=== PATIENT | male | born 1935 | race Caucasian/White ===

== ENCOUNTER 2016-08-20 12:37 | Outpatient (CLI) | payer MEDICARE | END 2016-08-20 12:38 | disposition home or self-care (01) | DX: I48.91 Unspecified atrial fibrillation (principal) ==

== ENCOUNTER 2016-10-21 13:20 | Outpatient (CLI) | payer MEDICARE | END 2016-10-21 13:21 | DX: I48.91 Unspecified atrial fibrillation (principal) ==

== ENCOUNTER 2016-10-28 16:11 | Outpatient (CLI) | payer MEDICARE | END 2016-10-28 16:12 | disposition home or self-care (01) | DX: I48.91 Unspecified atrial fibrillation (principal) ==

== ENCOUNTER 2016-11-05 14:44 | Outpatient (CLI) | payer MEDICARE | END 2016-11-05 14:45 | disposition home or self-care (01) | DX: I48.91 Unspecified atrial fibrillation (principal) ==

== ENCOUNTER 2016-11-19 15:56 | Outpatient (CLI) | payer MEDICARE | END 2016-11-19 23:59 | DX: I48.91 Unspecified atrial fibrillation (principal) ==

== ENCOUNTER 2016-11-26 14:43 | Outpatient (CLI) | payer MEDICARE | END 2016-11-26 14:44 | disposition home or self-care (01) | DX: I48.91 Unspecified atrial fibrillation (principal) ==

== ENCOUNTER 2016-12-01 13:00 | Outpatient (CLI) | payer MEDICARE | END 2016-12-01 13:01 | disposition home or self-care (01) | DX: I48.91 Unspecified atrial fibrillation (principal) ==

== ENCOUNTER 2016-12-15 10:41 | Outpatient (CLI) | payer MEDICARE | END 2016-12-15 10:42 | disposition home or self-care (01) | LOC: LAB.F 10:41 | PROVIDERS: ATTEND Emergency Medicine | DX: I48.91 Unspecified atrial fibrillation (principal) | CPT/HCPCS: 85610 ==

== ENCOUNTER 2016-12-31 08:00 | Outpatient (CLI) | payer MEDICARE | END 2016-12-31 08:01 | disposition home or self-care (01) | LOC: LAB.F 08:00 | PROVIDERS: ATTEND Emergency Medicine | DX: I48.91 Unspecified atrial fibrillation (principal) | CPT/HCPCS: 85610 ==

== ENCOUNTER 2016-12-31 15:28 | Outpatient (CLI) | payer MEDICARE | END 2016-12-31 15:29 | disposition home or self-care (01) | LOC: LAB.F 15:28 | PROVIDERS: ATTEND Emergency Medicine | DX: I48.91 Unspecified atrial fibrillation (principal) ==

== ENCOUNTER 2017-01-27 13:20 | Outpatient (CLI) | payer MEDICARE | END 2017-01-27 13:21 | disposition home or self-care (01) | LOC: LAB.F 13:20 | PROVIDERS: ATTEND Emergency Medicine | DX: I48.91 Unspecified atrial fibrillation (principal) | CPT/HCPCS: 85610 ==

== ENCOUNTER 2017-02-10 08:00 | Outpatient (CLI) | payer MEDICARE | END 2017-02-10 08:01 | disposition home or self-care (01) | LOC: LAB.F 08:00 | PROVIDERS: ATTEND Emergency Medicine | DX: I48.91 Unspecified atrial fibrillation (principal) | CPT/HCPCS: 85610 ==

== ENCOUNTER 2017-03-10 13:47 | Outpatient (CLI) | payer MEDICARE | END 2017-03-10 13:48 | disposition home or self-care (01) | LOC: LAB.F 13:47 | PROVIDERS: ATTEND Emergency Medicine | DX: I48.91 Unspecified atrial fibrillation (principal) | CPT/HCPCS: 85610 ==

== ENCOUNTER 2017-03-24 11:23 | Outpatient (CLI) | payer MEDICARE | END 2017-03-24 11:24 | disposition home or self-care (01) | LOC: LAB.F 11:23 | PROVIDERS: ATTEND Emergency Medicine | DX: I48.91 Unspecified atrial fibrillation (principal) | CPT/HCPCS: 85610 ==

== ENCOUNTER 2017-04-07 09:30 | Outpatient (CLI) | payer MEDICARE | END 2017-04-07 09:31 | disposition home or self-care (01) | LOC: LAB.F 09:30 | PROVIDERS: ATTEND Emergency Medicine | DX: I48.91 Unspecified atrial fibrillation (principal) | CPT/HCPCS: 85610 ==

== ENCOUNTER 2017-05-07 13:39 | Outpatient (CLI) | payer MEDICARE | END 2017-05-07 13:40 | disposition home or self-care (01) | LOC: LAB.F 13:39 | PROVIDERS: ATTEND Emergency Medicine | DX: I48.91 Unspecified atrial fibrillation (principal) | CPT/HCPCS: 85610 ==

== ENCOUNTER 2017-06-04 11:25 | Outpatient (CLI) | payer MEDICARE | END 2017-06-04 11:26 | disposition home or self-care (01) | LOC: LAB.F 11:25 | PROVIDERS: ATTEND Internal Medicine | DX: I48.91 Unspecified atrial fibrillation (principal) | CPT/HCPCS: 85610 ==

== ENCOUNTER 2017-06-15 10:53 | Outpatient (CLI) | payer MEDICARE | END 2017-06-15 10:54 | disposition home or self-care (01) | LOC: LAB.F 10:53 | PROVIDERS: ATTEND Emergency Medicine | DX: I48.91 Unspecified atrial fibrillation (principal) | CPT/HCPCS: 85610 ==

== ENCOUNTER 2017-06-22 10:31 | Outpatient (CLI) | payer MEDICARE | END 2017-06-22 10:32 | disposition home or self-care (01) | LOC: LAB.F 10:31 | PROVIDERS: ATTEND Emergency Medicine | DX: I48.91 Unspecified atrial fibrillation (principal) | CPT/HCPCS: 85610 ==

== ENCOUNTER 2017-08-16 08:00 | Outpatient (CLI) | payer MEDICARE | END 2017-08-16 08:01 | disposition home or self-care (01) | LOC: LAB.F 08:00 | PROVIDERS: ATTEND Emergency Medicine | DX: I48.91 Unspecified atrial fibrillation (principal) | CPT/HCPCS: 85610 ==

== ENCOUNTER 2017-08-30 12:38 | Outpatient (CLI) | payer MEDICARE | END 2017-08-30 12:39 | disposition home or self-care (01) | LOC: LAB.F 12:38 | PROVIDERS: ATTEND Emergency Medicine | DX: I48.91 Unspecified atrial fibrillation (principal) | CPT/HCPCS: 85610 ==

== ENCOUNTER 2017-09-08 23:14 | Emergency (ER) | payer MEDICARE ==
[2017-09-08 23:47] LABS: BILIRUBIN,URINE NEGATIVE (NEGATIVE); GLUCOSE, URINE (UA) 250 mg/dL (NEGATIVE); KETONES,URINE (UA) TRACE mg/dL (NEGATIVE); LEUKOCYTE ESTERASE, URINE NEGATIVE (NEGATIVE); NITRITE,URINE POSITIVE (NEGATIVE); OCCULT BLOOD,URINE LARGE (NEGATIVE); PH,URINE 5.5 PH (5.0-7.5); PROTEIN,URINE 100 mg/dL (NEGATIVE); UROBILINOGEN,URINE 2 E.U./dL (NORMAL)
[2017-09-08 23:48] LABS: CLARITY,URINE HAZY (CLEAR)
[2017-09-08 23:54] LABS: BACTERIA,URINE Few /HPF (None Seen); RBC,URINE TNTC /HPF (0-5); SQUAMOUS EPITHELIAL CELL,UR RARE Squamous (<= Few)
--- NOTE | 2017-09-09 00:04 | ED Physician Documentation ---
PD HPI ABD PAIN - Stated complaint Stated Complaint: MALE /ABD PX - Chief complaint Chief Complaint: Abd Pain - History obtained from History obtained from: Patient, Family - History of Present Illness Timing - onset: Enter time (1899), Today Timing - duration: Hours Timing - details: Gradual onset, Still present Quality: Sharp, Pain Location: Suprapubic Improved by: Laying still Worsened by: Moving, Position, Palpation Associated symptoms: Nausea, Dysuria, Hematuria Similar symptoms before: Has not had sx before Recently seen: Clinic - Additional information Additional information: 81-year-old male with a prior history of CABG has developed urinary frequency and urgency last night and he went into see his primary care doctor at [facility] in [place] today and was diagnosed with a urinary tract infection and he was put onto some amoxicillin. This afternoon his urine output was only a small amount of time and then only a dribble he began to have some suprapubic pain and is come in now with uncomfortable cramping pain. A catheter is been placed and he is much improved.He has had a low-grade fever he has not vomited. He does feel somewhat lightheaded. Review of Systems Constitutional: reports: Fever Eyes: denies: Decreased vision Ears: denies: Ear pain Nose: denies: Congestion Throat: denies: Sore throat Cardiac: denies: Chest pain / pressure, Palpitations Respiratory: denies: Dyspnea, Cough GI: reports: Abdominal Pain, Nausea. denies: Vomiting, Constipation, Diarrhea : reports: Dysuria, Frequency, Unable to Void Skin: denies: Rash Musculoskeletal: denies: Neck pain, Back pain, Extremity pain PD PAST MEDICAL HISTORY - Past Medical History Past Medical History: Yes Cardiovascular: Hypertension, Atrial flutter Endocrine/Autoimmune: Type 2 diabetes - Past Surgical History Past Surgical History: Yes Cardiovascular: Pacemaker, Other - Present Medications Home Medications: Ambulatory Orders Medication Instructions Recorded Confirmed Fluticasone [Flonase] 50 mcg INH DAILY 11/18/14 09/09/17 Hydrochlorothiazide 25 mg PO DAILY 11/18/14 09/09/17 Lisinopril 20 mg PO DAILY 11/18/14 09/09/17 Warfarin [Coumadin] 10 mg PO DAILY 11/18/14 09/09/17 Aspirin 81 mg PO DAILY 02/03/15 09/09/17 Atorvastatin [Lipitor] 20 mg PO DAILY 02/03/15 09/09/17 Metoprolol Tartrate 37.5 mg PO BID 02/03/15 09/09/17 metFORMIN [Glucophage] tab PO BID 09/09/17 - Allergies Allergies/Adverse Reactions: Allergies Allergy/AdvReac Type Severity Reaction Status Date / Time No Known Drug Allergies Allergy Verified 09/09/17 00:14 - Social History Does the pt smoke?: No Smoking Status: Never smoker Does the pt drink ETOH?: Yes Does the pt have substance abuse?: Yes Substance Use and Type: Marijuana - Immunizations Immunizations are current?: Yes PD ED PE NORMAL - Vitals Vital signs reviewed: Yes (Tachycardic and hypertensive) - General General: Alert and oriented X 3, No acute distress, Well developed/nourished - HEENT HEENT: Atraumatic, PERRL - Neck Neck: Supple, no meningeal sign - Cardiac Cardiac: RRR, No murmur - Respiratory Respiratory: No respiratory distress, Clear bilaterally - Abdomen Abdomen: Soft, Non tender - Back Back: No CVA TTP, No spinal TTP - Derm Derm: Normal color, Warm and dry, No rash - Extremities Extremities: No deformity, No edema - Neuro Neuro: No motor deficit, No sensory deficit Eye Opening: Spontaneous Motor: Obeys Commands Verbal: Oriented GCS Score: 15 - Psych Psych: Normal mood, Normal affect Results - Vitals Vitals: Vital Signs - 24 hr 09/08/17 09/09/17 23:15 01:17 Temperature 37.1 C Heart Rate 105 H 68 Respiratory 24 16 Rate Blood Pressure 172/78 H 128/83 H O2 Saturation 100 95 Oxygen O2 Source Room air - Labs Labs: Laboratory Tests 09/08/17 09/09/17 09/09/17 23:35 00:05 00:05 WBC 16.1 H RBC 4.41 L Hgb 13.3 L Hct 38.6 L MCV 87.4 MCH 30.2 MCHC 34.6 RDW 13.9 Plt Count 156 MPV 7.5 Neut # 13.6 H Lymph # 1.0 L [place] # 1.4 H Eos # 0.1 Baso # 0.1 Absolute Nucleated RBC 0.00 Nucleated RBC % 0.0 PT INR Sodium 133 L Potassium 3.2 L Chloride 94 L Carbon Dioxide 26 Anion Gap 13.0 BUN 23 H Creatinine 0.8 Estimated GFR (MDRD) 93 Glucose 194 H Calcium 9.4 Total Bilirubin 1.1 H AST 19 ALT 16 Alkaline Phosphatase 54 Total Protein 7.0 Albumin 4.0 Globulin 3.0 Albumin/Globulin Ratio 1.3 Lipase 17 L Urine Color YELLOW Urine Clarity HAZY Urine pH 5.5 Ur Specific [place] 1.020 Urine Protein 100 H Urine Glucose (UA) 250 H Urine Ketones TRACE Urine Occult Blood LARGE H Urine Nitrite POSITIVE H Urine Bilirubin NEGATIVE Urine Urobilinogen 2 H Ur Leukocyte Esterase NEGATIVE Urine RBC TNTC H Urine WBC 0-3 Ur Squamous Epith Cells RARE Squamous Urine Bacteria Few Ur Microscopic Review INDICATED Urine Culture Comments INDICATED 09/09/17 00:05 WBC RBC Hgb Hct MCV MCH MCHC RDW Plt Count MPV Neut # Lymph # [place] # Eos # Baso # Absolute Nucleated RBC Nucleated RBC % PT 28.1 H INR 2.6 H Sodium Potassium Chloride Carbon Dioxide Anion Gap BUN Creatinine Estimated GFR (MDRD) Glucose Calcium Total Bilirubin AST ALT Alkaline Phosphatase Total Protein Albumin Globulin Albumin/Globulin Ratio Lipase Urine Color Urine Clarity Urine pH Ur Specific [place] Urine Protein Urine Glucose (UA) Urine Ketones Urine Occult Blood Urine Nitrite Urine Bilirubin Urine Urobilinogen Ur Leukocyte Esterase Urine RBC Urine WBC Ur Squamous Epith Cells Urine Bacteria Ur Microscopic Review Urine Culture Comments PD MEDICAL DECISION MAKING - ED course Complexity details: reviewed old records, reviewed results, re-evaluated patient , considered differential, d/w patient, d/w family ED course: 81-year-old male with a history of A. fib and status post CABG has developed a urinary tract infection and tonight has developed urinary retention.He was seen earlier today and placed on amoxicillin his urinalysis does appear to have less white blood cells in it this evening and is positive for nitrites. He is administered intravenous saline and Zosyn. His urinary retention is treated with a Gurrola catheter which is left in place approximately 400 mL's of blood- tinged urine was drained with relief of the patient's pain. We will leave the Gurrola catheter in place and the patient will continue on his amoxicillin. Culture will be pending from today from both here and his primary care. Departure - Departure Disposition: 01 Home, Self Care Clinical Impression: Urinary retention Urinary tract infection Qualifiers: Urinary tract infection type: acute cystitis Hematuria presence: with hematuria Qualified Code(s): N30.01 - Acute cystitis with hematuria Condition: Stable Instructions: ED UTI Cystitis Male, ED Catheter Care Gurrola, ED Retention Urinary Male Follow-Up: Your, doctor [Other] Comments: Today it appears you have a urinary tract infection that has caused some fever as well as urinary retention. He will need to have a Gurrola catheter in place for up to a week and you should follow-up with her primary care doctor for removal of this we did give you a single dose of intravenous antibiotic here and we are expecting some improvement in the fever. If you continue to feel ill or feel worse return to the emergency department for further treatment.
[2017-09-09] MEDS ORDERED: SODIUM CHLORIDE 0.9% 1,000 ML IV ONE (00:05)
[2017-09-09] MEDS ORDERED: PIPERACILLIN/TAZOBACTAM 3.375 GM in SODIUM CHLORIDE 0.9% MINIBAG 100 ML IV STA (00:06)
[2017-09-09 00:15] LABS: BASOPHILS # (AUTO) 0.1 10^3/uL (0.0-0.1); BASOPHILS % (AUTO) 0.4 %; EOSINOPHILS # (AUTO) 0.1 10^3/uL (0.0-0.7); EOSINOPHILS % (AUTO) 0.4 %; HGB - HEMOGLOBIN 13.3 g/dL (14.0-18.0); LYMPHOCYTES % (AUTO) 6.4 %; MEAN CORPUSCULAR HEMOGLOBIN 30.2 pg (27.0-31.0); MEAN CORPUSCULAR HGB CONC 34.6 g/dL (32.0-36.0); MEAN CORPUSCULAR VOLUME 87.4 fL (80.0-94.0); MEAN PLATELET VOLUME 7.5 fL (7.4-11.4); MONOCYTES # (AUTO) 1.4 10^3/uL (0.0-1.0); MONOCYTES % (AUTO) 8.6 %; NEUTROPHILS # (AUTO) 13.6 10^3/uL (1.5-6.6); NEUTROPHILS % (AUTO) 84.2 %; PLT - PLATELET COUNT 156 10^3/uL (130-450); RED BLOOD COUNT 4.41 10^6/uL (4.70-6.10); RED CELL DISTRIBUTION WIDTH 13.9 % (12.0-15.0); WHITE BLOOD COUNT 16.1 x10^3/uL (4.8-10.8)
[2017-09-09 00:20] LABS: INR 2.6 (0.8-1.2); PT - PROTHROMBIN TIME 28.1 secs (9.9-12.6)
[2017-09-09 00:27] LABS: ALBUMIN/GLOBULIN RATIO 1.3 (1.0-2.2); BILIRUBIN,TOTAL 1.1 mg/dL (0.2-1.0); CALCIUM 9.4 mg/dL (8.5-10.3); CREATININE 0.8 mg/dL (0.6-1.2)
[2017-09-09] MEDS ORDERED: POTASSIUM CHLORIDE 20 MEQ TABLET PO STA (01:02)
[2017-09-09 02:19] VITALS: BP 154/78
== END 2017-09-09 02:18 | disposition home or self-care (01) ==
LOC: ED 23:14
DX: R33.9 Retention of urine, unspecified (principal); N30.01 Acute cystitis with hematuria; E11.9 Type 2 diabetes mellitus without complications; I10 Essential (primary) hypertension; I48.92 Unspecified atrial flutter; Z79.01 Long term (current) use of anticoagulants; Z79.82 Long term (current) use of aspirin; Z95.1 Presence of aortocoronary bypass graft
CPT/HCPCS: 51702; 51798; 80053; 81001; 83690; 85025; 85610; 87086; 96365; 99283; 99284; A9270; 81003

== ENCOUNTER 2017-09-09 22:03 | Emergency (ER) | payer MEDICARE ==
[2017-09-09] MEDS ORDERED: LIDOCAINE 2% URO-JET 5 ML SYRINGE UR STA (22:12)
--- NOTE | 2017-09-09 22:18 | ED Physician Documentation ---
PD HPI MALE - Stated complaint Stated Complaint: MALE - Chief complaint Chief Complaint: Abd Pain - History obtained from History obtained from: Patient - History of Present Illness Timing - details: Abrupt onset, Still present Associated symptoms: Dysuria Recently seen: Emergency Dept (had been seen in office ith Dx of UTI and put on abx, but then with urinary retention. Seen in ED last night and had sandoval placed. Some blood in urine after sandoval. He was draining okay todya until this evening when urine stopped coming out. Here with bladder fullness, pain.) Review of Systems Constitutional: denies: Fever, Chills GI: reports: Abdominal Pain. denies: Vomiting, Diarrhea : reports: Hematuria (since sandoval) PD PAST MEDICAL HISTORY - Past Medical History Cardiovascular: Hypertension, Atrial flutter Endocrine/Autoimmune: Type 2 diabetes - Past Surgical History Past Surgical History: Yes Cardiovascular: Pacemaker, Other - Present Medications Home Medications: Ambulatory Orders Medication Instructions Recorded Confirmed Fluticasone [Flonase] 50 mcg INH DAILY 11/18/14 09/09/17 Hydrochlorothiazide 25 mg PO DAILY 11/18/14 09/09/17 Lisinopril 20 mg PO DAILY 11/18/14 09/09/17 Warfarin [Coumadin] 10 mg PO DAILY 11/18/14 09/09/17 Aspirin 81 mg PO DAILY 02/03/15 09/09/17 Atorvastatin [Lipitor] 20 mg PO DAILY 02/03/15 09/09/17 Metoprolol Tartrate 37.5 mg PO BID 02/03/15 09/09/17 metFORMIN [Glucophage] tab PO BID 09/09/17 - Allergies Allergies/Adverse Reactions: Allergies Allergy/AdvReac Type Severity Reaction Status Date / Time No Known Drug Allergies Allergy Verified 09/09/17 22:10 - Social History Does the pt smoke?: No Smoking Status: Never smoker Does the pt drink ETOH?: Yes Does the pt have substance abuse?: Yes - Immunizations Immunizations are current?: Yes PD ED PE NORMAL - Vitals Vital signs reviewed: Yes - General General: Alert and oriented X 3, Well developed/nourished, Other (appears uncomfortable) - Abdomen Abdomen: Soft, Non tender, Non distended - Male Male : Other (external genitalia normal. Sandoval in place but not draining. ) - Rectal Rectal: Deferred - Back Back: No CVA TTP - Derm Derm: Normal color Results - Vitals Vitals: Vital Signs - 24 hr 09/09/17 22:07 Temperature 36.5 C Heart Rate 111 H Respiratory 22 Rate Blood Pressure 182/114 H O2 Saturation 98 Oxygen O2 Source Room air PD MEDICAL DECISION MAKING - ED course Complexity details: reviewed old records, re-evaluated patient (It will instill but not drain back. Presume some clots at end. Can have nurse irrigate again and might need to replace it again with three way to promote irrigation. Once flowing more consistent, will discharge with sandoval instructions. ), considered differential (nursing removed prior sandoval and placed larger one. Blood from sandoval and passed clot initially, then 400 ml urine out. It now will flush but not return easily. Will have nursing irrigate it more to get clots out. ), d/w patient Departure - Departure Disposition: 01 Home, Self Care Clinical Impression: Anticoagulant long-term use Complication, blocked Sandoval catheter Qualifiers: Encounter type: subsequent encounter Qualified Code(s): T83.091D - Other mechanical complication of indwelling urethral catheter, subsequent encounter Hematuria Qualifiers: Hematuria type: gross Qualified Code(s): R31.0 - Gross hematuria Condition: Stable Record reviewed to determine appropriate education?: Yes Instructions: ED Catheter Care Sandoval Follow-Up: JULIETTE ONEAL MD [Primary Care Provider] - Comments: Continue current medications. You can try irrigating the Sandoval if it does not seem to be draining well. Return if needed. Follow-up with your primary care in 3-5 days.
[2017-09-09] MEDS ORDERED: HYDROmorphone 1 MG/ML SYRINGE IM STA ×2 (22:31→23:41)
[2017-09-09] MEDS ORDERED: OXYBUTYNIN 5MG TABLET PO STA (22:32)
[2017-09-09] MEDS ORDERED: KETOROLAC 60 MG/2 ML VIAL IM STA (23:41)
--- NOTE | 2017-09-10 02:08 | MISCELLANEOUS PROVIDER NOTE ---
Miscellaneous Provider Note - - Note: Received sign-out from Dr. Priest. Patient was already flagged for discharge, but patient and spouse requested to stay a little longer, as they were anxious that the catheter might clot off again. They proposed waiting in the waiting room, at which point I suggested that if they were going to do so, it would make more sense to hold him in the ED so that he wouldn't have to reregister should the catheter clot off. I recommended he increase PO fluids, and he was given plenty of water to drink. The urine continued to flow well into the catheter, remained bloody but not opaque. By 2 AM, patient was requesting discharge, feels comfortable going home and has urology follow-up already arranged for later today.
[2017-09-10 02:45] VITALS: BP 148/88
== END 2017-09-10 02:30 | disposition home or self-care (01) ==
LOC: ED 22:03
DX: T83.098A Other mechanical complication of other urinary catheter, initial encounter (principal); R31.0 Gross hematuria; I48.92 Unspecified atrial flutter; Z79.01 Long term (current) use of anticoagulants; I10 Essential (primary) hypertension; E11.9 Type 2 diabetes mellitus without complications; Z79.84 Long term (current) use of oral hypoglycemic drugs; Z95.0 Presence of cardiac pacemaker; Z79.82 Long term (current) use of aspirin; R33.9 Retention of urine, unspecified; N30.01 Acute cystitis with hematuria; Z95.1 Presence of aortocoronary bypass graft; R11.0 Nausea
CPT/HCPCS: 51702; 51703; 51798; 80053; 81001; 83690; 85025; 85610; 87086; 96365; 96372; 99283; 99284; A9270; J1170; 81003

== ENCOUNTER 2017-09-12 17:00 | Emergency (ER) | payer MEDICARE ==
[2017-09-12 17:20] VITALS: BP 160/104
[2017-09-12] MEDS ORDERED: OPIUM/BELLADONNA 60/16.2MG SUPPOSITORY PR STA (17:24)
--- NOTE | 2017-09-12 17:28 | ED Physician Documentation ---
History of Present Illness - Stated complaint Stated Complaint: MALE - Chief complaint Chief Complaint: Abd Pain - History obtained from History obtained from: Patient, Family - History of Present Illness Pain level max: 8 Pain level now: 3 Improved by: nothing Worsened by: nothing - Additonal information Additional information: Patient is a 81-year-old male who presents to the emergency department with bladder spasms after having a Sandoval catheter inserted. His Sandoval catheter has been in place for a UTI with continued bleeding. He is on warfarin as well. Saw the urologist on Wednesday, the catheter was upsized and he was placed on oxybutynin. Continued to have spasms. Because of the continued spasm and and lack of relief with oxybutynin, came to the emergency department for evaluation. The catheter is still draining freely, light pink in color Review of Systems Constitutional: denies: Fever, Chills Respiratory: denies: Cough GI: reports: Constipation (intermittent). denies: Vomiting Skin: denies: Rash Musculoskeletal: denies: Neck pain, Back pain Neurologic: denies: Headache PD PAST MEDICAL HISTORY - Past Medical History Past Medical History: Yes Cardiovascular: Hypertension, Atrial flutter Endocrine/Autoimmune: Type 2 diabetes : Indwelling catheter Other Past Medical History: urinary blockage - Past Surgical History Past Surgical History: Yes Cardiovascular: Pacemaker, Other - Present Medications Home Medications: Ambulatory Orders Medication Instructions Recorded Confirmed Fluticasone [Flonase] 50 mcg INH DAILY 11/18/14 09/09/17 Hydrochlorothiazide 25 mg PO DAILY 11/18/14 09/09/17 Lisinopril 20 mg PO DAILY 11/18/14 09/09/17 Warfarin [Coumadin] 10 mg PO DAILY 11/18/14 09/09/17 Aspirin 81 mg PO DAILY 02/03/15 09/09/17 Atorvastatin [Lipitor] 20 mg PO DAILY 02/03/15 09/09/17 Metoprolol Tartrate 37.5 mg PO BID 02/03/15 09/09/17 metFORMIN [Glucophage] tab PO BID 09/09/17 Amoxicillin 500 mg PO 09/12/17 09/12/17 Docusate Sodium 250Mg Capsule 250 mg PO DAILY PRN #20 capsule 09/12/17 [Colace 250Mg Capsule] Hydrocodone/Acetaminophen 1 - 2 each PO Q6H PRN #14 tablet 09/12/17 [Hydrocodon-Acetaminophen 5-325] Opium/Belladonn 60/16.2MG Supp [B 1 each AL Q6H PRN #14 supp 09/12/17 & O Supp] Oxybutynin Chloride [Ditropan Xl] 10 mg PO 09/12/17 Polyethylene Glycol 3350 [Miralax] 17 gm PO DAILY PRN #1 bottle 09/12/17 - Allergies Allergies/Adverse Reactions: Allergies Allergy/AdvReac Type Severity Reaction Status Date / Time No Known Drug Allergies Allergy Verified 09/12/17 17:11 - Social History Does the pt smoke?: No Smoking Status: Never smoker Does the pt drink ETOH?: Yes Does the pt have substance abuse?: Yes - Immunizations Immunizations are current?: Yes PD ED PE NORMAL - Vitals Vital signs reviewed: Yes - General General: Alert and oriented X 3, No acute distress - HEENT HEENT: Moist mucous membranes - Cardiac Cardiac: RRR - Respiratory Respiratory: No respiratory distress, Clear bilaterally - Abdomen Abdomen: Soft, Non tender, Non distended - Male Male : Other (sandoval in place, draining light pink urine) - Derm Derm: Warm and dry - Neuro Neuro: Alert and oriented X 3 - Psych Psych: Normal mood, Normal affect Results - Vitals Vitals: Vital Signs - 24 hr 09/12/17 17:07 Temperature 36.7 C Heart Rate 82 Respiratory 18 Rate Blood Pressure 160/104 H O2 Saturation 96 Oxygen O2 Source Room air PD MEDICAL DECISION MAKING - ED course Complexity details: reviewed old records, re-evaluated patient, considered differential, d/w patient, d/w family, d/w account consultant (Dr. Lazar (urology oncology patient navigator for Dr. Geiger)) ED course: Patient sees Dr. Geiger for urology at [facility]. On-call physician was contacted. Discussed case with Dr. Lazar, he recommends that the patient can increase the oxybutynin, 2 pills twice a day or we can trial the patient on B and O suppositories along with some pain medication and stool softeners. Discussed the option with the patient and his , they will trial a B and O suppositories, but I will also prescribe some pain medication and stool softeners for them. We will have him follow-up with urology on Wednesday as scheduled. Patient and family counseled regarding signs and symptoms for which I believe and urgent re-evaluation would be necessary. Patient with good understanding of and agreement to plan and is comfortable going home at this time This document was made in part using voice recognition software. While efforts are made to proofread this document, sound alike and grammatical errors may occur. Departure - Departure Disposition: Home, Self Care Clinical Impression: Bladder spasm Condition: Good Instructions: ED Catheter Care Sandoval Follow-Up: Provider,Other [Primary Care Provider] - Within 1 week Prescriptions: Docusate Sodium 250Mg Capsule [Colace 250Mg Capsule] 250 mg PO DAILY PRN #20 capsule PRN Reason: Constipation Hydrocodone/Acetaminophen [Hydrocodon-Acetaminophen 5-325] 1 - 2 each PO Q6H PRN #14 tablet PRN Reason: pain Opium/Belladonn 60/16.2MG Supp [B & O Supp] 1 each AL Q6H PRN #14 supp PRN Reason: Bladder Spasms Polyethylene Glycol 3350 [Miralax] 17 gm PO DAILY PRN #1 bottle PRN Reason: Constipation Comments: Return if you worsen. Follow-up with urology for further care. You can also double to oxybutynin dose. I spoke with Dr. Nagi bradford. Discharge Date/Time: 09/12/17 18:05
== END 2017-09-12 18:05 | disposition home or self-care (01) ==
LOC: ED 17:00
DX: N32.89 Other specified disorders of bladder (principal); E11.9 Type 2 diabetes mellitus without complications; I10 Essential (primary) hypertension; Z95.0 Presence of cardiac pacemaker; Z79.01 Long term (current) use of anticoagulants; Z79.82 Long term (current) use of aspirin; Z96.0 Presence of urogenital implants
CPT/HCPCS: 99283; A9270

== ENCOUNTER 2017-09-13 21:33 | Emergency (ER) | payer MEDICARE ==
[2017-09-13] MEDS ORDERED: HYDROmorphone 1 MG/ML SYRINGE IVP STA ×2 (21:56→22:22)
--- NOTE | 2017-09-13 22:02 | ED Physician Documentation ---
PD HPI MALE - Stated complaint Stated Complaint: MALE - Chief complaint Chief Complaint: Abd Pain - History obtained from History obtained from: Patient, Family - History of Present Illness Timing - onset: Other (see below) - Additional information Additional information: patient was evaluated at an urgent care center 09/08 and diagnosed with UTI, prescribed an antibiotic. He presented to [facility] ED that same day due to urinary retention and had resolution of symptoms with placement of sandoval catheter. He returned the following day due to urinary retention (secondary to blood clots in urine), with resolution of symptoms (severe suprapubic discomfort) with removal and replacement of the sandoval catheter. The following day (09/10), he was seen by urology in outpatient setting and the catheter was irrigated of clots. He returned to [facility] ED yesterday 09/12 for suprapubic pain and pain at head of penis; urinary retention was not suspected at that time, given B+O suppository and rx for hydrocodone for suspected bladder spasm. He returned to the outpatient clinic earlier today (in [place]) for same symptoms, sandoval irrigated and sent home but pain started again before he got home. gave 2 vicodin to patient which has provided no relief. Presents c/o pain at head of penis radiating to base of bladder. Review of Systems Constitutional: denies: Fever, Chills, Sweats Cardiac: reports: Reviewed and negative Respiratory: reports: Reviewed and negative GI: reports: Reviewed and negative : reports: Hematuria Musculoskeletal: denies: Back pain PD PAST MEDICAL HISTORY - Past Medical History Cardiovascular: Hypertension, Atrial flutter Endocrine/Autoimmune: Type 2 diabetes : Indwelling catheter - Past Surgical History Past Surgical History: Yes Cardiovascular: Pacemaker, Other - Present Medications Home Medications: Ambulatory Orders Medication Instructions Recorded Confirmed Fluticasone [Flonase] 50 mcg INH DAILY 11/18/14 09/09/17 Hydrochlorothiazide 25 mg PO DAILY 11/18/14 09/09/17 Lisinopril 20 mg PO DAILY 11/18/14 09/09/17 Warfarin [Coumadin] 10 mg PO DAILY 11/18/14 09/09/17 Aspirin 81 mg PO DAILY 02/03/15 09/09/17 Atorvastatin [Lipitor] 20 mg PO DAILY 02/03/15 09/09/17 Metoprolol Tartrate 37.5 mg PO BID 02/03/15 09/09/17 metFORMIN [Glucophage] tab PO BID 09/09/17 Amoxicillin 500 mg PO 09/12/17 09/12/17 Docusate Sodium 250Mg Capsule 250 mg PO DAILY PRN #20 capsule 09/12/17 [Colace 250Mg Capsule] Hydrocodone/Acetaminophen 1 - 2 each PO Q6H PRN #14 tablet 09/12/17 [Hydrocodon-Acetaminophen 5-325] Opium/Belladonn 60/16.2MG Supp [B 1 each [place] Q6H PRN #14 supp 09/12/17 & O Supp] Oxybutynin Chloride [Ditropan Xl] 10 mg PO 09/12/17 Polyethylene Glycol 3350 [Miralax] 17 gm PO DAILY PRN #1 bottle 09/12/17 - Allergies Allergies/Adverse Reactions: Allergies Allergy/AdvReac Type Severity Reaction Status Date / Time No Known Drug Allergies Allergy Verified 09/12/17 17:11 - Social History Does the pt smoke?: No Smoking Status: Never smoker Does the pt drink ETOH?: Yes Does the pt have substance abuse?: Yes - Immunizations Immunizations are current?: Yes PD ED PE NORMAL - Vitals Vital signs reviewed: Yes - General General: Alert and oriented X 3, Well developed/nourished, Other (obvious painful distress, grimacing and mildly diaphoretic) - HEENT HEENT: Moist mucous membranes - Cardiac Cardiac: RRR, No murmur - Respiratory Respiratory: No respiratory distress, Clear bilaterally - Abdomen Abdomen: Soft, Non distended, Other (TTP suprapubic ) - Back Back: No CVA TTP - Derm Derm: Normal color - Neuro Neuro: Alert and oriented X 3 Results - Vitals Vitals: Vital Signs - 24 hr 09/13/17 09/14/17 09/14/17 21:44 00:22 01:14 Temperature 36.4 C L Heart Rate 121 H 117 H 114 H Respiratory 26 H 22 18 Rate Blood Pressure 222/154 H 150/118 H 184/107 H O2 Saturation 98 95 94 Oxygen O2 Source Room air PD MEDICAL DECISION MAKING - ED course Complexity details: reviewed old records, reviewed results (patient had blood tests performed earlier today at the clinic at [place], and has those results with her; I reviewed these and CBC is unermarkable, INR 2.6), re- evaluated patient, considered differential, d/w patient, d/w family ED course: Given 1mg dilaudid and repeat dose with minimal relief. Bladder scan read zero on first read, 30cc on repeat. Thick blood noted in sandoval tubing. The catheter was irrigated and there was large UO (several hundred cc) associated with rapid relief of his pain. Unfortunately, he repeatedly went back into retention and thus catheter was changed to a 3-way catheter and CBI started. Case d/w Dr. Lazar (urology on-call for patient's urologist, Dr. Geiger), would consider transfer to the urgent care center at [place], as they have observation beds at that facility. I contacted the [facility] [place] and they arranged for this transfer. I received a call from [facility] medic on board with patient in ambulance; he called to report that patient was again in severe pain and no UO. He had immediately clamped off the CBI as soon as patient had no UO and the discomfort , and Black then tried to irrigate the catheter without success (able to instill fluid but not withdraw it). The plan we discussed at this point was to go to [facility] ED (nearest ED at the time of our discussion). I then contacted Dr. Sahni (ED physician at [facility]) to discuss the case with him. Departure - Departure Disposition: 02 Transfer Acute Care Hosp Clinical Impression: Urinary retention Hematuria Qualifiers: Hematuria type: gross Qualified Code(s): R31.0 - Gross hematuria Condition: Stable Discharge Date/Time: 09/14/17 01:35
[2017-09-13] MEDS ORDERED: HYDROmorphone 1 MG/ML SYRINGE ONE (22:04)
[2017-09-13] MEDS ORDERED: OPIUM/BELLADONNA 60/16.2MG SUPPOSITORY PR STA (22:23)
[2017-09-14] MEDS ORDERED: HYDROmorphone 1 MG/ML SYRINGE IVP STA ×2 (00:01→01:27)
[2017-09-14 01:16] VITALS: BP 184/107
== END 2017-09-14 01:35 | disposition short-term general hospital (02) ==
LOC: ED 21:33
DX: R33.9 Retention of urine, unspecified (principal); R31.0 Gross hematuria; I10 Essential (primary) hypertension; E11.9 Type 2 diabetes mellitus without complications; Z79.84 Long term (current) use of oral hypoglycemic drugs; Z79.01 Long term (current) use of anticoagulants; Z79.82 Long term (current) use of aspirin; Z95.0 Presence of cardiac pacemaker; Z96.0 Presence of urogenital implants
CPT/HCPCS: 51700; 96374; 96376; 99284; A9270; J1170

== ENCOUNTER 2017-09-14 01:38 | Outpatient (CLI) | payer MEDICARE | END 2017-09-14 01:39 | disposition other institution (70) | LOC: EMS 01:38 | PROVIDERS: ATTEND Surgery | DX: R33.9 Retention of urine, unspecified (principal); R10.30 Lower abdominal pain, unspecified; R11.10 Vomiting, unspecified; Z79.01 Long term (current) use of anticoagulants | CPT/HCPCS: A0425; A0426 ==

== ENCOUNTER 2017-10-28 10:30 | Outpatient (CLI) | payer MEDICARE ==
[2017-10-28 18:24] LABS: BASOPHILS # (AUTO) 0.1 10^3/uL (0.0-0.1); BASOPHILS % (AUTO) 0.9 %; EOSINOPHILS # (AUTO) 0.3 10^3/uL (0.0-0.7); EOSINOPHILS % (AUTO) 5.4 %; LYMPHOCYTES # (AUTO) 1.1 10^3/uL (1.5-3.5); LYMPHOCYTES % (AUTO) 19.3 %; MEAN CORPUSCULAR HEMOGLOBIN 24.3 pg (27.0-31.0); MEAN CORPUSCULAR HGB CONC 30.8 g/dL (32.0-36.0); MEAN CORPUSCULAR VOLUME 78.8 fL (80.0-94.0); MEAN PLATELET VOLUME 7.2 fL (7.4-11.4); MONOCYTES # (AUTO) 0.4 10^3/uL (0.0-1.0); MONOCYTES % (AUTO) 6.4 %; PLT - PLATELET COUNT 303 10^3/uL (130-450); RED BLOOD COUNT 4.11 10^6/uL (4.70-6.10); RED CELL DISTRIBUTION WIDTH 16.5 % (12.0-15.0); WHITE BLOOD COUNT 5.9 x10^3/uL (4.8-10.8)
[2017-10-28 18:34] LABS: PT - PROTHROMBIN TIME 22.1 secs (9.9-12.6)
== END 2017-10-28 10:31 | disposition home or self-care (01) ==
LOC: LAB.F 10:30
PROVIDERS: ATTEND Emergency Medicine
DX: I48.91 Unspecified atrial fibrillation (principal)
CPT/HCPCS: 36415; 85025; 85610

== ENCOUNTER 2017-12-02 13:51 | Outpatient (CLI) | payer MEDICARE | END 2017-12-02 13:52 | disposition home or self-care (01) | LOC: LAB.F 13:51 | PROVIDERS: ATTEND Emergency Medicine | DX: I48.91 Unspecified atrial fibrillation (principal) | CPT/HCPCS: 85610 ==

== ENCOUNTER 2018-02-24 11:22 | Outpatient (CLI) | payer MEDICARE | END 2018-02-24 11:23 | disposition home or self-care (01) | LOC: LAB.F 11:22 | PROVIDERS: ATTEND Emergency Medicine | DX: I48.91 Unspecified atrial fibrillation (principal) | CPT/HCPCS: 85610 ==

== ENCOUNTER 2018-03-10 11:48 | Outpatient (CLI) | payer MEDICARE | END 2018-03-10 11:49 | disposition home or self-care (01) | LOC: LAB.F 11:48 | PROVIDERS: ATTEND Emergency Medicine | DX: I48.91 Unspecified atrial fibrillation (principal) | CPT/HCPCS: 85610 ==

== ENCOUNTER 2018-03-17 14:14 | Outpatient (CLI) | payer MEDICARE | END 2018-03-17 14:15 | disposition home or self-care (01) | LOC: LAB.F 14:14 | PROVIDERS: ATTEND Emergency Medicine | DX: I48.91 Unspecified atrial fibrillation (principal) | CPT/HCPCS: 85610 ==

== ENCOUNTER 2018-04-12 11:12 | Outpatient (CLI) | payer MEDICARE | END 2018-04-12 11:13 | disposition home or self-care (01) | LOC: LAB.F 11:12 | PROVIDERS: ATTEND Emergency Medicine | DX: I48.91 Unspecified atrial fibrillation (principal) | CPT/HCPCS: 85610 ==

== ENCOUNTER 2018-04-19 11:54 | Outpatient (CLI) | payer MEDICARE | END 2018-04-19 11:55 | disposition home or self-care (01) | LOC: LAB.F 11:54 | PROVIDERS: ATTEND Emergency Medicine | DX: I48.91 Unspecified atrial fibrillation (principal) | CPT/HCPCS: 85610 ==

== ENCOUNTER 2018-05-30 13:52 | Outpatient (CLI) | payer MEDICARE | END 2018-05-30 13:53 | disposition home or self-care (01) | LOC: LAB.F 13:52 | PROVIDERS: ATTEND Emergency Medicine | DX: I48.91 Unspecified atrial fibrillation (principal) | CPT/HCPCS: 85610 ==

== ENCOUNTER 2018-06-14 08:24 | Outpatient (CLI) | payer MEDICARE | END 2018-06-14 08:25 | disposition home or self-care (01) | LOC: LAB.F 08:24 | PROVIDERS: ATTEND Emergency Medicine | DX: I48.91 Unspecified atrial fibrillation (principal) | CPT/HCPCS: 85610 ==

== ENCOUNTER 2018-07-11 13:08 | Outpatient (CLI) | payer MEDICARE | END 2018-07-11 13:09 | disposition home or self-care (01) | LOC: LAB.F 13:08 | PROVIDERS: ATTEND Emergency Medicine | DX: I48.91 Unspecified atrial fibrillation (principal) | CPT/HCPCS: 85610 ==

== ENCOUNTER 2018-08-01 12:39 | Outpatient (CLI) | payer MEDICARE | END 2018-08-01 12:40 | disposition home or self-care (01) | LOC: LAB.F 12:39 | PROVIDERS: ATTEND Emergency Medicine | DX: I48.91 Unspecified atrial fibrillation (principal) | CPT/HCPCS: 85610 ==

== ENCOUNTER 2018-09-06 11:27 | Outpatient (CLI) | payer MEDICARE | END 2018-09-06 11:28 | disposition home or self-care (01) | LOC: LAB.F 11:27 | PROVIDERS: ATTEND Emergency Medicine | DX: I48.91 Unspecified atrial fibrillation (principal) | CPT/HCPCS: 85610 ==

== ENCOUNTER 2018-10-18 13:55 | Outpatient (CLI) | payer MEDICARE | END 2018-10-18 13:56 | disposition home or self-care (01) | LOC: LAB.F 13:55 | PROVIDERS: ATTEND Emergency Medicine | DX: I48.91 Unspecified atrial fibrillation (principal) | CPT/HCPCS: 85610 ==

== ENCOUNTER 2018-11-08 12:43 | Outpatient (CLI) | payer MEDICARE | END 2018-11-08 12:44 | disposition home or self-care (01) | LOC: LAB.F 12:43 | PROVIDERS: ATTEND Emergency Medicine | DX: I48.91 Unspecified atrial fibrillation (principal) | CPT/HCPCS: 85610 ==

== ENCOUNTER 2018-11-18 09:37 | Outpatient (CLI) | payer MEDICARE | END 2018-11-18 09:38 | disposition home or self-care (01) | LOC: LAB.F 09:37 | PROVIDERS: ATTEND Emergency Medicine | DX: I48.91 Unspecified atrial fibrillation (principal) | CPT/HCPCS: 85610 ==

== ENCOUNTER 2019-05-18 10:08 | Outpatient (CLI) | payer MEDICARE | END 2019-05-18 10:09 | disposition home or self-care (01) | LOC: LAB.S 10:08 | PROVIDERS: ATTEND Emergency Medicine | DX: I48.91 Unspecified atrial fibrillation (principal) | CPT/HCPCS: 85610 ==

== ENCOUNTER 2021-03-03 12:45 | Emergency (ER) | payer MEDICARE ==
[2021-03-03 13:29] LABS: BASOPHILS # (AUTO) 0.1 10^3/uL (0.0-0.1); BASOPHILS % (AUTO) 0.5 %; EOSINOPHILS # (AUTO) 0.3 10^3/uL (0.0-0.7); EOSINOPHILS % (AUTO) 1.6 %; HGB - HEMOGLOBIN 14.4 g/dL (14.0-18.0); LYMPHOCYTES # (AUTO) 0.8 10^3/uL (1.5-3.5); MEAN CORPUSCULAR HGB CONC 32.7 g/dL (32.0-36.0); MEAN CORPUSCULAR VOLUME 88.7 fL (80.0-94.0); MEAN PLATELET VOLUME 8.9 fL (7.4-11.4); MONOCYTES # (AUTO) 1.1 10^3/uL (0.0-1.0); MONOCYTES % (AUTO) 6.8 %; NEUTROPHILS # (AUTO) 13.5 10^3/uL (1.5-6.6); NEUTROPHILS % (AUTO) 85.9 %; PLT - PLATELET COUNT 231 10^3/uL (130-450); RED BLOOD COUNT 4.96 10^6/uL (4.70-6.10); RED CELL DISTRIBUTION WIDTH 14.2 % (12.0-15.0); WHITE BLOOD COUNT 15.7 x10^3/uL (4.8-10.8)
[2021-03-03 13:31] LABS: BILIRUBIN,URINE NEGATIVE (NEGATIVE); GLUCOSE, URINE (UA) NEGATIVE (NEGATIVE); KETONES,URINE (UA) TRACE mg/dL (NEGATIVE); LEUKOCYTE ESTERASE, URINE NEGATIVE (NEGATIVE); NITRITE,URINE NEGATIVE (NEGATIVE); OCCULT BLOOD,URINE NEGATIVE (NEGATIVE); PH,URINE 6.5 PH (5.0-7.5); PROTEIN,URINE TRACE mg/dL (NEGATIVE); UROBILINOGEN,URINE 1 (NORMAL) E.U./dL (NORMAL)
[2021-03-03 13:33] LABS: CLARITY,URINE CLEAR (CLEAR)
[2021-03-03 13:43] LABS: ALBUMIN 4.7 g/dL (3.2-5.5); ALBUMIN/GLOBULIN RATIO 1.4 (1.0-2.2); CALCIUM 9.7 mg/dL (8.5-10.3); POTASSIUM 3.6 mmol/L (3.5-5.0)
[2021-03-03] MEDS: ONDANSETRON 4 MG/2 ML VIAL IVP STA (14:40)
[2021-03-03] MEDS: SODIUM CHLORIDE 0.9% 1,000 ML IV STA (14:40)
--- NOTE | 2021-03-03 15:24 | ED Physician Documentation ---
History of Present Illness - Stated complaint Stated Complaint: VOMITING/DIARRHEA - Chief complaint Chief Complaint: Abd Pain - History obtained from History obtained from: Patient - Additonal information Additional information: Patient comes emergency department chief complaint of 4 episodes of vomiting over the last 4 months with most recent episode this morning. Patient and state that the first episode 4 months ago occurred after the patient had been on Keflex, and thought it was just a reaction to the Keflex. The next episode 1 month later occurred after eating some food and they thought it was a reaction to the food. Patient had another episode tonight of weeks ago with unclear trigger. His last episode was this morning. They feel that a pattern has been established because every time the patient gets sick, his symptoms last only for 2 or 3 hours and then he feels completely better. Usually, he is ready to eat and drink again and can hold food down with no problem. There is no nausea or pain in between episodes over weeks of time. Patient denies a feeling of fullness. He has not been exercising and eating as much as usual for the last year and has lost about 20 pounds. There is no blood in his vomit. No bowel changes. He denies any pain in his abdomen. No history of ulcers. Prior to 4 months ago, patient and think his last episode of this kind of symptom was about 3 years ago while they were traveling in [facility]. Patient denies any consistent triggers that are the same from episode to episode. No history of abdominal pathology. No other complaints at this time. Review of Systems Ten Systems: 10 systems reviewed and negative Constitutional: reports: Reviewed and negative Eyes: reports: Reviewed and negative Ears: reports: Reviewed and negative Nose: reports: Reviewed and negative Throat: reports: Reviewed and negative Cardiac: reports: Reviewed and negative Respiratory: reports: Reviewed and negative GI: reports: Nausea, Vomiting : reports: Reviewed and negative Skin: reports: Reviewed and negative Musculoskeletal: reports: Reviewed and negative Neurologic: reports: Reviewed and negative Psychiatric: reports: Reviewed and negative Endocrine: reports: Reviewed and negative Immunocompromised: reports: Reviewed and negative PD PAST MEDICAL HISTORY - Past Medical History Past Medical History: Yes Cardiovascular: Hypertension, Atrial flutter Endocrine/Autoimmune: Type 2 diabetes : Indwelling catheter - Past Surgical History Past Surgical History: Yes Cardiovascular: Pacemaker, Other - Present Medications Home Medications: Ambulatory Orders Medication Instructions Recorded Confirmed Fluticasone [Flonase] 50 mcg INH DAILY 11/18/14 09/09/17 Warfarin [Coumadin] 10 mg PO DAILY 11/18/14 09/09/17 hydroCHLOROthiazide 25 mg PO DAILY 11/18/14 09/09/17 [Hydrochlorothiazide] lisinopriL [Lisinopril] 20 mg PO DAILY 11/18/14 09/09/17 Aspirin 81 mg PO DAILY 02/03/15 09/09/17 Atorvastatin [Lipitor] 20 mg PO DAILY 02/03/15 09/09/17 Metoprolol Tartrate 37.5 mg PO BID 02/03/15 09/09/17 metFORMIN [Glucophage] tab PO BID 09/09/17 Amoxicillin 500 mg PO 09/12/17 09/12/17 Docusate Sodium 250Mg Capsule 250 mg PO DAILY PRN #20 capsule 09/12/17 [Colace 250Mg Capsule] Hydrocodone/Acetaminophen 1 - 2 each PO Q6H PRN #14 tablet 09/12/17 [Hydrocodon-Acetaminophen 5-325] Opium/Belladonn 60/16.2MG Supp [B 1 each [place] Q6H PRN #14 supp 09/12/17 & O Supp] Oxybutynin Chloride [Ditropan Xl] 10 mg PO 09/12/17 polyethylene glycoL 3350 [Miralax] 17 gm PO DAILY PRN #1 bottle 09/12/17 Ondansetron Odt [Zofran] 4 mg TL Q6H PRN #10 tablet 03/03/21 - Allergies Allergies/Adverse Reactions: Allergies Allergy/AdvReac Type Severity Reaction Status Date / Time No Known Drug Allergies Allergy Verified 03/03/21 13:00 - Social History Does the pt smoke?: No Smoking Status: Never smoker Does the pt drink ETOH?: Yes Does the pt have substance abuse?: Yes - Immunizations Immunizations are current?: Yes PD ED PE NORMAL - Vitals Vital signs reviewed: Yes - General General: Alert and oriented X 3, No acute distress, Well developed/nourished - HEENT HEENT: Atraumatic, PERRL, EOMI, Moist mucous membranes - Neck Neck: Supple, no meningeal sign - Cardiac Cardiac: RRR, No murmur, Strong equal pulses - Respiratory Respiratory: No respiratory distress, Clear bilaterally - Abdomen Abdomen: Soft, Non tender, Non distended - Derm Derm: Normal color, Warm and dry, No rash - Extremities Extremities: No deformity, No edema - Neuro Neuro: Alert and oriented X 3, 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, Normal speech - Psych Psych: Normal mood, Normal affect Results - Vitals Vitals: Vital Signs - 24 hr 03/03/21 03/03/21 03/03/21 12:52 14:59 16:00 Temperature 36.2 C L 36.5 C 36.5 C Heart Rate 76 74 76 Respiratory 16 16 16 Rate Blood Pressure 106/60 110/60 124/77 O2 Saturation 98 98 96 Oxygen O2 Source Room air - Labs Labs: Laboratory Tests 03/03/21 03/03/21 03/03/21 13:20 13:24 13:24 WBC 15.7 H RBC 4.96 Hgb 14.4 Hct 44.0 MCV 88.7 MCH 29.0 MCHC 32.7 RDW 14.2 Plt Count 231 MPV 8.9 Neut # (Auto) 13.5 H Lymph # (Auto) 0.8 L Graves # (Auto) 1.1 H Eos # (Auto) 0.3 Baso # (Auto) 0.1 Absolute Nucleated RBC 0.00 Nucleated RBC % 0.0 Sodium 138 Potassium 3.6 Chloride 99 L Carbon Dioxide 28 Anion Gap 11.0 BUN 29 H Creatinine 1.0 Estimated GFR (MDRD) 71 L Glucose 124 H Calcium 9.7 Total Bilirubin 1.0 AST 21 ALT 18 Alkaline Phosphatase 90 Total Protein 8.0 Albumin 4.7 Globulin 3.3 Albumin/Globulin Ratio 1.4 Lipase 182 H Urine Color YELLOW Urine Clarity CLEAR Urine pH 6.5 Ur Specific [place] 1.025 Urine Protein TRACE Urine Glucose (UA) NEGATIVE Urine Ketones TRACE Urine Occult Blood NEGATIVE Urine Nitrite NEGATIVE Urine Bilirubin NEGATIVE Urine Urobilinogen 1 (NORMAL) Ur Leukocyte Esterase NEGATIVE Ur Microscopic Review NOT INDICATED Urine Culture Comments NOT INDICATED PD MEDICAL DECISION MAKING - ED course Complexity details: reviewed results, re-evaluated patient, considered differential, d/w patient ED course: Patient was treated with IV fluids and Zofran, and worked up with labs, which were unremarkable. The patient is already starting to feel better at the time of my evaluation. We discussed that he should follow-up with his primary care physician to discuss getting set up for scope. In the meantime, he may keep Zofran on hand in case the symptoms recur at some point. At this point in time, the patient has had unusually frequent episodes of vomiting, and yet far enough apart that makes the likelihood of relation to gastritis/ulcer, or malignancy much less likely. As such, and additionally, in consideration of the patient's benign abdominal exam, I do not feel that imaging is emergently indicated in the emergency department. Additionally, it is unlikely to yield any further helpful information, and scope would most likely be more helpful. We have discussed home management of symptoms, as well as the usual indications for return. Departure - Departure Disposition: 01 Home, Self Care Clinical Impression: Vomiting Qualifiers: Vomiting type: bilious vomiting Nausea presence: with nausea Qualified Code(s): R11.14 - Bilious vomiting Condition: Stable Instructions: ED Nausea Vomiting Prescriptions: Ondansetron Odt [Zofran] 4 mg TL Q6H PRN #10 tablet PRN Reason: Nausea / Vomiting Comments: Your labs look great. Is not clear why you have been having the episodes of short-lived nausea and vomiting, but This would most likely be best sorted out by endoscopy initially. Please follow-up with your primary care physician soon as possible to get set up this. You may take the oral dissolving Zofran as needed for further episodes of nausea.
[2021-03-03 16:05] VITALS: BP 124/77
== END 2021-03-03 16:37 | disposition home or self-care (01) ==
LOC: ED 12:45
DX: R11.14 Bilious vomiting (principal); I10 Essential (primary) hypertension; I48.91 Unspecified atrial fibrillation; Z79.01 Long term (current) use of anticoagulants; E11.9 Type 2 diabetes mellitus without complications; Z79.84 Long term (current) use of oral hypoglycemic drugs
CPT/HCPCS: 36415; 80053; 81001; 81003; 83690; 85025; 87086; 96374; 99284

== ENCOUNTER 2021-11-04 08:00 | Outpatient (CLI) | payer MEDICARE ==
[2021-11-04 17:07] LABS: BASOPHILS # (AUTO) 0.1 10^3/uL (0.0-0.1); BASOPHILS % (AUTO) 0.8 %; EOSINOPHILS # (AUTO) 0.6 10^3/uL (0.0-0.7); EOSINOPHILS % (AUTO) 7.9 %; HCT - HEMATOCRIT 32.9 % (42.0-52.0); HGB - HEMOGLOBIN 10.1 g/dL (14.0-18.0); LYMPHOCYTES # (AUTO) 0.9 10^3/uL (1.5-3.5); LYMPHOCYTES % (AUTO) 11.5 %; MEAN CORPUSCULAR HEMOGLOBIN 27.8 pg (27.0-31.0); MEAN CORPUSCULAR HGB CONC 30.7 g/dL (32.0-36.0); MEAN CORPUSCULAR VOLUME 90.6 fL (80.0-94.0); MEAN PLATELET VOLUME 9.3 fL (7.4-11.4); MONOCYTES # (AUTO) 0.4 10^3/uL (0.0-1.0); MONOCYTES % (AUTO) 5.6 %; NEUTROPHILS # (AUTO) 5.5 10^3/uL (1.5-6.6); NEUTROPHILS % (AUTO) 73.8 %; PLT - PLATELET COUNT 270 10^3/uL (130-450); RED BLOOD COUNT 3.63 10^6/uL (4.70-6.10); RED CELL DISTRIBUTION WIDTH 15.3 % (12.0-15.0); WHITE BLOOD COUNT 7.5 x10^3/uL (4.8-10.8)
[2021-11-04 17:22] LABS: ALBUMIN 3.2 g/dL (3.2-5.5); BILIRUBIN,TOTAL 0.7 mg/dL (0.2-1.0); CALCIUM 9.1 mg/dL (8.5-10.3); CREATININE 0.7 mg/dL (0.6-1.2); CRP - C-REACTIVE PROTEIN 1.7 mg/dL (0-1.0); POTASSIUM 3.8 mmol/L (3.5-5.0); TOTAL PROTEIN 6.3 g/dL (6.7-8.2)
== END 2021-11-04 23:59 | disposition home or self-care (01) ==
LOC: LAB.R 08:00
PROVIDERS: ATTEND Internal Medicine Infectious Disease
DX: T84.51XA Infection and inflammatory reaction due to internal right hip prosthesis, initial encounter (principal); B96.5 Pseudomonas (aeruginosa) (mallei) (pseudomallei) as the cause of diseases classified elsewhere
CPT/HCPCS: 80053; 85025; 86140

== ENCOUNTER 2021-11-11 08:00 | Outpatient (CLI) | payer MEDICARE ==
[2021-11-11 17:15] LABS: BASOPHILS % (AUTO) 0.7 %; EOSINOPHILS # (AUTO) 0.4 10^3/uL (0.0-0.7); EOSINOPHILS % (AUTO) 6.9 %; HCT - HEMATOCRIT 31.9 % (42.0-52.0); HGB - HEMOGLOBIN 9.9 g/dL (14.0-18.0); LYMPHOCYTES # (AUTO) 1.3 10^3/uL (1.5-3.5); LYMPHOCYTES % (AUTO) 21.1 %; MEAN CORPUSCULAR HEMOGLOBIN 27.8 pg (27.0-31.0); MEAN CORPUSCULAR VOLUME 89.6 fL (80.0-94.0); MONOCYTES # (AUTO) 0.3 10^3/uL (0.0-1.0); MONOCYTES % (AUTO) 4.9 %; NEUTROPHILS # (AUTO) 3.9 10^3/uL (1.5-6.6); NEUTROPHILS % (AUTO) 66.1 %; RED BLOOD COUNT 3.56 10^6/uL (4.70-6.10); RED CELL DISTRIBUTION WIDTH 14.5 % (12.0-15.0); WHITE BLOOD COUNT 5.9 x10^3/uL (4.8-10.8)
[2021-11-11 17:17] LABS: SLIDE REVIEW? Indicated
[2021-11-11 18:01] LABS: PLATELET ESTIMATE, MANUAL NORMAL (130-450,000) (NORMAL); PLATELET MORPHOLOGY PLATELET CLUMPING (NORMAL)
[2021-11-11 18:02] LABS: RBC MORPHOLOGY (MULTIPLE) NORMAL APPEARANCE (NORMAL); WBC MORPHOLOGY (MULTIPLE) NORMAL APPEARANCE (NORMAL)
[2021-11-11 18:56] LABS: ALBUMIN 3.1 g/dL (3.2-5.5); ALBUMIN/GLOBULIN RATIO 0.9 (1.0-2.2); BILIRUBIN,TOTAL 0.4 mg/dL (0.2-1.0); CALCIUM 9.1 mg/dL (8.5-10.3); CREATININE 0.7 mg/dL (0.6-1.2); POTASSIUM 3.5 mmol/L (3.5-5.0); TOTAL PROTEIN 6.5 g/dL (6.7-8.2)
== END 2021-11-11 08:01 | disposition home or self-care (01) ==
LOC: LAB.R 08:00
PROVIDERS: ATTEND Internal Medicine Infectious Disease
DX: T84.51XA Infection and inflammatory reaction due to internal right hip prosthesis, initial encounter (principal); B96.5 Pseudomonas (aeruginosa) (mallei) (pseudomallei) as the cause of diseases classified elsewhere
CPT/HCPCS: 80053; 85025; 86140

== ENCOUNTER 2021-11-16 14:52 | Emergency (ER) | payer MEDICARE ==
--- NOTE | 2021-11-16 15:45 | ED Physician Documentation ---
History of Present Illness - Stated complaint Stated Complaint: PICC LINE LEAK - Chief complaint Chief Complaint: General - History obtained from History obtained from: Patient, Family - History of Present Illness Timing: Today - Additonal information Additional information: 85-year-old male with a history of atrial fibrillation hypertension congestive heart failure s/p CABG and pacer is on Xarelto for atrial fibrillation and he has a porcine valve in place. He has had a recent surgery to his right hip and there was some infection in the skin portion a second operation was done to examine and clean the area out and the patient is on 6 weeks of IV antibiotics through a PICC line. He had his procedure done about 2 weeks ago and he has graduated from a walker to a cane and he went to his SNAPCARD service yesterday in [place] and came back from [place] today using his cane and he is developed some bleeding from the PICC line site. He is worried that he will not be able to use his PICC line today. Review of Systems Constitutional: denies: Fever, Myalgias Nose: denies: Congestion Throat: denies: Sore throat Cardiac: denies: Chest pain / pressure Respiratory: denies: Dyspnea, Cough GI: denies: Vomiting, Diarrhea Skin: denies: Rash Musculoskeletal: denies: Neck pain, Back pain, Extremity pain PD PAST MEDICAL HISTORY - Past Medical History Cardiovascular: Hypertension, Atrial flutter Endocrine/Autoimmune: Type 2 diabetes : Indwelling catheter - Past Surgical History Past Surgical History: Yes Cardiovascular: Pacemaker, Other - Present Medications Home Medications: Ambulatory Orders Medication Instructions Recorded Confirmed Fluticasone [Flonase] 50 mcg INH DAILY 11/18/14 09/09/17 Warfarin [Coumadin] 10 mg PO DAILY 11/18/14 09/09/17 hydroCHLOROthiazide 25 mg PO DAILY 11/18/14 09/09/17 [Hydrochlorothiazide] lisinopriL [Lisinopril] 20 mg PO DAILY 11/18/14 09/09/17 Aspirin 81 mg PO DAILY 02/03/15 09/09/17 Atorvastatin [Lipitor] 20 mg PO DAILY 02/03/15 09/09/17 Metoprolol Tartrate 37.5 mg PO BID 02/03/15 09/09/17 metFORMIN [Glucophage] tab PO BID 09/09/17 Amoxicillin 500 mg PO 09/12/17 09/12/17 Docusate Sodium 250Mg Capsule 250 mg PO DAILY PRN #20 capsule 09/12/17 [Colace 250Mg Capsule] Hydrocodone/Acetaminophen 1 - 2 each PO Q6H PRN #14 tablet 09/12/17 [Hydrocodon-Acetaminophen 5-325] Opium/Belladonn 60/16.2MG Supp [B 1 each [place] Q6H PRN #14 supp 09/12/17 & O Supp] Oxybutynin Chloride [Ditropan Xl] 10 mg PO 09/12/17 polyethylene glycoL 3350 [Miralax] 17 gm PO DAILY PRN #1 bottle 09/12/17 Ondansetron Odt [Zofran] 4 mg TL Q6H PRN #10 tablet 03/03/21 - Allergies Allergies/Adverse Reactions: Allergies Allergy/AdvReac Type Severity Reaction Status Date / Time No Known Drug Allergies Allergy Verified 11/16/21 15:03 - Social History Does the pt smoke?: No Smoking Status: Never smoker Does the pt drink ETOH?: Yes Does the pt have substance abuse?: Yes - Immunizations Immunizations are current?: Yes PD ED PE NORMAL - Vitals Vital signs reviewed: Yes (hypertensive ) - General General: Alert and oriented X 3, No acute distress, Well developed/nourished - HEENT HEENT: Atraumatic, PERRL, EOMI - Respiratory Respiratory: No respiratory distress - Derm Derm: Normal color, Warm and dry, No rash - Extremities Extremities: No deformity, No edema, Other (There is some saturation of the antibiotic disc around the insertion of the PICC line site over the left arm and this is still contained under the OpSite. 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 Bleeding at the insertion site of the PICC line is now controlled and the RN has replaced the dressing and ensured patency. The patient is given the go ahead for use of he PICC line. Departure - Departure Disposition: 01 Home, Self Care Clinical Impression: Bleeding from PICC line Qualifiers: Encounter type: initial encounter Qualified Code(s): T82.838A - Hemorrhage due to vascular prosthetic devices, implants and grafts, initial encounter Condition: Stable Instructions: ED PICC Line Care Follow-Up: DONNA CABALLERO MD [Primary Care Provider] - Comments: Earle, today it looks like the bleeding around your PICC line insertion is due to your being on Xarelto. It is likely you had some minor trauma to the area. This now appears to be working normally and it is okay to begin using it.
[2021-11-16 15:57] VITALS: BP 140/76
== END 2021-11-16 15:57 | disposition home or self-care (01) ==
LOC: ED 14:52
DX: T82.838A Hemorrhage due to vascular prosthetic devices, implants and grafts, initial encounter (principal)
CPT/HCPCS: 99282

== ENCOUNTER 2021-11-18 13:41 | Outpatient (CLI) | payer MEDICARE ==
[2021-11-18 13:52] LABS: BASOPHILS # (AUTO) 0.1 10^3/uL (0.0-0.1); BASOPHILS % (AUTO) 0.7 %; EOSINOPHILS # (AUTO) 0.3 10^3/uL (0.0-0.7); EOSINOPHILS % (AUTO) 4.2 %; HCT - HEMATOCRIT 32.7 % (42.0-52.0); HGB - HEMOGLOBIN 10.1 g/dL (14.0-18.0); LYMPHOCYTES # (AUTO) 1.2 10^3/uL (1.5-3.5); LYMPHOCYTES % (AUTO) 17.8 %; MEAN CORPUSCULAR HGB CONC 30.9 g/dL (32.0-36.0); MEAN CORPUSCULAR VOLUME 87.4 fL (80.0-94.0); MEAN PLATELET VOLUME 9.5 fL (7.4-11.4); MONOCYTES # (AUTO) 0.5 10^3/uL (0.0-1.0); MONOCYTES % (AUTO) 7.2 %; NEUTROPHILS # (AUTO) 4.9 10^3/uL (1.5-6.6); NEUTROPHILS % (AUTO) 69.8 %; PLT - PLATELET COUNT 267 10^3/uL (130-450); RED BLOOD COUNT 3.74 10^6/uL (4.70-6.10); RED CELL DISTRIBUTION WIDTH 14.4 % (12.0-15.0)
[2021-11-18 15:25] LABS: ALBUMIN 3.3 g/dL (3.2-5.5); ALBUMIN/GLOBULIN RATIO 1.1 (1.0-2.2); ALKALINE PHOSPHATASE 123 IU/L (42-121); ALT ALANINE AMINOTRANSFERASE 27 IU/L (10-60); AST ASPARTATE AMINOTRANSFERASE 23 IU/L (10-42); BILIRUBIN,TOTAL 0.7 mg/dL (0.2-1.0); BUN - BLOOD UREA NITROGEN 18 mg/dL (6-20); CREATININE 0.6 mg/dL (0.6-1.2); GFR - MDRD 129 (>89); TOTAL PROTEIN 6.2 g/dL (6.7-8.2)
[2021-11-18 15:27] LABS: CALCIUM 9.5 mg/dL (8.5-10.3); CARBON DIOXIDE - CO2 28 mmol/L (21-32); CHLORIDE 100 mmol/L (101-111); GLUCOSE 128 mg/dL (70-100); POTASSIUM 3.9 mmol/L (3.5-5.0); SODIUM 138 mmol/L (135-145)
[2021-11-18 16:31] LABS: CRP - C-REACTIVE PROTEIN < 1.0 mg/dL (0-1.0)
== END 2021-11-18 13:42 | disposition home or self-care (01) ==
LOC: LAB.R 13:41
PROVIDERS: ATTEND Internal Medicine Infectious Disease
DX: B96.5 Pseudomonas (aeruginosa) (mallei) (pseudomallei) as the cause of diseases classified elsewhere (principal)
CPT/HCPCS: 80053; 85025; 86140

== ENCOUNTER 2021-11-25 11:15 | Outpatient (CLI) | payer MEDICARE ==
[2021-11-25 17:16] LABS: BASOPHILS # (AUTO) 0.1 10^3/uL (0.0-0.1); BASOPHILS % (AUTO) 1.1 %; EOSINOPHILS # (AUTO) 0.3 10^3/uL (0.0-0.7); EOSINOPHILS % (AUTO) 4.2 %; HGB - HEMOGLOBIN 10.3 g/dL (14.0-18.0); LYMPHOCYTES # (AUTO) 1.3 10^3/uL (1.5-3.5); LYMPHOCYTES % (AUTO) 17.4 %; MEAN CORPUSCULAR HEMOGLOBIN 26.8 pg (27.0-31.0); MEAN CORPUSCULAR HGB CONC 30.3 g/dL (32.0-36.0); MEAN CORPUSCULAR VOLUME 88.3 fL (80.0-94.0); MEAN PLATELET VOLUME 10.1 fL (7.4-11.4); MONOCYTES # (AUTO) 0.6 10^3/uL (0.0-1.0); MONOCYTES % (AUTO) 7.9 %; NEUTROPHILS % (AUTO) 69.1 %; PLT - PLATELET COUNT 212 10^3/uL (130-450); RED BLOOD COUNT 3.85 10^6/uL (4.70-6.10); RED CELL DISTRIBUTION WIDTH 14.6 % (12.0-15.0); WHITE BLOOD COUNT 7.2 x10^3/uL (4.8-10.8)
[2021-11-25 17:30] LABS: ALBUMIN 3.5 g/dL (3.2-5.5); ALBUMIN/GLOBULIN RATIO 1.1 (1.0-2.2); ALKALINE PHOSPHATASE 112 IU/L (42-121); ALT ALANINE AMINOTRANSFERASE 25 IU/L (10-60); AST ASPARTATE AMINOTRANSFERASE 28 IU/L (10-42); BILIRUBIN,TOTAL 0.5 mg/dL (0.2-1.0); BUN - BLOOD UREA NITROGEN 19 mg/dL (6-20); CALCIUM 9.6 mg/dL (8.5-10.3); CARBON DIOXIDE - CO2 26 mmol/L (21-32); CHLORIDE 99 mmol/L (101-111); CREATININE 0.8 mg/dL (0.6-1.2); GFR - MDRD 92 (>89); GLUCOSE 126 mg/dL (70-100); SODIUM 134 mmol/L (135-145); TOTAL PROTEIN 6.6 g/dL (6.7-8.2)
[2021-11-25 17:34] LABS: CRP - C-REACTIVE PROTEIN < 1.0 mg/dL (0-1.0)
== END 2021-11-25 23:59 | disposition home or self-care (01) ==
LOC: LAB.R 11:15
PROVIDERS: ATTEND Internal Medicine Infectious Disease
DX: B96.5 Pseudomonas (aeruginosa) (mallei) (pseudomallei) as the cause of diseases classified elsewhere (principal)
CPT/HCPCS: 80053; 85025; 86140

== ENCOUNTER 2021-12-02 12:20 | Outpatient (CLI) | payer MEDICARE ==
[2021-12-02 12:27] LABS: BASOPHILS # (AUTO) 0.1 10^3/uL (0.0-0.1); EOSINOPHILS # (AUTO) 0.4 10^3/uL (0.0-0.7); EOSINOPHILS % (AUTO) 5.7 %; HGB - HEMOGLOBIN 10.6 g/dL (14.0-18.0); LYMPHOCYTES # (AUTO) 1.2 10^3/uL (1.5-3.5); LYMPHOCYTES % (AUTO) 18.5 %; MEAN CORPUSCULAR HEMOGLOBIN 26.7 pg (27.0-31.0); MEAN CORPUSCULAR HGB CONC 31.2 g/dL (32.0-36.0); MEAN CORPUSCULAR VOLUME 85.6 fL (80.0-94.0); MONOCYTES # (AUTO) 0.5 10^3/uL (0.0-1.0); MONOCYTES % (AUTO) 8.5 %; NEUTROPHILS # (AUTO) 4.1 10^3/uL (1.5-6.6); PLT - PLATELET COUNT 188 10^3/uL (130-450); RED BLOOD COUNT 3.97 10^6/uL (4.70-6.10); RED CELL DISTRIBUTION WIDTH 14.4 % (12.0-15.0); WHITE BLOOD COUNT 6.3 x10^3/uL (4.8-10.8)
[2021-12-02 12:50] LABS: ALBUMIN 3.4 g/dL (3.2-5.5); ALKALINE PHOSPHATASE 104 IU/L (42-121); ALT ALANINE AMINOTRANSFERASE 24 IU/L (10-60); AST ASPARTATE AMINOTRANSFERASE 23 IU/L (10-42); BILIRUBIN,TOTAL 0.7 mg/dL (0.2-1.0); BUN - BLOOD UREA NITROGEN 17 mg/dL (6-20); CALCIUM 9.4 mg/dL (8.5-10.3); CARBON DIOXIDE - CO2 27 mmol/L (21-32); CHLORIDE 98 mmol/L (101-111); CREATININE 0.7 mg/dL (0.6-1.2); GFR - MDRD 108 (>89); GLUCOSE 151 mg/dL (70-100); POTASSIUM 3.2 mmol/L (3.5-5.0); SODIUM 134 mmol/L (135-145); TOTAL PROTEIN 6.7 g/dL (6.7-8.2)
[2021-12-02 12:54] LABS: CRP - C-REACTIVE PROTEIN < 1.0 mg/dL (0-1.0)
== END 2021-12-02 12:21 | disposition home or self-care (01) ==
LOC: LAB 12:20
PROVIDERS: ATTEND Internal Medicine Infectious Disease
DX: B96.5 Pseudomonas (aeruginosa) (mallei) (pseudomallei) as the cause of diseases classified elsewhere (principal)
CPT/HCPCS: 36415; 80053; 85025; 86140

== ENCOUNTER 2021-12-09 14:25 | Outpatient (CLI) | payer MEDICARE ==
[2021-12-09 14:35] LABS: BASOPHILS # (AUTO) 0.1 10^3/uL (0.0-0.1); BASOPHILS % (AUTO) 0.8 %; EOSINOPHILS # (AUTO) 0.3 10^3/uL (0.0-0.7); EOSINOPHILS % (AUTO) 4.6 %; HCT - HEMATOCRIT 33.7 % (42.0-52.0); HGB - HEMOGLOBIN 10.2 g/dL (14.0-18.0); LYMPHOCYTES # (AUTO) 1.1 10^3/uL (1.5-3.5); LYMPHOCYTES % (AUTO) 14.7 %; MEAN CORPUSCULAR HEMOGLOBIN 26.2 pg (27.0-31.0); MEAN CORPUSCULAR HGB CONC 30.3 g/dL (32.0-36.0); MEAN CORPUSCULAR VOLUME 86.4 fL (80.0-94.0); MEAN PLATELET VOLUME 9.8 fL (7.4-11.4); MONOCYTES # (AUTO) 0.6 10^3/uL (0.0-1.0); MONOCYTES % (AUTO) 8.1 %; NEUTROPHILS # (AUTO) 5.1 10^3/uL (1.5-6.6); NEUTROPHILS % (AUTO) 71.5 %; PLT - PLATELET COUNT 176 10^3/uL (130-450); RED CELL DISTRIBUTION WIDTH 14.6 % (12.0-15.0); WHITE BLOOD COUNT 7.1 x10^3/uL (4.8-10.8)
[2021-12-09 14:47] LABS: ALBUMIN 3.5 g/dL (3.2-5.5); ALBUMIN/GLOBULIN RATIO 1.1 (1.0-2.2); ALKALINE PHOSPHATASE 91 IU/L (42-121); ALT ALANINE AMINOTRANSFERASE 28 IU/L (10-60); AST ASPARTATE AMINOTRANSFERASE 23 IU/L (10-42); BILIRUBIN,TOTAL 0.5 mg/dL (0.2-1.0); BUN - BLOOD UREA NITROGEN 19 mg/dL (6-20); CALCIUM 9.5 mg/dL (8.5-10.3); CARBON DIOXIDE - CO2 27 mmol/L (21-32); CHLORIDE 100 mmol/L (101-111); CREATININE 0.7 mg/dL (0.6-1.2); GFR - MDRD 108 (>89); GLUCOSE 126 mg/dL (70-100); POTASSIUM 3.9 mmol/L (3.5-5.0); SODIUM 136 mmol/L (135-145); TOTAL PROTEIN 6.6 g/dL (6.7-8.2)
[2021-12-09 15:16] LABS: CRP - C-REACTIVE PROTEIN < 1.0 mg/dL (0-1.0)
== END 2021-12-09 14:26 | disposition home or self-care (01) ==
LOC: LAB.R 14:25
PROVIDERS: ATTEND Internal Medicine Infectious Disease
DX: B96.5 Pseudomonas (aeruginosa) (mallei) (pseudomallei) as the cause of diseases classified elsewhere (principal)
CPT/HCPCS: 80053; 85025; 86140

== ENCOUNTER 2021-12-11 10:04 | Outpatient (CLI) | payer MEDICARE ==
[2021-12-11 10:15] LABS: CALCIUM 9.7 mg/dL (8.5-10.3); CREATININE 0.8 mg/dL (0.6-1.2); POTASSIUM 3.6 mmol/L (3.5-5.0)
== END 2021-12-11 10:05 | disposition home or self-care (01) ==
LOC: LAB.R 10:04
PROVIDERS: ATTEND Internal Medicine Infectious Disease
DX: B96.5 Pseudomonas (aeruginosa) (mallei) (pseudomallei) as the cause of diseases classified elsewhere (principal)
CPT/HCPCS: 80048

== ENCOUNTER 2023-05-16 12:45 | Emergency (ER) | payer MEDICARE ==
[2023-05-16 12:58] VITALS: BP 129/76; O2SAT 97
--- NOTE | 2023-05-16 13:57 | ED Physician Documentation ---
PD HPI HEAD INJURY - Stated complaint Stated Complaint: GLF/HEAD INJ - Chief complaint Chief Complaint: Trauma Hd/Nk - History obtained from History obtained from: Patient, Family - History of Present Illness Mechanism of head injury: Fell Where head injury occurred: Home Quality of pain: No: Pain, Throbbing, Aching, Dull Associated symptoms: No: LOC, AMS, Amnesia, Nausea / vomiting, Neck pain, Paresthesias, Seizures Symptoms worsen with: No: Palpation, Movement, Light, Noise Contributing factors: Anticoagulated - Additional information Additional information: This is a very nice 87-year-old gentleman who is on Xarelto who presents after a ground-level fall. The patient states he has trouble with his legs frequently "giving out" on him and normally uses a walker or cane. He was walking in the kitchen however which is quite small and therefore he typically just holds on to sayings and he states his legs gave out from under him and he fell. He landed onto his left shoulder and then hit either the side or the back of his head on the ground. His states he was in a bit of a corner between a cabinet and wall. He thinks he was dazed for a moment but denies loss of consciousness and was there immediately to help him up. His behavior has been normal since then, he has had no new confusion or alteration in mental status, no vomiting no ataxia. He denies any prodromal symptoms prior to the fall such as dizziness weakness chest pain or difficulty breathing and he denies any focal numbness or weakness at this time. He has a mild headache, no neck pain and denies any injury to the shoulder or hip or other extremities. Review of Systems Constitutional: reports: Reviewed and negative Eyes: reports: Reviewed and negative Ears: reports: Reviewed and negative Nose: reports: Reviewed and negative Cardiac: reports: Reviewed and negative Respiratory: reports: Reviewed and negative GI: reports: Reviewed and negative : reports: Reviewed and negative Skin: reports: Reviewed and negative Musculoskeletal: reports: Extremity swelling (Chronic), Reviewed and negative Neurologic: reports: Headache, Head injury. denies: Generalized weakness, Focal weakness, Numbness, Difficulty speaking, Near syncope, Syncope, Seizure, Confused, Altered mental status, Unresponsive PD PAST MEDICAL HISTORY - Past Medical History Past Medical History: Yes Cardiovascular: Hypertension, Atrial flutter Endocrine/Autoimmune: Type 2 diabetes : Indwelling catheter - Past Surgical History Past Surgical History: Yes Cardiovascular: Pacemaker, Other - Present Medications Home Medications: Ambulatory Orders Medication Instructions Recorded Confirmed Fluticasone [Flonase] 50 mcg INH DAILY 11/18/14 09/09/17 Warfarin [Coumadin] 10 mg PO DAILY 11/18/14 09/09/17 hydroCHLOROthiazide 25 mg PO DAILY 11/18/14 09/09/17 [Hydrochlorothiazide] lisinopriL [Lisinopril] 20 mg PO DAILY 11/18/14 09/09/17 Aspirin 81 mg PO DAILY 02/03/15 09/09/17 Atorvastatin [Lipitor] 20 mg PO DAILY 02/03/15 09/09/17 Metoprolol Tartrate 37.5 mg PO BID 02/03/15 09/09/17 metFORMIN [Glucophage] tab PO BID 09/09/17 Amoxicillin 500 mg PO 09/12/17 09/12/17 Docusate Sodium 250Mg Capsule 250 mg PO DAILY PRN #20 capsule 09/12/17 [Colace 250Mg Capsule] Hydrocodone/Acetaminophen 1 - 2 each PO Q6H PRN #14 tablet 09/12/17 [Hydrocodon-Acetaminophen 5-325] Opium/Belladonn 60/16.2MG Supp [B 1 each [place] Q6H PRN #14 supp 09/12/17 & O Supp] oxyBUTYnin chloride [Ditropan Xl] 10 mg PO 09/12/17 polyethylene glycoL 3350(BULK) 17 gm PO DAILY PRN #1 bottle 09/12/17 [Miralax] Ondansetron Odt [Zofran] 4 mg TL Q6H PRN #10 tablet 03/03/21 - Allergies Allergies/Adverse Reactions: Allergies Allergy/AdvReac Type Severity Reaction Status Date / Time No Known Drug Allergies Allergy Verified 05/16/23 12:47 - Social History Does the pt smoke?: No Smoking Status: Never smoker Does the pt drink ETOH?: Yes Does the pt have substance abuse?: Yes - Immunizations Immunizations are current?: Yes PD ED PE NORMAL - Vitals Vital signs reviewed: Yes - General General: Alert and oriented X 3, No acute distress, Well developed/nourished - HEENT HEENT: Atraumatic (No scalp contusions or hematomas or abrasions.), PERRL, EOMI, Moist mucous membranes - Neck Neck: Supple, no meningeal sign, No bony TTP, C-Spine cleared by NEXUS criteria - Back Back: No CVA TTP, No spinal TTP - Derm Derm: Normal color, Warm and dry, No rash - Extremities Extremities: Other (Chronic lower extremity edema left leg greater than right) - Neuro Neuro: Alert and oriented X 3, No motor deficit, No sensory deficit, Normal speech Eye Opening: Spontaneous Motor: Obeys Commands Verbal: Oriented GCS Score: 15 - Psych Psych: Normal mood, Normal affect Results - Vitals Vitals: Vital Signs - 24 hr 05/16/23 12:47 Temperature 36.5 C Heart Rate 72 Respiratory 18 Rate Blood Pressure 129/76 O2 Saturation 97 Oxygen O2 Source Room air - Rads (name of study) No standard instances Relevant Findings:: Final report received PD Medical Decision Making - ED course Complexity details: reviewed results, re-evaluated patient, considered differential, d/w patient, d/w family ED course: Very nice 89-year-old gentleman who presented after a gram of the flies extremity HPI. He did hit his head in the fall and landed somewhat on the left side but has not no reproducible extremity pain on the left side or elsewhere, no hip pain or pelvis pain, no shoulder or neck or back pain. He had mild head ache but no neurologic changes. We obtained a CT of his head as he is on Eliquis and he fell, and the CT is reassuring as listed above, no signs of acute bleeding. Patient has no change in his mental status and has been awake alert with reassuring neuro exam for the duration of his stay. I discussed the CT findings with patient and his , I strongly urged him to utilize an assistive device at all times when walking due to his history of leg weakness and he will continue follow-up with his PCP for this as well as physical therapy. Return precautions reviewed if any new or worsening symptoms. Departure - Departure Disposition: 01 Home, Self Care Clinical Impression: Closed head injury Qualifiers: Encounter type: initial encounter Qualified Code(s): S09.90XA - Unspecified injury of head, initial encounter Condition: Good Instructions: ED Head Injury Closed Comments: You CT scan does not show any signs of acute bleeding or injury. Please utilize your assistive devices at all times when walking to reduce the chance of falls. Continue working with your primary doctor and physical therapy Forms: PCP List
--- NOTE | 2023-05-16 14:00 | CT Report ---
PROCEDURE: HEAD WO INDICATIONS: fall, on eliquis TECHNIQUE: Noncontrast 4.5 mm thick angled axial sections acquired from the foramen magnum to the vertex. For r adiation dose reduction, the following was used: automated exposure control, adjustment of mA and/or kV according to patient size. COMPARISON: None FINDINGS: Image quality: Excellent. CSF spaces: Basal cisterns are patent. No extra-axial fluid collections. The ventricles are symmet ophelia in size and shape. Brain: No intracranial bleeds or masses. 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 There is cerebral volume loss for age, with resultant ventricular and sulcal prominence. There are periven tricular and deep white matter chronic small vessel ischemic changes. There is intracranial internal carotid artery atherosclerosis. Skull and face: Calvarium and visualized facial bones appear intact, without suspicious lesions. Sinuses: Visualized sinuses and mastoids are clear. IMPRESSION: 1. No CT evidence of acute intracranial abnormalities. 2. 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 Age-related volume loss and moderate white matter solar electric practitioner lopez small vessel ischemic changes. Reviewed by: Donnie Price MD on 05/16/2023 1:59 PM PDT Approved by: Donnie Price MD on 05/16/2023 1:59 PM PDT Station ID: [id number]
== END 2023-05-16 14:24 | disposition home or self-care (01) ==
LOC: ED 12:45
DX: S09.90XA Unspecified injury of head, initial encounter (principal); W18.39XA Other fall on same level, initial encounter; Y93.01 Activity, walking, marching and hiking; Y92.000 Kitchen of unspecified non-institutional (private) residence as the place of occurrence of the external cause; R29.898 Other symptoms and signs involving the musculoskeletal system
CPT/HCPCS: 36415; 99283; 99284

== ENCOUNTER 2023-08-10 07:00 | Outpatient (CLI) | payer MEDICARE ==
--- NOTE | 2023-08-10 14:38 | XRAY Report ---
PROCEDURE: Chest 2V INDICATIONS: CHEST CONGESTION TECHNIQUE: 2 views of the chest were acquired. COMPARISON: 02/03/2015 FINDINGS: Surgical changes and devices: Right-sided pacer. Median sternotomy. Lungs and pleura: No pleural effusions or pneumothorax. Mild patchy right perihilar opacity. Mediastinum: Mediastinal contours appear normal. Heart size is enlarged. Bones and chest wall: No suspicious bony lesions. Overlying soft tissues appear unremarkable. IMPRESSION: Right perihilar pneumonia. Follow-up PA and lateral chest x-rays or chest CT is recommended to ensure resolution, and to exclude underlying neoplasm. Reviewed by: Vernell Olson MD on 08/10/2023 2:37 PM PST Approved by: Vernell Olson MD on 08/10/2023 2:37 PM PST Station ID: [id number]
== END 2023-08-10 23:59 | disposition home or self-care (01) ==
LOC: DI.S 07:00
PROVIDERS: ATTEND Physician Assistant Medical
DX: J18.9 Pneumonia, unspecified organism (principal)

== ENCOUNTER 2023-08-23 13:18 | Emergency (ER) | payer MEDICARE ==
--- NOTE | 2023-08-23 13:52 | ED Physician Documentation ---
PD HPI FOCAL NEURO - Stated complaint Stated Complaint: LT LEG WOUND, RT LEG WEAKNESS - Chief complaint Chief Complaint: Neuro - History obtained from History obtained from: Patient, Family - History of Present Illness Timing - onset: Yesterday Timing - duration: Hours (16) Timing - details: Gradual onset Severity of deficit: Mild Weakness: Leg, Foot, Right Numbness: No: Face, Arm, Hand, Leg, Foot, Right, Left Associated symptoms: No: Headache, Nausea / vomiting, Seizure Contributing factors: positive: Anticoagulated, Atrial fibrillation Baseline status: positive: A&OX3, ambulatory, indep - Additional information Additional information: 87-year-old male presents to the emergency department stating that he had weakness in the right leg that started yesterday. He states is about 90% improved today. No difficulty speaking, swallowing. No other weakness. Denies any numbness or tingling. Does have neuropathy in both of his feet. 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 He has been having pain in these for some time. No fevers. No redness. No drainage. Is currently on doxycycline for this. Has not had any strokelike symptoms before. No chest pain. No shortness of breath. No recent illnesses. No falls. No head trauma. No headache. No seizure activity. Review of Systems Respiratory: denies: Cough GI: denies: Nausea, Vomiting, Diarrhea, Hematemesis, Bloody / black stool : denies: Dysuria Skin: denies: Rash Musculoskeletal: denies: Neck pain, Back pain Neurologic: denies: Headache PD PAST MEDICAL HISTORY - Past Medical History Past Medical History: Yes Cardiovascular: Hypertension, Atrial flutter Endocrine/Autoimmune: Type 2 diabetes : Indwelling catheter - Past Surgical History Past Surgical History: Yes Cardiovascular: Pacemaker, Other - Present Medications Home Medications: Ambulatory Orders Medication Instructions Recorded Confirmed Fluticasone [Flonase] 50 mcg INH DAILY 11/18/14 09/09/17 Warfarin [Coumadin] 10 mg PO DAILY 11/18/14 09/09/17 hydroCHLOROthiazide 25 mg PO DAILY 11/18/14 09/09/17 [Hydrochlorothiazide] lisinopriL [Lisinopril] 20 mg PO DAILY 11/18/14 09/09/17 Aspirin 81 mg PO DAILY 02/03/15 09/09/17 Atorvastatin [Lipitor] 20 mg PO DAILY 02/03/15 09/09/17 Metoprolol Tartrate 37.5 mg PO BID 02/03/15 09/09/17 metFORMIN [Glucophage] tab PO BID 09/09/17 Amoxicillin 500 mg PO 09/12/17 09/12/17 Docusate Sodium 250Mg Capsule 250 mg PO DAILY PRN #20 capsule 09/12/17 [Colace 250Mg Capsule] Hydrocodone/Acetaminophen 1 - 2 each PO Q6H PRN #14 tablet 09/12/17 [Hydrocodon-Acetaminophen 5-325] Opium/Belladonn 60/16.2MG Supp [B 1 each MO Q6H PRN #14 supp 09/12/17 & O Supp] oxyBUTYnin chloride [Ditropan Xl] 10 mg PO 09/12/17 polyethylene glycoL 3350(BULK) 17 gm PO DAILY PRN #1 bottle 09/12/17 [Miralax] Ondansetron Odt [Zofran] 4 mg TL Q6H PRN #10 tablet 03/03/21 - Allergies Allergies/Adverse Reactions: Allergies Allergy/AdvReac Type Severity Reaction Status Date / Time No Known Drug Allergies Allergy Verified 08/23/23 13:23 - Social History Does the pt smoke?: No Smoking Status: Never smoker Does the pt drink ETOH?: Yes Does the pt have substance abuse?: Yes - Immunizations Immunizations are current?: Yes PD ED PE NORMAL - Vitals Vital signs reviewed: Yes - General General: Alert and oriented X 3, No acute distress - HEENT HEENT: Moist mucous membranes - Neck Neck: Supple, no meningeal sign - Cardiac Cardiac: RRR, Strong equal pulses - Respiratory Respiratory: No respiratory distress, Clear bilaterally - Back Back: No CVA TTP, No spinal TTP - Derm Derm: Warm and dry - Extremities Extremities: Other (Chronic nonhealing wounds to the left lower extremity. No purulence. No erythema.) - Neuro Neuro: Alert and oriented X 3, tv host 2-12 intact, No sensory deficit, Normal speech Eye Opening: Spontaneous Motor: Obeys Commands Verbal: Oriented GCS Score: 15 - Psych Psych: Normal mood, Normal affect NIHSS - Time Time: 13:50 - Level of Consciousness Level of consciousness: (0) Alert, Keenly responsive LOC Questions: (0) Answers both Q's correct LOC Commands: (0) Performs both correctly - Gaze Best Gaze: (0) Normal - Visual Visual: (0) No loss - Facial Palsy Facial Palsy: (0) Normal, symmetrical movement - Motor Arms (both separate) Motor Arm (right): (0) No drift Motor Arm (left): (0) No drift - Motor Legs (both separate) Motor Leg (right): (2) Some effort against gravity Motor Leg (left): (0) No drift - Limb Ataxia Limb Ataxia: (0) Absent - Sensory Sensory: (0) Normal - Best Language Best Language: (0) No aphasia - Dysarthria Dysarthria: (0) Normal - Extinction and Inattention (formally neg Extinction and inattention: (0) No abnormality - Total Score/Results Total Score/Result: 2 Results - Vitals Vitals: Vital Signs - 24 hr 08/23/23 08/23/23 08/23/23 13:23 13:28 15:28 Temperature 36.8 C Heart Rate 70 70 70 Respiratory 16 18 19 Rate Blood Pressure 100/52 L 99/65 120/82 H O2 Saturation 98 98 98 08/23/23 08/23/23 17:00 19:00 Temperature Heart Rate 70 70 Respiratory 20 20 Rate Blood Pressure 124/86 H 136/82 H O2 Saturation 97 99 Oxygen O2 Source Room air - EKG (time done) 1858 EKG releavant findings:: EKG personally interpreted by author of this note. Relevant findings are: Rate: Rate (enter#) (70) Rhythm: Paced - Labs Labs: Microbiology 08/23/23 14:28 Wound Culture - Preliminary Left Lower Extremity - Wound Laboratory Tests 08/23/23 08/23/23 08/23/23 14:00 14:00 14:00 WBC 8.1 RBC 3.65 L Hgb 9.2 L Hct 32.3 L MCV 88.5 MCH 25.2 L MCHC 28.5 L RDW 19.0 H Plt Count 218 MPV 8.3 Neut # (Auto) 6.4 Lymph # (Auto) 0.9 L Sharp # (Auto) 0.6 Eos # (Auto) 0.2 Baso # (Auto) 0.1 Absolute Nucleated RBC 0.00 Nucleated RBC % 0.0 Manual Slide Review Indicated Platelet Estimate NORMAL (130-450,000) Platelet Morphology NORMAL APPEARANCE RBC Morph Micro Appear 1+ HYPOCHROMASIA ESR 44 H PT INR APTT Sodium 138 Potassium 4.1 Chloride 103 Carbon Dioxide 31 Anion Gap 4.0 L BUN 29 H Creatinine 1.1 Estimated GFR (MDRD) 64 L Glucose 155 H Calcium 9.7 Total Bilirubin 0.7 AST 17 ALT 20 Alkaline Phosphatase 168 H C-Reactive Protein 1.1 H Total Protein 6.8 Albumin 3.6 Globulin 3.2 Albumin/Globulin Ratio 1.1 Lipase 24 Urine Color Urine Clarity Urine pH Ur Specific Depue Urine Protein Urine Glucose (UA) Urine Ketones Urine Occult Blood Urine Nitrite Urine Bilirubin Urine Urobilinogen Ur Leukocyte Esterase Ur Microscopic Review Urine Culture Comments 08/23/23 08/23/23 14:00 14:28 WBC RBC Hgb Hct MCV MCH MCHC RDW Plt Count MPV Neut # (Auto) Lymph # (Auto) Sharp # (Auto) Eos # (Auto) Baso # (Auto) Absolute Nucleated RBC Nucleated RBC % Manual Slide Review Platelet Estimate Platelet Morphology RBC Morph Micro Appear ESR PT 24.9 H INR 2.4 H APTT 50.8 H Sodium Potassium Chloride Carbon Dioxide Anion Gap BUN Creatinine Estimated GFR (MDRD) Glucose Calcium Total Bilirubin AST ALT Alkaline Phosphatase C-Reactive Protein Total Protein Albumin Globulin Albumin/Globulin Ratio Lipase Urine Color YELLOW Urine Clarity CLEAR Urine pH 5.5 Ur Specific Depue 1.010 Urine Protein NEGATIVE Urine Glucose (UA) >=1000 H Urine Ketones NEGATIVE Urine Occult Blood NEGATIVE Urine Nitrite NEGATIVE Urine Bilirubin NEGATIVE Urine Urobilinogen 0.2 (NORMAL) Ur Leukocyte Esterase NEGATIVE Ur Microscopic Review NOT INDICATED Urine Culture Comments NOT INDICATED - Rads (name of study) CT angiogram head and neck Relevant Findings:: Final report received, See rad report CT head Relevant Findings:: Final report received, See rad report Left tib-fib x-ray Relevant Findings:: Final report received, See rad report PD Medical Decision Making - ED course Complexity details: reviewed results, re-evaluated patient, considered differential, d/w patient, d/w family, d/w multi site leasing consultant ED course: Patient's right leg weakness resolved while in the emergency department. No acute findings on CT angiogram of the head and neck. No acute findings on noncontrast head CT. No evidence of osteomyelitis on the left tib-fib x-ray. The diabetic wounds do not appear acutely infected. He is on Xarelto at home for A-fib. Has not missed any doses. He is unable to receive an MRI due to his defibrillator/pacemaker. Discussed the case with teleneurology, Dr. Hammer. Does not recommend adding aspirin or other antiplatelet agent. Patient is comfortable staying on his Xarelto. No indication to switch to another agent at this time. We will have him follow-up with his PCP for further care. Patient is fully asymptomatic at the time of discharge. Normal strength in the leg and ambulating normally. Patient counseled regarding signs and symptoms for which I believe and urgent re-evaluation would be necessary. Patient with good understanding of and agreement to plan and is comfortable going home at this time This document was made in part using voice recognition software. While efforts are made to proofread this document, sound alike and grammatical errors may occur. Departure - Departure Disposition: 01 Home, Self Care Clinical Impression: TIA (transient ischemic attack), Diabetic leg ulcer Condition: Good Instructions: ED Transient Ischemic Attack, ED Wound Care Follow-Up: DONNA CABALLERO MD [Primary Care Provider] - Comments: Please continue your current medications at home. I spoke with Dr. Hammer from [facility]. Your head CT does not show any acute abnormalities. Your CT angiogram of your head and neck do not show any acute abnormalities either, you do have slight narrowing of your carotid arteries but not enough to cause symptoms. It appears that you had what we call a transient ischemic attack, your symptoms appear to be resolved at this time. Please follow-up with your doctor for further care. I would not change the antibiotics on your foot ulcer at this time, but your doctor may want to consider an MRI of the area to evaluate for an infection into the bone. As we discussed, wound care at this facility may be difficult to get into due to a provider shortage. At [facility] may be easier to get into him I think he would benefit from hyperbaric oxygen therapy for the wounds. I would discuss with your doctor if there are other options for hyperbaric therapy in the region. Please return if he worsens including recurrent symptoms, fevers or new or worrisome symptoms. Forms: PCP List Discharge Date/Time: 08/23/23 19:25
[2023-08-23 14:07] LABS: BASOPHILS # (AUTO) 0.1 10^3/uL (0.0-0.1); BASOPHILS % (AUTO) 0.9 %; EOSINOPHILS # (AUTO) 0.2 10^3/uL (0.0-0.7); EOSINOPHILS % (AUTO) 2.1 %; HCT - HEMATOCRIT 32.3 % (42.0-52.0); HGB - HEMOGLOBIN 9.2 g/dL (14.0-18.0); LYMPHOCYTES # (AUTO) 0.9 10^3/uL (1.5-3.5); LYMPHOCYTES % (AUTO) 10.6 %; MEAN CORPUSCULAR HEMOGLOBIN 25.2 pg (27.0-31.0); MEAN CORPUSCULAR HGB CONC 28.5 g/dL (32.0-36.0); MEAN CORPUSCULAR VOLUME 88.5 fL (80.0-94.0); MEAN PLATELET VOLUME 8.3 fL (7.4-11.4); MONOCYTES # (AUTO) 0.6 10^3/uL (0.0-1.0); MONOCYTES % (AUTO) 7.5 %; NEUTROPHILS # (AUTO) 6.4 10^3/uL (1.5-6.6); NEUTROPHILS % (AUTO) 78.5 %; PLT - PLATELET COUNT 218 10^3/uL (130-450); RED BLOOD COUNT 3.65 10^6/uL (4.70-6.10); WHITE BLOOD COUNT 8.1 x10^3/uL (4.8-10.8)
[2023-08-23 14:11] LABS: SLIDE REVIEW? Indicated
[2023-08-23 14:18] LABS: PARTIAL THROMBOPLASTIN TIME 50.8 secs (24.9-33.3)
[2023-08-23 14:22] LABS: INR 2.4 (0.8-1.2); PT - PROTHROMBIN TIME 24.9 secs (9.9-12.6)
[2023-08-23 14:29] LABS: PLATELET ESTIMATE, MANUAL NORMAL (130-450,000) (NORMAL); PLATELET MORPHOLOGY NORMAL APPEARANCE (NORMAL); RBC MORPHOLOGY (MULTIPLE) 1+ HYPOCHROMASIA (NORMAL)
[2023-08-23 14:32] LABS: ALBUMIN 3.6 g/dL (3.2-5.5); ALBUMIN/GLOBULIN RATIO 1.1 (1.0-2.2); BILIRUBIN,TOTAL 0.7 mg/dL (0.2-1.0); CALCIUM 9.7 mg/dL (8.5-10.3); CREATININE 1.1 mg/dL (0.6-1.3); CRP - C-REACTIVE PROTEIN 1.1 mg/dL (<0.5); POTASSIUM 4.1 mmol/L (3.5-4.5); TOTAL PROTEIN 6.8 g/dL (6.4-8.9)
[2023-08-23 14:40] LABS: BILIRUBIN,URINE NEGATIVE (NEGATIVE); CLARITY,URINE CLEAR (CLEAR); GLUCOSE, URINE (UA) >=1000 mg/dL (NEGATIVE); KETONES,URINE (UA) NEGATIVE (NEGATIVE); LEUKOCYTE ESTERASE, URINE NEGATIVE (NEGATIVE); NITRITE,URINE NEGATIVE (NEGATIVE); OCCULT BLOOD,URINE NEGATIVE (NEGATIVE); PH,URINE 5.5 PH (5.0-7.5); PROTEIN,URINE NEGATIVE (NEGATIVE); UROBILINOGEN,URINE 0.2 (NORMAL) E.U./dL (NORMAL)
[2023-08-23] MEDS ORDERED: iohexoL-300 100 ML VIAL ONE (14:48)
[2023-08-23] MEDS ORDERED: iohexoL-300 100 ML VIAL IVP ONE (16:08)
--- NOTE | 2023-08-23 17:07 | CT Report ---
PROCEDURE: CT brain without contrast INDICATIONS: R leg weakness x 20 hours TECHNIQUE: Helical axial CT of the brain was obtained without contrast and reformatted in multiple p lanes. Radiation dose reduction was achieved using automated exposure control or adjustment of mA and /or kV according to patient size. COMPARISON: None FINDINGS: CSF spaces: Ventricles are appropriate in size and position. No hydrocephalus. Basal cisterns unre markable. Brain: No midline shift. No intracranial masses or hemorrhage. Diaz-white matter interface is norm al. Atrophy and white matter chronic ischemic change. 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 Sinuses: Visualized sinuses and mastoids are clear. IMPRESSION: Atrophy, chronic ischemic change and old right frontal infarct, stable from the. No intracranial hemo rrhage. Reviewed by: Keshawn Guerrero MD on 08/23/2023 4:06 PM [place] Approved by: Keshawn Guerrero MD on 08/23/2023 4:06 PM [place] Station ID: [id number]
--- NOTE | 2023-08-23 17:12 | CT Report ---
PROCEDURE: Angio Head/Neck INDICATIONS: R leg weakness x 20 hours TECHNIQUE: Helical axial CT of the head and neck was obtained during the arterial phase of a intrave nous contrast injection utilizing an angiographic protocol. Multiplanar traditional and MIP reformat s were also obtained. Dose reduction techniques included either automated exposure control or adjustm ent of exposure parameters. COMPARISON: None. FINDINGS: Cerebral CT Angiogram: Internal carotid arteries: Dense atherosclerotic calcifications involving the cavernous segments of b oth ICA resulting in 50% stenosis bilaterally. Anterior cerebral arteries: Unremarkable. No significant stenosis. No occlusion. No aneurysm. Middle cerebral arteries: Unremarkable. No significant stenosis. No occlusion. No aneurysm. Posterior cerebral arteries: Unremarkable. No significant stenosis. No occlusion. No aneurysm. Basilar artery: Unremarkable. No significant stenosis. No occlusion. No aneurysm. Vertebral arteries: Unremarkable as visualized. Dural venous sinuses: Unremarkable given phase of enhancement. Other: Arterial phase appearance of the brain parenchyma is unremarkable. Neck CT Angiogram: Internal carotid arteries: Atherosclerotic vascular calcification noted in the proximal ICA bilateral ly without significant stenosis utilizing NASCET criteria Common carotid arteries: Unremarkable. No significant stenosis. No dissection or occlusion. External carotid arteries: Unremarkable. No occlusion. Vertebral arteries: Unremarkable. No significant stenosis. No dissection or occlusion. Aortic Arch and Mediastinum: Partially visualized aortic arch unremarkable without evidence of aneury sm. Origins of the great vessels unremarkable. Other: Arterial phase soft tissues of the neck are unremarkable. 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 Otherwise, no evidence of large vessel occlusion, aneurysm or vascular operation. 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
--- NOTE | 2023-08-23 19:09 | XRAY Report ---
PROCEDURE: Tib/Fib LT INDICATIONS: diabetic leg wounds TECHNIQUE: 2 views of the tibia and fibula were acquired. COMPARISON: None. FINDINGS: Bones: Left ankle tibiotalar joint arthroplasty. Fixation screws in the foot. Bony destruction at th e left ankle. Most pronounced at the distal fibula. Extensive degenerative changes. No fractures or d islocations. No suspicious bony lesions. Severe degenerative changes at the left knee. Soft tissues: No suspicious soft tissue calcifications or masses. Arteriovascular calcifications. IMPRESSION: Bony destruction at the left ankle most pronounced at the distal fibula. The chronicity of this findi ng is uncertain, but suspect chronic etiology. Left ankle arthroplasty. Reviewed by: Miller Joy MD on 08/23/2023 7:08 PM PST Approved by: Miller Joy MD on 08/23/2023 7:08 PM PST Station ID: [id number]
[2023-08-23 19:34] VITALS: BP 136/82; O2SAT 99
== END 2023-08-23 19:25 | disposition home or self-care (01) ==
LOC: ED 13:18
DX: G45.9 Transient cerebral ischemic attack, unspecified (principal); E11.621 Type 2 diabetes mellitus with foot ulcer; L97.529 Non-pressure chronic ulcer of other part of left foot with unspecified severity; E11.42 Type 2 diabetes mellitus with diabetic polyneuropathy; Z79.84 Long term (current) use of oral hypoglycemic drugs; I48.91 Unspecified atrial fibrillation; Z79.01 Long term (current) use of anticoagulants; Z95.0 Presence of cardiac pacemaker
CPT/HCPCS: 36415; 70450; 70496; 70498; 73590; 80053; 81003; 83690; 85025; 85610; 85651; 85730; 86140; 87070; 87205; 93005; 99283; 99284; Q9967; 81001; 87077; 87086; 87181

== ENCOUNTER 2023-09-23 12:55 | Outpatient (CLI) | payer MEDICARE ==
[2023-09-23 13:14] LABS: BASOPHILS # (AUTO) 0.1 10^3/uL (0.0-0.1); BASOPHILS % (AUTO) 0.9 %; EOSINOPHILS # (AUTO) 0.4 10^3/uL (0.0-0.7); EOSINOPHILS % (AUTO) 5.3 %; HCT - HEMATOCRIT 36.8 % (42.0-52.0); HGB - HEMOGLOBIN 10.9 g/dL (14.0-18.0); LYMPHOCYTES # (AUTO) 0.9 10^3/uL (1.5-3.5); LYMPHOCYTES % (AUTO) 12.7 %; MEAN CORPUSCULAR HEMOGLOBIN 26.7 pg (27.0-31.0); MEAN CORPUSCULAR HGB CONC 29.6 g/dL (32.0-36.0); MEAN PLATELET VOLUME 9.1 fL (7.4-11.4); MONOCYTES # (AUTO) 0.5 10^3/uL (0.0-1.0); MONOCYTES % (AUTO) 7.6 %; NEUTROPHILS # (AUTO) 5.1 10^3/uL (1.5-6.6); NEUTROPHILS % (AUTO) 73.1 %; PLT - PLATELET COUNT 210 10^3/uL (130-450); RED BLOOD COUNT 4.09 10^6/uL (4.70-6.10); RED CELL DISTRIBUTION WIDTH 20.1 % (12.0-15.0)
[2023-09-23 13:30] LABS: RBC MORPHOLOGY (MULTIPLE) 4+ ANISOCYTOSIS (NORMAL); SLIDE REVIEW? Indicated
[2023-09-23 13:36] LABS: ALBUMIN 4.2 g/dL (3.2-5.5); ALBUMIN/GLOBULIN RATIO 1.4 (1.0-2.2); BILIRUBIN,TOTAL 0.8 mg/dL (0.2-1.0); CALCIUM 10.4 mg/dL (8.5-10.3); CREATININE 1.1 mg/dL (0.6-1.3); POTASSIUM 4.2 mmol/L (3.5-4.5); TOTAL PROTEIN 7.1 g/dL (6.4-8.9)
== END 2023-09-23 12:56 | disposition home or self-care (01) ==
LOC: LAB.R 12:55
PROVIDERS: ATTEND Internal Medicine Infectious Disease
DX: B96.5 Pseudomonas (aeruginosa) (mallei) (pseudomallei) as the cause of diseases classified elsewhere (principal)
CPT/HCPCS: 80053; 85025

== ENCOUNTER 2023-09-30 15:34 | Outpatient (CLI) | payer MEDICARE ==
[2023-09-30 15:48] LABS: BASOPHILS # (AUTO) 0.1 10^3/uL (0.0-0.1); BASOPHILS % (AUTO) 0.9 %; EOSINOPHILS # (AUTO) 0.5 10^3/uL (0.0-0.7); EOSINOPHILS % (AUTO) 5.5 %; HCT - HEMATOCRIT 38.5 % (42.0-52.0); HGB - HEMOGLOBIN 11.3 g/dL (14.0-18.0); LYMPHOCYTES # (AUTO) 1.3 10^3/uL (1.5-3.5); LYMPHOCYTES % (AUTO) 14.7 %; MEAN CORPUSCULAR HEMOGLOBIN 26.3 pg (27.0-31.0); MEAN CORPUSCULAR HGB CONC 29.4 g/dL (32.0-36.0); MEAN CORPUSCULAR VOLUME 89.7 fL (80.0-94.0); MEAN PLATELET VOLUME 9.3 fL (7.4-11.4); MONOCYTES # (AUTO) 0.7 10^3/uL (0.0-1.0); MONOCYTES % (AUTO) 8.1 %; NEUTROPHILS # (AUTO) 6.2 10^3/uL (1.5-6.6); NEUTROPHILS % (AUTO) 70.5 %; PLT - PLATELET COUNT 212 10^3/uL (130-450); RED BLOOD COUNT 4.29 10^6/uL (4.70-6.10); RED CELL DISTRIBUTION WIDTH 19.9 % (12.0-15.0); WHITE BLOOD COUNT 8.7 x10^3/uL (4.8-10.8)
[2023-09-30 16:50] LABS: ALBUMIN 4.3 g/dL (3.2-5.5); ALBUMIN/GLOBULIN RATIO 1.5 (1.0-2.2); BILIRUBIN,TOTAL 0.6 mg/dL (0.2-1.0); CALCIUM 10.5 mg/dL (8.5-10.3); CREATININE 1.4 mg/dL (0.6-1.3); POTASSIUM 4.4 mmol/L (3.5-4.5); TOTAL PROTEIN 7.1 g/dL (6.4-8.9)
== END 2023-09-30 15:35 | disposition home or self-care (01) ==
LOC: LAB.R 15:34
PROVIDERS: ATTEND Internal Medicine Infectious Disease
DX: A49.8 Other bacterial infections of unspecified site (principal)
CPT/HCPCS: 80053; 85025

== ENCOUNTER 2023-10-01 13:38 | Outpatient (CLI) | payer MEDICARE ==
[2023-10-01 14:16] LABS: CALCIUM 10.6 mg/dL (8.5-10.3); CREATININE 1.3 mg/dL (0.6-1.3); POTASSIUM 4.4 mmol/L (3.5-4.5)
== END 2023-10-01 13:39 | disposition home or self-care (01) ==
LOC: LAB.R 13:38
PROVIDERS: ATTEND Internal Medicine Infectious Disease
DX: B96.5 Pseudomonas (aeruginosa) (mallei) (pseudomallei) as the cause of diseases classified elsewhere (principal)
CPT/HCPCS: 80048

== ENCOUNTER 2024-02-01 11:46 | Outpatient (CLI) | payer MEDICARE ==
--- NOTE | 2024-02-01 18:42 | Ultrasound Report ---
PROCEDURE: Ankle Brachial Index INDICATIONS: PAD TECHNIQUE: Ankle-brachial indices were obtained bilaterally and recorded. COMPARISONS: None. FINDINGS: Right ankle brachial index (EFFIE): 0.8 Left ankle brachial index (EFFIE): 0.88 Healing potential: Ankle pressures >55 mm Hg in non-diabetics and >80 mm Hg in diabetics are likely to achieve primary h ealing of ischemic foot ulcers. Toe pressures >30 mm Hg are likely to achieve primary healing of ischemic foot ulcers, toe or transme tatarsal amputations. IMPRESSION: Bilateral ankle brachial indices are less than 0.9, potentially in the claudication category. Reviewed by: Bryn Escalante MD on 02/01/2024 6:40 PM PDT Approved by: Bryn Escalante MD on 02/01/2024 6:40 PM PDT Station ID: [id number]
== END 2024-02-01 11:47 | disposition home or self-care (01) ==
LOC: DI 11:46
PROVIDERS: ATTEND Surgery Vascular Surgery
DX: I73.9 Peripheral vascular disease, unspecified (principal)
CPT/HCPCS: 93922

== ENCOUNTER 2025-07-17 20:07 | Inpatient (IN) ==
--- NOTE | 2025-07-17 20:19 | ED Physician Documentation ---
PD HPI FOCAL NEURO Stated complaint Stated Complaint: CODE STROKE Chief complaint Chief Complaint: Neuro History obtained from History obtained from: Patient and EMS Additional information Additional information: 89-year-old male presents to the emergency department with a right sided facial droop. noticed this at 5 PM. Unclear when the last known normal was. He reportedly was seen in the emergency department earlier today and arrived home around 330. EMS did not ask when the last seen normal was, they state that the states she noticed it at 5. Patients arrived to the ER and states that she did not notice the facial droop at all, but her neighbor noted the facial droop when she tried to get him in the car to bring him back to the ER. She states he was here earlier for B LE weakness that started this am. has a defibrillator and is on pradaxa for afib. usually does not have leg weakness. No falls. no neck or back pain. No numbness or paresthesias. No loss of bowel or bladder control. Review of Systems Constitutional Denies: Fever or Chills Cardiovascular Denies: chest pain Respiratory Denies: Cough Gastrointestinal Denies: Vomiting Meds/Allgy Home Medications Ambulatory Orders Medication Instructions Recorded Confirmed atorvastatin 20 mg tablet 20 mg PO DAILY 02/03/1506/26 metformin 500 mg tablet 2,000 mg PO BID 09/09/17 amiodarone 200 mg tablet 200 mg PO HS 08/28/24 atorvastatin 40 mg tablet 80 mg PO DAILY 08/28/2406/26 carvedilol 12.5 mg tablet 25 mg PO BID 08/28/24 empagliflozin 25 mg tablet 25 mg PO QAM 08/28/2407/17 (Jardiance) finasteride 5 mg tablet 5 mg PO DAILY 08/28/2407/17 losartan 25 mg tablet 25 mg PO QDAY 08/28/2407/17 multivitamin 1 tab PO QAM 08/28/24 potassium chloride 10 mEq 10 meq PO BID 08/28/2407/17 tablet,extended release spironolactone 25 mg tablet 12.5 mg PO DAILY 08/28/24 07/17/25 torsemide 10 mg tablet 20 mg PO DAILY 08/28/2406/26 trazodone 50 mg tablet 50 mg PO HS 08/28/24 5 cholecalciferol (vitamin D3) 50 50 mcg PO DAILY 07/17/25 mcg (2,000 unit) tablet (D3 DOTS) dabigatran etexilate 150 mg capsule 150 mg PO BID 06/2607/17/25 ferrous sulfate 325 mg (65 mg 325 mg PO DAILY 07/17/25 07/17/25 iron) tablet (Feosol) Allergies Allergies Allergy/AdvReac Type Severity Reaction Status Date / Time No Known Drug Allergies Allergy Verified 07/17/25 20:35 PFSH Active Problems All Active Problems Acute stroke due to ischemia (Acute) Weakness (Acute) Fall (Acute) Acute pain of right hip (Acute) Closed head injury (Acute) Impacted cerumen, left ear (Acute) Bladder spasm (Acute) Anticoagulant long-term use (Acute) Hematuria (Acute) Complication, blocked Gurrol[place] catheter (Acute) Urinary tract infection (Acute) Urinary retention (Acute) Visit for suture removal (Acute) Open fracture of phalanx of finger of right hand (Acute) Subungual hematoma (Acute) Finger laceration (Acute) Postoperative heart failure following cardiac surgery (Acute) Dyspnea (Acute) Congestive heart failure (Acute) Pain at surgical incision (Acute) Medical History Medical History No pertinent past medical history Social History Social History Smoking Status: Unknown if ever smoked Do you feel safe in your home environment?: Yes History of physical, verbal, emotional, or financial abuse?: No Frequency: Occasional Exam Exam Vital Signs: Vital Signs x48h Temp Pulse Resp BP Pulse Ox 07/17/25 23:10 65 19 98 07/17/25 22:35 64 19 140/75 H 93 07/17/25 22:21 65 14 134/83 H 96 07/17/25 22:05 65 24 139/82 H 94 07/17/25 21:51 65 14 142/79 H 90 L 07/17/25 21:35 65 14 153/88 H 92 07/17/25 21:20 65 21 148/74 H 95 07/17/25 21:05 65 13 135/72 H 94 07/17/25 20:56 64 19 138/103 H 98 07/17/25 20:35 64 22 138/67 H 93 07/17/25 20:18 60 12 147/83 H 93 07/17/25 20:09 36.7 C 64 19 134/81 H 98 Constitutional normal general appearance and no apparent distress HENMT normocephalic and head/scalp atraumatic Eyes PERRL and EOMs intact bilaterally Neck/C-Spine visual inspection normal and trachea midline Respiratory breath sounds equal bilaterally and normal respiratory effort Cardiovascular normal heart rate noted and regular rhythm noted Gastrointestinal abdomen soft to palpation, nontender to palpation and nondistended Back/Pelvis no thoracic spine tenderness and no lumbar spine tenderness Extremities no tenderness Neurology no sensory deficits noted 3 out of 5 strength in the bilateral lower extremities. No sensory deficits. Mild right facial droop. Mild dysarthria Psychiatry mental status grossly normal and oriented x3 Skin skin color normal Results Vitals Vitals: Vital Signs - 24 hr 07/17/25 14:59 07/17/25 20:09 07/17/25 20:18 Temperature 36.7 C Temperature Source Temporal Artery Scan Pulse Rate 64 60 Respiratory Rate 19 12 Blood Pressure 134/81 H 147/83 H O2 Saturation 98 93 O2 Source Room air Room air Room air Pain Intensity 0 0 07/17/25 20:35 07/17/25 20:56 07/17/25 21:05 Temperature Temperature Source Pulse Rate 64 64 65 Respiratory Rate 22 19 13 Blood Pressure 138/67 H 138/103 H 135/72 H O2 Saturation 93 98 94 O2 Source Room air Room air Room air Pain Intensity 0 07/17/25 21:20 07/17/25 21:35 07/17/25 21:51 Temperature Temperature Source Pulse Rate 65 65 65 Respiratory Rate 21 14 14 Blood Pressure 148/74 H 153/88 H 142/79 H O2 Saturation 95 92 90 L O2 Source Room air Room air Room air Pain Intensity 07/17/25 22:05 07/17/25 22:21 07/17/25 22:35 Temperature Temperature Source Pulse Rate 65 65 64 Respiratory Rate 24 14 19 Blood Pressure 139/82 H 134/83 H 140/75 H O2 Saturation 94 96 93 O2 Source Room air Room air Room air Pain Intensity 07/17/25 23:10 Temperature Temperature Source Pulse Rate 65 Respiratory Rate 19 Blood Pressure O2 Saturation 98 O2 Source Room air Pain Intensity 0 Oxygen O2 Source Room air EKG (time done) 2025: EKG releavant findings:: EKG personally interpreted by author of this note. Relevant findings are: Rate: Other (64 bpm. Sinus rhythm. Right bundle branch block. He) Labs Labs: Laboratory Tests 07/17/25 20:26 WBC 7.8 RBC 4.07 L Hgb 12.7 L Hct 40.2 L MCV 98.8 H MCH 31.2 H MCHC 31.6 L RDW 14.4 Plt Count 164 MPV 8.7 Neut # (Auto) 6.0 Lymph # (Auto) 1.0 L [place] # (Auto) 0.5 Eos # (Auto) 0.2 Baso # (Auto) 0.1 Absolute Nucleated RBC 0.00 Nucleated RBC % 0.0 PT 14.8 H INR 1.3 H Sodium 140 Potassium 4.0 Chloride 103 Carbon Dioxide 29 Anion Gap 8.0 BUN 32 H Creatinine 1.1 Estimated GFR (MDRD) 63 L Glucose 126 H Calcium 9.6 Total Bilirubin 0.6 AST 18 ALT 21 Alkaline Phosphatase 118 Total Protein 6.9 Albumin 4.1 Globulin 2.8 Albumin/Globulin Ratio 1.5 Lipase 38 Rads (name of study) CT head, CT angiogram head and neck,: Relevant Findings:: Final report received PD Medical Decision Making ED course Complexity details: reviewed results, re-evaluated patient, considered differential and d/w patient ED course: Patient is activated as a code stroke. Evaluated the patient in the hallway and sent to CT. When the patient's arrived, I was able to obtain more history from her. She states that the patient awoke this morning with increasing weakness in his legs and slurring of his speech, but she states that she had a hard time telling if that was secondary to his dry mouth. She states that the slurring had become slightly worse tonight so she had a neighbor come and help her get him into the car and when they arrived they noticed that he had a right sided facial droop. She thinks that was around 5 PM tonight. He is on Pradaxa at home for history of atrial fibrillation. Has an implanted defibrillator so cannot have an MRI. Telestroke evaluated the patient, no LVO on CT angiogram. Recommend starting on aspirin 81 mg p.o. daily. Hold Pradaxa for 2 to 3 days. Telestroke healthcare management consultant will be available for the hospitalist team in the morning. Discussed with the nighttime hospitalist who accepts. This document was made in part using voice recognition software. While efforts are made to proofread this document, sound alike and grammatical errors may occur. 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 NIHSS Time 2015: Time: 20:15 Level of Consciousness Level of consciousness: (0) Alert, Keenly responsive LOC Questions: (0) Answers both Q's correct LOC Commands: (0) Performs both correctly Gaze Best Gaze: (0) Normal Visual Visual: (0) No loss Facial Palsy Facial Palsy: (2) Partial paralysis Motor Arms (both separate) Motor Arm (right): (0) No drift Motor Arm (left): (1) Drift Motor Legs (both separate) Motor Leg (right): (2) Some effort against gravity Motor Leg (left): (2) Some effort against gravity Limb Ataxia Limb Ataxia: (0) Absent Sensory Sensory: (0) Normal Best Language Best Language: (0) No aphasia Dysarthria Dysarthria: (1) [id number] dysarthria Extinction and Inattention (formally neg Extinction and inattention: (0) No abnormality Total Score/Results Total Score/Result: 8
--- OUTSIDE RECORDS SUMMARY | 2025-07-17 20:20 | EXTERNAL MEDICAL SUMMARY RPT | Continuity of Care Document ---
Author Organization [facility] Address [address] [place] [id number] Phone Allergies and Intolerances date description facility reaction severity 2023-08-23 10:00 [id number]^No Known Drug Allergies^^No Known Drug Allergies^^allergy.id [facility] (no reaction) (no severity) Problems date description facility 2025-06-12 10:46 Headache, unspecified [facility] 2025-06-12 10:46 Unspecified injury of head, ini tial encounter [facility] 2025-07-12 14:24 Local infection of t he skin and subcutaneous tissue, [facility] 2025-07-12 14:24 Other injury of unsp ecified body region, initial encounter [facility] 2025-07-12 14:30 Local infection of t he skin and subcutaneous tissue, [facility] 2025-07-12 14:30 Other injury of unsp ecified body region, initial encounter [facility] 2025-07-13 11:35 Local infection of t he skin and subcutaneous tissue, [facility] 2025-07-13 11:35 Other injury of unsp ecified body region, initial encounter [facility] Results/Labs test date facility value unit notes Result panel 1 Gram Stain 2025-06-28 20:48 [facility] (missing) (cedric ng) (missing) White blood cells 2025-06-28 20:48 [facility] No WBC seen (missing) (missing ) No Organism Seen 2025-06-28 20:48 [facility] No o rganisms seen (missing) (missing) Result panel 2 Gram Stain 2025-06-29 08:42 [facility] (missing) (cedric ng) (missing) White blood cells 2025-06-29 08:42 [facility] No WBC se en (missing) (missing) No Organism Seen 2025-06-29 08:42 [facility] No o rganisms seen (missing) (missing) Anaerobic Culture 2025-06-29 08:42 [facility] Malinda t not performed (missing) (missing) Result panel 3 Gram Stain 2025-06-29 10:44 [facility] (missing) (missing) (missing) ORGANISM 2025-06-29 10:44 [facility] GPCGram positive cocci (missing) (missing) Action to follow 2025-06-29 10:44 [facility] Identification and Sensitivity to Follow (missing) (missing) Quantity of Growth 2025-06-29 10:44 [facility] LIGHT (missing) (missing) White blood cells 2025-06-29 10:44 [facility] No WBC seen (missing) (missing) No Organism Seen 2025-06-29 10:44 [facility] No organisms seen (missing) (missing) Anaerobic Culture 2025-06-29 10:44 [facility] Test not performed (missing) (missing) Result panel 4 Aerobic Culture for wounds 2025-06-30 08:17 [facility] (missing) (missing) (missing) Gram Stain 2025-06-30 08:17 [facility] (missing) (missing) (missing) Gentamicin 2025-06-30 08:17 [facility] >=16 (missing) (missing) Tetracycline 2025-06-30 08:[address] [place] [address] >=16 (missing) (missing) Trimethoprim/Sulfa methoxazole 2025-06-30 08:17 [facility] >=320 (missing) (missing) Oxacillin Steven 2025-06-30 08:17 [facility] >=4 (missing) (missing) Ciprofloxacin 2025-06-30 08:17 [facility] >=8 (missing) (missing) Erythromycin 2025-06-30 08:17 [facility] <=0.25 (missing) (missing) Rifampin 2025-06-30 08:[address] [place] [address] <=0.5 (missing) (missing) Daptomycin 2025-06-30 08:17 [facility] 1 (missing) (missing) Vancomycin 2025-06-30 08:17 [facility] 1 (missing) (missing) Linezolid 2025-06-30 08:17 [facility] 2 (missing) (missing) Moxifloxacin 2025-06-30 08:17 [facility] 2 (missing) (missing) Levofloxacin 2025-06-30 08:17 [facility] 4 (missing) (missing) Doxycycline 2025-06-30 08:17 [facility] 8 (missing) (missing) Aerobic Culture for wounds 2025-06-30 08:17 [facility] Based on resistance to oxacillin this isolate would be (missing) (missing) Quantity of Growth 2025-06-30 08:17 [facility] LIGHT (missing) (missing) ORGANISM 2025-06-30 08:17 [facility] MRSAMethicillin Resis Staph Aureus (missing) (missing) Action to follow 2025-06-30 08:17 [facility] No Further Workup (missing) (missing) White blood cells 2025-06-30 08:17 [facility] No WBC seen (missing) (missing) No Organism Seen 2025-06-30 08:17 [facility] No organisms seen (missing) (missing) Aerobic Culture for wounds 2025-06-30 08:17 [facility] Routine testing of other penicillins, beta-lactam/beta (missing) (missing) Anaerobic Culture 2025-06-30 08:[address] [place] [address] Test not performed (missing) (missing) MRSA? 2025-06-30 08:17 [facility] YES (missing) (missing) Aerobic Culture for wounds 2025-06-30 08:[address] [place] [address] carbapenems is not advised by CLSI Standards. (missing) (missing) Aerobic Culture for wounds 2025-06-30 08:[address] [place] [address] lactamase inhibitor combinations, cephalosporins, and (missing) (missing) Aerobic Culture for wounds 2025-06-30 08:[address] [place] [address] resistant to all formulary beta-lactam antimicrobial agents. (missing) (missing) Result panel 5 Aerobic Culture for wounds 2025-07-03 08:57 [facility] (missing) (missing) (missing) Gram Stain 2025-07-03 08:[address] [place] [address] (missing) (missing) (missing) Gentamicin 2025-07-03 08:[address] [place] [address] >=16 (missing) (missing) Tetracycline 2025-07-03 08:[address] [place] [address] >=16 (missing) (missing) Trimethoprim/Sulfa methoxazole 2025-07-03 08:57 [facility] >=320 (missing) (missing) Oxacillin Steven 2025-07-03 08:[address] [place] [address] >=4 (missing) (missing) Ciprofloxacin 2025-07-03 08:57 [facility] >=8 (missing) (missing) Erythromycin 2025-07-03 08:[address] [place] [address] <=0.25 (missing) (missing) Rifampin 2025-07-03 08:57 [facility] <=0.5 (missing) (missing) Daptomycin 2025-07-03 08:57 [facility] 1 (missing) (missing) Vancomycin 2025-07-03 08:57 [facility] 1 (missing) (missing) Linezolid 2025-07-03 08:57 [facility] 2 (missing) (missing) Moxifloxacin 2025-07-03 08:57 [facility] 2 (missing) (missing) Levofloxacin 2025-07-03 08:57 [facility] 4 (missing) (missing) Doxycycline 2025-07-03 08:57 [facility] 8 (missing) (missing) Aerobic Culture for wounds 2025-07-03 08:57 [facility] Based on resistance to oxacillin this isolate would be (missing) (missing) Quantity of Growth 2025-07-03 08:57 [facility] LIGHT (missing) (missing) ORGANISM 2025-07-03 08:57 [facility] MRSAMethicillin Resis Staph Aureus (missing) (missing) Action to follow 2025-07-03 08:57 [facility] No Further Workup (missing) (missing) White blood cells 2025-07-03 08:57 [facility] No WBC seen (missing) (missing) No Organism Seen 2025-07-03 08:57 [facility] No organisms seen (missing) (missing) Aerobic Culture for wounds 2025-07-03 08:57 [facility] Routine testing of other penicillins, beta-lactam/beta (missing) (missing) Called To: 2025-07-03 08:57 [facility] SOFIE Callaway WOUNDYAMILE (missing) (missing) Anaerobic Culture 2025-07-03 08:57 [facility] Test not performed (missing) (missing) MRSA? 2025-07-03 08:57 [facility] YES (missing) (missing) Aerobic Culture for wounds 2025-07-03 08:57 [facility] carbapenems is not advised by CLSI Standards. (missing) (missing) Aerobic Culture for wounds 2025-07-03 08:57 [facility] lactamase inhibitor combinations, cephalosporins, and (missing) (missing) Aerobic Culture for wounds 2025-07-03 08:[address] [place] [address] resistant to all formulary beta-lactam antimicrobial agents. (missing) (missing) Result panel 6 Basophils Percent Auto 2025-07-12 15:22 [facility] 0.9 % (missing) Basophils Absolute Auto 2025-07-12 15:22 [facility] 100 /ul (missing) Lymphocytes Percent Auto 2025-07-12 15:22 [facility] 11 .6 % (missing) Hemoglobin 2025-07-12 15:[address] [place] [address] 13.7 g/dl (missing) Red Cell Distribution Width 2025-07-12 15:22 [facility] 15.0 % (missing) Platelet Count 2025-07-12 15:22 [facility] 227 x1 0 3/ul (missing) Eosinophils Percent Auto 2025-07-12 15:22 [facility] 3. 8 % (missing) Eosinophils Absolute Auto 2025-07-12 15:[address] [place] [address] 3 00 /ul (missing) Mean Corpuscular Hemoglobin 2025-07-12 :[address] [place] [address] 31.1 pg (missing) Mean Corpuscular HGB Conc 2025-07-12 15:22 [facility] 3 3.4 % (missing) Red Blood Cell Count 2025-07-12 15:[address] [place] [address] 4.39 x10 6/ul (missing) Monocytes Absolute Auto 2025-07-12 15:22 [facility] 400 /ul (missing) Hematocrit 2025-07-12 15:22 [facility] 41.0 % (missing) Monocytes Percent Auto 2025-07-12 15:[address] [place] [address] 5.6 % (missing) Neutrophils Absolute Auto 2025-07-12 15:[address] [place] [address] 6 100 /ul (missing) White Blood Cell Count 2025-07-12 15:22 [facility] 7.8 x10 3/ul (missing) Neutrophils Percent Auto 2025-07-12 15:[address] [place] [address] 78 .1 % (missing) Lymphocytes Absolute Auto 2025-07-12 15:[address] [place] [address] 9 00 /ul (missing) Mean Corpuscular Volume 2025-07-12 :22 [facility] 93. 3 fl (missing) Result panel 7 Estimated Glomerular Filt Rate 2025-07-12 15:38 [facility] > 60 ml/min Reported eGFR is based the CKD-EPI 2020 equation that does not use a race coefficient. An eGFR below 60 mL/min/1.73m2 suggests that some kidney damage has occurred, and indicative of chronic kidney disease if persisting greater than 3 months. An eGFR less than 15 is indicative of kidney failure. C-Reactive Protein Quant 2025-07-12 15:[address] [place] [address] < 0.5 mg/dl (missing) Bilirubin Total 2025-07-12 15:[address] [place] [address] 0.6 mg/dl (missing) Creatinine 2025-07-12 15:[address] [place] [address] 1.10 mg/dl (missing) Albumin Globulin Ratio 2025-07-12 15:[address] [place] [address] 1.4 (missing) (missing) Chloride 2025-07-12 15:[address] [place] [address] 105 mmol/l (missing) Glucose 2025-07-12 15:[address] [place] [address] 110 mg/dl (missing) Alkaline Phosphatase 2025-07-12 15:[address] [place] [address] 141 u/l (missing) Sodium 2025-07-12 15:[address] [place] [address] 145 mmol/l (missing) BUN Creatinine Ratio 2025-07-12 :[address] [place] [address] 24.5 (missing) (missing) Alanine Aminotransferase 2025-07-12 15:[address] [place] [address] 27 iu/l (missing) Blood Urea Nitrogen 2025-07-12 15:[address] [place] [address] 27 mg/dl (missing) Carbon Dioxide 2025-07-12 15:[address] [place] [address] 27 mmol/l (missing) Globulin 2025-07-12 15:[address] [place] [address] 3.4 g/dl (missing) Aspartate Aminotransferase 2025-07-12 15:[address] [place] [address] 31 iu/l (missing) Potassium 2025-07-12 15:[address] [place] [address] 4.1 mmol/l (missing) Albumin 2025-07-12 15:[address] [place] [address] 4.6 g/dl (missing) Total Protein 2025-07-12 15:[address] [place] [address] 8.0 g/dl (missing) Calcium 2025-07-12 15:[address] [place] [address] 9.8 mg/dl (missing) Result panel 8 GLUCOSE, URINE (UA) 2025-07-17 12:[address] [place] [address] >=1000 mg/dl (missing) UROBILINOGEN,URI NE 2025-07-17 12:00 [facility] 0.2 (NORMAL) e.u./dl (missing) SPECIFIC GRAVITY,URINE 2025-07-17 12:[address] [place] [address] 1.015 (missing) (missing) PH,URINE 2025-07-17 12:00 [facility] 5.5 ph (missing) CLARITY,URINE 2025-07-17 [facility] CLEAR (missing) (missing) LEUKOCYTE ESTERASE, URINE 2025-07-17: [facility] NEGATIVE (missing) (missing) NITRITE,URINE 2025-07-17:[address] [place] [address] NEGATIVE (missing) (missing) OCCULT BLOOD,URINE 2025-07-[address] [place] [address] NEGATIVE (missing) (missing) BILIRUBIN,URINE 2025-07-17: [facility] NEGATIVE (missing) Bilirubin can be influenced by color interference. Please correlate positive results with clinical presentation KETONES,URINE (UA) 2025-07-17: [facility] NEGATIVE mg/dl (missing) PROTEIN,URINE 2025-07-17: [facility] NEGATIVE mg/dl (missing) UR CULTURE IF IND 2025-07-17 [facility] NOT INDICATED (missing) (missing) URINE MICROSCOPIC INDICATED? 2025-07-[address] [place] [address] NOT INDICATED (missing) (missing) COLOR,URINE 2025-07-[address] [place] [address] YELLOW (missing) URINE CATHETERIZED Result panel 9 PROCALCITONIN 2025-07-17 [facility] < 0.05 ng/ml PCT Concentration (n g/mL) Children >72hrs old and Adults Interpretation <0.5 Low risk of severe sepsis and/or septic shock >2.0 High risk of severe sepsis and/or septic shock Concentrations under 0.5 ng/mL do not exclude local infections or systemic infections in their initial stages (e.g. under six hours from onset of illness). PCT concentrations between 0.5 and 2.0 ng/mL should be interpreted with consideration of the patient's history. In this range, it is recommended to retest PCT within 6 to 24hours. NUCLEATED RED BLOOD CELLS AUTO 2025-07-17 [facility] 0.0 /100wbc (missing) NRBC ABSOLUTE COUNT (AUTO) 2025-07-17:[address] [place] [address] 0.00 x10 3/ul (missing) BASOPHILS # (AUTO) 2025-07-[address] [place] [address] 0.1 10 3/ul (missing) EOSINOPHILS # (AUTO) 2025-07-17 12:[address] [place] [address] 0.2 10 3/ul (missing) MONOCYTES # (AUTO) 2025-07-17 12:[address] [place] [address] 0.4 10 3/ul (missing) BILIRUBIN,TOTAL 2025-07-17 :[address] [place] [address] 0.5 mg/dl As of January 2023 test ing method has changed, this may include reference ranges. LYMPHOCYTES # (AUTO) 2025-07-17 :[address] [place] [address] 1.0 10 3/ul (missing) CREATININE 2025-07-17 :[address] [place] [address] 1.1 mg/dl As of January 2023 test ing method has changed, this may include reference ranges. ALBUMIN/GLOBULIN RATIO 2025-07-17 :[address] [place] [address] 1.4 (missin g) (missing) CALCIUM 2025-07-[address] [place] [address] 10.0 mg/dl As of January 2023 test ing method has changed, this may include reference ranges. CHLORIDE 2025-07-17 :[address] [place] [address] 104 mmol/l As of January 2023 test ing method has changed, this may include reference ranges. GLUCOSE 2025-07-17 :[address] [place] [address] 106 mg/dl As of January 2023 test ing method has changed, this may include reference ranges. ALKALINE PHOSPHATASE 2025-07-17 :[address] [place] [address] 119 iu/l As of January 2023 test ing method has changed, this may include reference ranges. HGB - HEMOGLOBIN 2025-07-17 12:[address] [place] [address] 12.3 g/dl (missing) RED CELL DISTRIBUTION WIDTH 2025-07-17 :[address] [place] [address] 14.4 % (missing) SODIUM 2025-07-17 :[address] [place] [address] 141 mmol/l (missing) AST ASPARTATE AMINOTRANSFERASE 2025-07-17 :[address] [place] [address] 15 iu/l As of January 2023 test ing method has changed, this may include reference ranges. PLT - PLATELET COUNT 2025-07-17 12:[address] [place] [address] 158 10 3/ul (missing) LACTIC ACID, VENOUS 2025-07-17 :[address] [place] [address] 2.5 mmol/l N As of January 2023 te sting method has changed, this may include reference ranges. GLOBULIN 2025-07-17 :[address] [place] [address] 2.9 g/dl (missing) ALT ALANINE AMINOTRANSFERASE 2025-07-17 12:[address] [place] [address] 20 iu/l As of January 2023 test ing method has changed, this may include reference ranges. RED BLOOD COUNT 2025-07-17 12:[address] [place] [address] 3.99 10 6/ul (missing) CARBON DIOXIDE - CO2 2025-07-17 12:[address] [place] [address] 30 mmol/l As of January 2023 test ing method has changed, this may include reference ranges. MEAN CORPUSCULAR HEMOGLOBIN 2025-07-17 12:[address] [place] [address] 30.8 pg (missing) BUN - BLOOD UREA NITROGEN 2025-07-17 12:[address] [place] [address] 31 mg/dl As of January 2023 test ing method has changed, this may include reference ranges. MEAN CORPUSCULAR HGB CONC 2025-07-17 12:[address] [place] [address] 31.1 g/dl (missing) HCT - HEMATOCRIT 2025-07-17 :[address] [place] [address] 39.5 % (missing) ALBUMIN 2025-07-17 :[address] [place] [address] 4.1 g/dl As of January 2023 test ing method has changed, this may include reference ranges. POTASSIUM 2025-07-17 :[address] [place] [address] 4.3 mmol/l As of January 2023 test ing method has changed, this may include reference ranges. NEUTROPHILS # (AUTO) 2025-07-17 12:[address] [place] [address] 6.0 10 3/ul (missing) GFR - MDRD 2025-07-17 12:[address] [place] [address] 63 (missin g) The IDMS-traceable MDRD Study Equation has been validated extensively in and populations between the ages of 18 and 70 with impaired kidney function (eGFR < 60 mL/min/1.73m2) and has shown good performance for patients with all common causes of kidney disease. Although this equation has not been validated for patients older than 70, an MDRD-derived eGFR may still be a useful tool for providers caring for patients older than 70. References: http://www.nkdep.nih.gov/lab -evaluation/gfr/creatinine-s tand ardization, last updated September 2011. ANION GAP 2025-07-17 12:[address] [place] [address] 7.0 (missin g) (missing) TOTAL PROTEIN 2025-07-17 :[address] [place] [address] 7.0 g/dl As of January 2023 test ing method has changed, this may include reference ranges. WHITE BLOOD COUNT 2025-07-17 12:36 [facility] 7.7 x10 3/ul (missing) MEAN PLATELET VOLUME 2025-07-17 12:36 [facility] 9.1 fl (missing) MEAN CORPUSCULAR VOLUME 2025-07-17 12:36 [facility] 99.0 fl (missing) KETONES, SERUM (ACETEST) 2025-07-17 12:36 [facility] NEGATIVE (missin g) (missing) Result panel 10 SARS-CoV-2 -RESP PCR PANEL 2025-07-17 14:[address] [place] [address] NOT DETECTED (missing) A negative test result for this test indicates that SARS-CoV-2 RNA was not present in the specimen above the limit of detection. Testing performed on the BioFire RP2.1 Panel, a multiplexed nucleic acid repiratory panel. Negative results do not preclude infection with SARS-CoV-2 virus and should not be the sole basis of a patient management decision. In some patients repeat testing at various time points may be necessary for virus detection. False-negative results may arise from improper sample collection, degradation of viral RNA during shipping or storage, the presence of PCR inhibitors, and/or mutation in the SARS-CoV-2 virus. INFLUENZA A- RESP PCR PANEL 2025-07-17 14:[address] [place] [address] NOT DETECTED (missing) Influenza A including subtypes H1, H3, and H1-2009 not detected by the BioFire RP2.1 Panel, a multiplexed nucleic acid test intended for the simultaneous qualitative detection and differentiation of nucleic acids from multiple viral and bacterial respiratory organisms. B. PARAPERTUSSIS- RESP PCR CARABALLO 2025-07-17 14:[address] [place] [address] NOT DETECTED (missing) Negative results for this organism do not preclude infection with this organism and may require additional laboratory testing (e.g., bacterial and viral culture, immunofluorescence , and radiography) when evaluating a patient with possible respiratory tract infection. B. PERTUSSIS- RESP PCR PANEL 2025-07-17 14:[address] [place] [address] NOT DETECTED (missing) Negative results for this organism do not preclude infection with this organism and may require additional laboratory testing (e.g., bacterial and viral culture, immunofluorescence , and radiography) when evaluating a patient with possible respiratory tract infection. C. PNEUMONIAE- RESP PCR PANEL 2025-07-17 14:[address] [place] [address] NOT DETECTED (missing) Negative results for this organism do not preclude infection with this organism and may require additional laboratory testing (e.g., bacterial and viral culture, immunofluorescence , and radiography) when evaluating a patient with possible respiratory tract infection. M. PNEUMONIAE- RESP PCR PANEL 2025-07-17 14:55 [facility] NOT DETECTED (missing) Negative results for this organism do not preclude infection with this organism and may require additional laboratory testing (e.g., bacterial and viral culture, immunofluorescence , and radiography) when evaluating a patient with possible respiratory tract infection. CORONAVIRUS 229E-RESP PCR 2025-07-17 14:55 [facility] NOT DETECTED (missing) Negative results in the setting ofa respiratory illness may be due to infection with pathogens not detected by this test, or lower respiratory tract infection that may not be detected by nasopharyngeal specimen. CORONAVIRUS HKU1-RESP PCR 2025-07-17 14:55 [facility] NOT DETECTED (missing) Negative results in the setting ofa respiratory illness may be due to infection with pathogens not detected by this test, or lower respiratory tract infection that may not be detected by nasopharyngeal specimen. CORONAVIRUS [id number] PCR 2025-07-17 14:55 [facility] NOT DETECTED (missing) Negative results in the setting ofa respiratory illness may be due to infection with pathogens not detected by this test, or lower respiratory tract infection that may not be detected by nasopharyngeal specimen. CORONAVIRUS [id number] PCR 2025-07-17 14:55 [facility] NOT DETECTED (missing) Negative results in the setting ofa respiratory illness may be due to infection with pathogens not detected by this test, or lower respiratory tract infection that may not be detected by nasopharyngeal specimen. HUMAN METAPNEUMOVIRUS 2025-07-17 14:55 [facility] NOT DETECTED (missing) Negative results in the setting ofa respiratory illness may be due to infection with pathogens not detected by this test, or lower respiratory tract infection that may not be detected by nasopharyngeal specimen. INFLUENZA B - RESP PCR PANEL 2025-07-17 14:55 [facility] NOT DETECTED (missing) Negative results in the setting ofa respiratory illness may be due to infection with pathogens not detected by this test, or lower respiratory tract infection that may not be detected by nasopharyngeal specimen. PARAINFLUENZA VIRUS 1 2025-07-17 14:55 [facility] NOT DETECTED (missing) Negative results in the setting ofa respiratory illness may be due to infection with pathogens not detected by this test, or lower respiratory tract infection that may not be detected by nasopharyngeal specimen. PARAINFLUENZA VIRUS 2 2025-07-17 14:55 [facility] NOT DETECTED (missing) Negative results in the setting ofa respiratory illness may be due to infection with pathogens not detected by this test, or lower respiratory tract infection that may not be detected by nasopharyngeal specimen. PARAINFLUENZA VIRUS 3 2025-07-17 14:55 [facility] NOT DETECTED (missing) Negative results in the setting ofa respiratory illness may be due to infection with pathogens not detected by this test, or lower respiratory tract infection that may not be detected by nasopharyngeal specimen. PARAINFLUENZA VIRUS 4 2025-07-17 14:55 [facility] NOT DETECTED (missing) Negative results in the setting ofa respiratory illness may be due to infection with pathogens not detected by this test, or lower respiratory tract infection that may not be detected by nasopharyngeal specimen. RHINOVIRUS/ENTEROVI TOMMY 2025-07-17 14:55 [facility] NOT DETECTED (missing) Negative results in the setting ofa respiratory illness may be due to infection with pathogens not detected by this test, or lower respiratory tract infection that may not be detected by nasopharyngeal specimen. RSV- RESP PCR PANEL 2025-07-17 14:55 [facility] NOT DETECTED (missing) Negative results in the setting ofa respiratory illness may be due to infection with pathogens not detected by this test, or lower respiratory tract infection that may not be detected by nasopharyngeal specimen. ADENOVIRUS - RESP PCR PANEL 2025-07-17 14:55 [facility] NOT DETECTED (missing) YES Negative results in the setting ofa respiratory illness may be due to infection with pathogens not detected by this test, or lower respiratory tract infection that may not be detected by nasopharyngeal specimen. Social History date description facility
[2025-07-17 20:36] LABS: HCT - HEMATOCRIT 40.2 % (42.0-52.0); HGB - HEMOGLOBIN 12.7 g/dL (14.0-18.0); MEAN PLATELET VOLUME 8.7 fL (7.4-11.4); NRBC ABSOLUTE COUNT (AUTO) 0.00 x10^3/uL; NUCLEATED RED BLOOD CELLS AUTO 0.0 /100WBC; PLT - PLATELET COUNT 164 10^3/uL (130-450); RED CELL DISTRIBUTION WIDTH 14.4 % (12.0-15.0)
--- NOTE | 2025-07-17 20:36 | CT Report ---
PROCEDURE: CT Head W/O Stroke Protocol INDICATIONS: R sided facial droop TECHNIQUE: Noncontrast angled axial sections acquired from the foramen magnum to the vertex, with coronal reformats. For radiation dose reduction, the following was used: automated exposure control, adjustment of mA and/or kV according to patient size. COMPARISON: 06/10/2025 FINDINGS: Image quality: Diagnostic CSF spaces: Basal cisterns are patent. Lateral ventricles are symmetric. Volume: Vascular calcifications. 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 Volume loss is present. These findings are mild to moderate. Brain: No intracranial hemorrhage. Diaz-white differentiation is grossly maintained. Possible old right frontal infarct. Craniofacial structures: No significant paranasal sinus opacity. IMPRESSION: No acute hemorrhage. Possible old right frontal infarct. Consider MRI if there is high concern for acute infarct. Called to ordering physician at ED. This study fulfills neurological imaging criteria for inclusion or exclusion of acute stroke therapies based on available published neurological imaging guidelines. Reviewed by: Andreas Oliva MD on 07/17/2025 8:33 PM PST Approved by: Andreas Oliva MD on 07/17/2025 8:33 PM PST Station ID: [id number]
[2025-07-17 20:43] LABS: INR 1.3 (0.8-1.2); PT - PROTHROMBIN TIME 14.8 secs (9.9-12.6)
--- NOTE | 2025-07-17 20:43 | CT Report ---
PROCEDURE: CT Angio Head/Neck INDICATIONS: R sided facial droop CONTRAST: [id number] 80ML TECHNIQUE: After the administration of intravenous contrast, images were acquired from the aortic arch through the [place] of [place]. 3-dimensional cztkraf-ohxbqsbnp-bjzwehzand (MIP) and volume rendering reformats were acquired of the central intracranial vasculature and neck separately. COMPARISON: 08/23/2023 FINDINGS: Image quality: Diagnostic Head angiography Anterior circulation: ICAs: Moderate degree of bilateral cavernous and supraclinoid calcifications. 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 Ascending aortic postsurgical changes. CCAs: Mild calcifications ICA origins (by NASCET criteria): Mild to moderate calcifications bilaterally, with less than 50% narrowing ICAs: Patent ECAs: origins are patent. Vertebral arteries: Mild left and moderate right vertebral origin calcifications. Cervical segments appear patent. Soft tissues: Unremarkable Lung apices: No apical pneumothorax. Partially seen cardiac electrode leads. Partially seen sternotomy wires. Partially seen coronary calcifications. Bones: There are diffuse degenerative osseous changes IMPRESSION: No large vessel occlusion or high-grade stenosis. Mild to moderate intracranial and extracranial calcifications, most significant at the right vertebral origin and bilateral cavernous ICAs. If there is high concern for infarct, consider MRI. Dilated mid ascending aorta measuring 4.5 cm. Other findings above. The estimate of stenosis included in the report of the imaging study was calculated using the NASCET method Reviewed by: Andreas Oliva MD on 07/17/2025 8:40 PM PST Approved by: Andreas Oliva MD on 07/17/2025 8:40 PM PST Station ID: [id number]
[2025-07-17 20:52] LABS: ALT ALANINE AMINOTRANSFERASE 21.0 IU/L (10-60); AST ASPARTATE AMINOTRANSFERASE 18.0 IU/L (10-42); BUN - BLOOD UREA NITROGEN 32.0 mg/dL (6-20); CARBON DIOXIDE - CO2 29.0 mmol/L (21-32); CREATININE 1.1 mg/dL (0.6-1.3); GFR - MDRD 63.0 (>89)
[2025-07-17] MEDS: ASPIRIN EC 81 MG TABLET PO STA ×2 (20:55→21:23)
[2025-07-17] MEDS ORDERED: ONDANSETRON 4 MG/2 ML VIAL IVP PRN (22:34)
[2025-07-17] MEDS ORDERED: SODIUM CHLORIDE FLUSH 0.9% 10 ML SYRINGE IVP PRN (22:34)
[2025-07-17] MEDS ORDERED: ACETAMINOPHEN 325 MG TABLET PO PRN (22:34)
--- NOTE | 2025-07-17 23:19 | HISTORY & PHYSICAL EXAMINATION ---
Chief Complaint Chief Complaint Chief Complaint: weakness History of Present Illness Admitted From Admitted From:: Home History Obtained From Records Reviewed: Yes History obtained from: ER MD, Patient and Exam Limitations: telemedicine History of Present Illness HPI Comment/Other: 89-year-old male presents to the emergency department with a right sided facial droop. noticed this at 5 PM. Unclear when the last known normal was. He reportedly was seen in the emergency department earlier today and arrived home around 330. EMS did not ask when the last seen normal was, they state that the states she noticed it at 5. Patient used to work in [employer], had ulcer in his leg, overalldoing well able to move all 4 ext in er, passed bedside swallow screen in ER, has facial droop, no pain, no headache, no N/v/d, no fever, no other complaints. at bedside states he was weak the whole day, we discussed code status and ACP, patient expresses desire to be full code. 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 (Acute) Weakness (Acute) Fall (Acute) Acute pain of right hip (Acute) Closed head injury (Acute) Impacted cerumen, left ear (Acute) Bladder spasm (Acute) Anticoagulant long-term use (Acute) Hematuria (Acute) Complication, blocked Gurrol[place] catheter (Acute) Urinary tract infection (Acute) Urinary retention (Acute) Visit for suture removal (Acute) Open fracture of phalanx of finger of right hand (Acute) Subungual hematoma (Acute) Finger laceration (Acute) Postoperative heart failure following cardiac surgery (Acute) Dyspnea (Acute) Congestive heart failure (Acute) Pain at surgical incision (Acute) Medical History Medical History No pertinent past medical history Social History Social History Do you feel safe in your home environment?: Yes History of physical, verbal, emotional, or financial abuse?: No Frequency: Occasional POLST POLST CPR Status: Attempt Resuscitation (CPR) (Discussed with patient and his ) Level of Medical Intervention: Full Treatment Meds/Allgy Home Medications Ambulatory Orders Medication Instructions Recorded Confirmed atorvastatin 20 mg tablet 20 mg PO DAILY 02/03/1506/26 metformin 500 mg tablet 2,000 mg PO BID 09/09/17 amiodarone 200 mg tablet 200 mg PO HS 08/28/24 atorvastatin 40 mg tablet 80 mg PO DAILY 08/28/2406/26 carvedilol 12.5 mg tablet 25 mg PO BID 08/28/24 empagliflozin 25 mg tablet 25 mg PO QAM 08/28/2407/17 (Jardiance) finasteride 5 mg tablet 5 mg PO DAILY 08/28/2407/17 losartan 25 mg tablet 25 mg PO QDAY 08/28/2407/17 multivitamin 1 tab PO QAM 08/28/24 potassium chloride 10 mEq 10 meq PO BID 08/28/2407/17 tablet,extended release spironolactone 25 mg tablet 12.5 mg PO DAILY 08/28/24 07/17/25 torsemide 10 mg tablet 20 mg PO DAILY 08/28/2406/26 trazodone 50 mg tablet 50 mg PO HS 08/28/24 5 cholecalciferol (vitamin D3) 50 50 mcg PO DAILY 07/17/25 mcg (2,000 unit) tablet (D3 DOTS) dabigatran etexilate 150 mg capsule 150 mg PO BID 06/2607/17/25 ferrous sulfate 325 mg (65 mg 325 mg PO DAILY 07/17/25 07/17/25 iron) tablet (Feosol) Allergies Allergies Allergy/AdvReac Type Severity Reaction Status Date / Time No Known Drug Allergies Allergy Verified 07/17/25 20:35 Prior Level of Functionality: Limited secondary to leg ulcers Exam Exam Vital Signs: Vital Signs x48h Temp Pulse Resp BP Pulse Ox 07/17/25 22:35 64 19 140/75 H 93 07/17/25 22:21 65 14 134/83 H 96 07/17/25 22:05 65 24 139/82 H 94 07/17/25 21:51 65 14 142/79 H 90 L 07/17/25 21:35 65 14 153/88 H 92 07/17/25 21:20 65 21 148/74 H 95 07/17/25 21:05 65 13 135/72 H 94 07/17/25 20:56 64 19 138/103 H 98 07/17/25 20:35 64 22 138/67 H 93 07/17/25 20:18 60 12 147/83 H 93 07/17/25 20:09 36.7 C 64 19 134/81 H 98 Constitutional no apparent distress, average body habitus and alert HENMT normocephalic facial droop present Eyes left eye smaller than right eye unable to open completely Neck/C-Spine visual inspection normal Chest inspection of chest normal Respiratory normal respiratory effort, no retractions and no use of accessory muscles Gastrointestinal abdomen normal to inspection Extremities normal to inspection Neurology facial droop present moving all 4 ext Psychiatry AOA x 3 Sepsis Event Note (H) Evaluation Current Stage of Sepsis: Ruled out Conclusion/Plan Problem List (1) 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 PT/OT eval, passed swallow eval, telestroke to follow in am, already patient discussed from ER Hold Pradaxa, started on ASA and statins, repeat CT in 24 hours (2) Weakness: Plan: pt/ot (3) Congestive heart failure: Plan: [facility] insitu, cant do MRI, currently in NSR Plan DVT prophylaxis REsume home meds Lab Results Lab results reviewed: Yes 07/17/25 20:26 07/17/25 20:26 Diagnostic Imaging Results Diagnostic Imaging Results: positive Prelim report reviewed EKG Results EKG Findings: SR RBBB Core Measures DVT/VTE - Prophylaxis VTE/DVT Device ordered at admit?: Yes Stroke - Rehab Assessment Rehab services assessment to be ordered?: Yes Telemedicine Consult Details Provider Location & Consult Time Telemedicine consultation conducted via videoconferencing?: Yes List names and roles of persons who participated in consult:: Patient and , RN Telemedicine provider location:: [place] Time Telemedicine consult began:: 10:30 Time Telemedicine consult completed:: 11:30
--- OUTSIDE RECORDS SUMMARY | 2025-07-17 23:50 | EXTERNAL MEDICAL SUMMARY RPT | Continuity of Care Document ---
Author Organization [facility] Address [address] [place] [id number] Phone Allergies and Intolerances date description facility reaction severity 2023-08-23 10:00 [id number]^No Known Drug Allergies^^No Known Drug Allergies^^[facility] 2025-07-17 10:00 [id number]^No Known Drug Allergies^^No Known Drug Allergies^^allergy.id [facility] (no reaction) (no severity) Problems date description facility 2025-06-12 10:46 Headache, unspecified [facility] ealt 2025-06-12 10:46 Unspecified injury of head, ini tial encounter [facility] 2025-07-12 14:24 Local infection of t he skin and subcutaneous tissue, [facility] 2025-07-12 14:24 Other injury of unsp ecified body region, initial encounter [facility] 2025-07-12 14:30 Local infection of t he skin and subcutaneous tissue, [facility] 2025-07-12 14:30 Other injury of unsp ecified body region, initial encounter [facility] 2025-07-13 11:35 Local infection of t he skin and subcutaneous tissue, [facility] 2025-07-13 11:35 Other injury of unsp ecified body region, initial encounter [facility] Results/Labs test date facility value unit notes Result panel 1 Gram Stain 2025-06-28 20:48 [facility] (missing) (cedric ng) (missing) White blood cells 2025-06-28 20:48 [facility] No WBC seen (missing) (missing ) No Organism Seen 2025-06-28 20:48 [facility] No o rganisms seen (missing) (missing) Result panel 2 Gram Stain 2025-06-29 08:42 [facility] (missing) (cedric ng) (missing) White blood cells 2025-06-29 08:42 [facility] No WBC se en (missing) (missing) No Organism Seen 2025-06-29 08:42 [facility] No o rganisms seen (missing) (missing) Anaerobic Culture 2025-06-29 08:42 [facility] Malinda t not performed (missing) (missing) Result panel 3 Gram Stain 2025-06-29 10:44 [facility] (missing) (missing) (missing) ORGANISM 2025-06-29 10:44 [facility] GPCGram positive cocci (missing) (missing) Action to follow 2025-06-29 10:44 [facility] Identification and Sensitivity to Follow (missing) (missing) Quantity of Growth 2025-06-29 10:44 [facility] LIGHT (missing) (missing) White blood cells 2025-06-29 10:44 [facility] No WBC seen (missing) (missing) No Organism Seen 2025-06-29 10:44 [facility] No organisms seen (missing) (missing) Anaerobic Culture 2025-06-29 10:44 [facility] Test not performed (missing) (missing) Result panel 4 Aerobic Culture for wounds 2025-06-30 08:17 [facility] (missing) (missing) (missing) Gram Stain 2025-06-30 08:17 [facility] (missing) (missing) (missing) Gentamicin 2025-06-30 08:17 [facility] >=16 (missing) (missing) Tetracycline 2025-06-30 08:[address] [place] [address] >=16 (missing) (missing) Trimethoprim/Sulfa methoxazole 2025-06-30 08:17 [facility] >=320 (missing) (missing) Oxacillin Steven 2025-06-30 08:17 [facility] >=4 (missing) (missing) Ciprofloxacin 2025-06-30 08:[address] [place] [address] >=8 (missing) (missing) Erythromycin 2025-06-30 08:17 [facility] <=0.25 (missing) (missing) Rifampin 2025-06-30 08:17 [facility] <=0.5 (missing) (missing) Daptomycin 2025-06-30 08:17 [facility] 1 (missing) (missing) Vancomycin 2025-06-30 08:17 [facility] 1 (missing) (missing) Linezolid 2025-06-30 08:17 [facility] 2 (missing) (missing) Moxifloxacin 2025-06-30 08:17 [facility] 2 (missing) (missing) Levofloxacin 2025-06-30 08:17 [facility] 4 (missing) (missing) Doxycycline 2025-06-30 08:17 [facility] 8 (missing) (missing) Aerobic Culture for wounds 2025-06-30 08:17 [facility] Based on resistance to oxacillin this isolate would be (missing) (missing) Quantity of Growth 2025-06-30 08:[address] [place] [address] LIGHT (missing) (missing) ORGANISM 2025-06-30 08:17 [facility] MRSAMethicillin Resis Staph Aureus (missing) (missing) Action to follow 2025-06-30 08:[address] [place] [address] No Further Workup (missing) (missing) White blood cells 2025-06-30 08:17 [facility] No WBC seen (missing) (missing) No Organism Seen 2025-06-30 08:[address] [place] [address] No organisms seen (missing) (missing) Aerobic Culture for wounds 2025-06-30 08:17 [facility] Routine testing of other penicillins, beta-lactam/beta (missing) (missing) Anaerobic Culture 2025-06-30 08:17 [facility] Test not performed (missing) (missing) MRSA? 2025-06-30 08:[address] [place] [address] YES (missing) (missing) Aerobic Culture for wounds 2025-06-30 08:[address] [place] [address] carbapenems is not advised by CLSI Standards. (missing) (missing) Aerobic Culture for wounds 2025-06-30 08:[address] [place] [address] lactamase inhibitor combinations, cephalosporins, and (missing) (missing) Aerobic Culture for wounds 2025-06-30 08:[address] [place] [address] resistant to all formulary beta-lactam antimicrobial agents. (missing) (missing) Result panel 5 Aerobic Culture for wounds 2025-07-03 08:57 [facility] (missing) (missing) (missing) Gram Stain 2025-07-03 08:[address] [place] [address] (missing) (missing) (missing) Gentamicin 2025-07-03 08:57 [facility] >=16 (missing) (missing) Tetracycline 2025-07-03 08:[address] [place] [address] >=16 (missing) (missing) Trimethoprim/Sulfa methoxazole 2025-07-03 08:57 [facility] >=320 (missing) (missing) Oxacillin Steven 2025-07-03 08:[address] [place] [address] >=4 (missing) (missing) Ciprofloxacin 2025-07-03 08:[address] [place] [address] >=8 (missing) (missing) Erythromycin 2025-07-03 08:[address] [place] [address] <=0.25 (missing) (missing) Rifampin 2025-07-03 08:[address] [place] [address] <=0.5 (missing) (missing) Daptomycin 2025-07-03 08:[address] [place] [address] 1 (missing) (missing) Vancomycin 2025-07-03 08:57 [facility] 1 (missing) (missing) Linezolid 2025-07-03 08:[address] [place] [address] 2 (missing) (missing) Moxifloxacin 2025-07-03 08:[address] [place] [address] 2 (missing) (missing) Levofloxacin 2025-07-03 08:[address] [place] [address] 4 (missing) (missing) Doxycycline 2025-07-03 08:[address] [place] [address] 8 (missing) (missing) Aerobic Culture for wounds 2025-07-03 08:[address] [place] [address] Based on resistance to oxacillin this isolate would be (missing) (missing) Quantity of Growth 2025-07-03 08:[address] [place] [address] LIGHT (missing) (missing) ORGANISM 2025-07-03 08:[address] [place] [address] MRSAMethicillin Resis Staph Aureus (missing) (missing) Action to follow 2025-07-03 08:57 [facility] No Further Workup (missing) (missing) White blood cells 2025-07-03 08:57 [facility] No WBC seen (missing) (missing) No Organism Seen 2025-07-03 08:[address] [place] [address] No organisms seen (missing) (missing) Aerobic Culture for wounds 2025-07-03 08:[address] [place] [address] Routine testing of other penicillins, beta-lactam/beta (missing) (missing) Called To: 2025-07-03 08:[address] [place] [address] [facility] (missing) (missing) Anaerobic Culture 2025-07-03 08:[address] [place] [address] Test not performed (missing) (missing) MRSA? 2025-07-03 08:[address] [place] [address] YES (missing) (missing) Aerobic Culture for wounds 2025-07-03 08:[address] [place] [address] carbapenems is not advised by CLSI Standards. (missing) (missing) Aerobic Culture for wounds 2025-07-03 08:[address] [place] [address] lactamase inhibitor combinations, cephalosporins, and (missing) (missing) Aerobic Culture for wounds 2025-07-03 08:57 [facility] resistant to all formulary beta-lactam antimicrobial agents. (missing) (missing) Result panel 6 Basophils Percent Auto 2025-07-12:22 [facility] 0.9 % (missing) Basophils Absolute Auto 2025-07-12 15:[address] [place] [address] 100 /ul (missing) Lymphocytes Percent Auto 2025-07-12 15:[address] [place] [address] 11 .6 % (missing) Hemoglobin 2025-07-12 15:[address] [place] [address] 13.7 g/dl (missing) Red Cell Distribution Width 2025-07-12 15:[address] [place] [address] 15.0 % (missing) Platelet Count 2025-07-12 :[address] [place] [address] 227 x1 0 3/ul (missing) Eosinophils Percent Auto 2025-07-12 :[address] [place] [address] 3. 8 % (missing) Eosinophils Absolute Auto 2025-07-12 :[address] [place] [address] 3 00 /ul (missing) Mean Corpuscular Hemoglobin 2025-07-12 :[address] [place] [address] 31.1 pg (missing) Mean Corpuscular HGB Conc 2025-07-12 :[address] [place] [address] 3 3.4 % (missing) Red Blood Cell Count 2025-07-[address] [place] [address] 4.39 x10 6/ul (missing) Monocytes Absolute Auto 2025-07-12 15:22 [facility] 400 /ul (missing) Hematocrit 2025-07-12 :[address] [place] [address] 41.0 % (missing) Monocytes Percent Auto 2025-07-[address] [place] [address] 5.6 % (missing) Neutrophils Absolute Auto 2025-07-12 :[address] [place] [address] 6 100 /ul (missing) White Blood Cell Count 2025-07-12 :[address] [place] [address] 7.8 x10 3/ul (missing) Neutrophils Percent Auto 2025-07-12 :[address] [place] [address] 78 .1 % (missing) Lymphocytes Absolute Auto 2025-07-[address] [place] [address] 9 00 /ul (missing) Mean Corpuscular Volume 2025-07-[address] [place] [address] 93. 3 fl (missing) Result panel 7 Estimated Glomerular Filt Rate 2025-07-12 15:38 [facility] > 60 ml/min Reported eGFR is based the CKD-EPI 2020 equation that does not use a race coefficient. An eGFR below 60 mL/min/1.73m2 suggests that some kidney damage has occurred, and indicative of chronic kidney disease if persisting greater than 3 months. An eGFR less than 15 is indicative of kidney failure. C-Reactive Protein Quant 2025-07-12 15:[address] [place] [address] < 0.5 mg/dl (missing) Bilirubin Total 2025-07-12 15:[address] [place] [address] 0.6 mg/dl (missing) Creatinine 2025-07-12 :[address] [place] [address] 1.10 mg/dl (missing) Albumin Globulin Ratio 2025-07-12 :[address] [place] [address] 1.4 (missing) (missing) Chloride 2025-07-12 15:[address] [place] [address] 105 mmol/l (missing) Glucose 2025-07-12 :[address] [place] [address] 110 mg/dl (missing) Alkaline Phosphatase 2025-07-12 :[address] [place] [address] 141 u/l (missing) Sodium 2025-07-12 :[address] [place] [address] 145 mmol/l (missing) BUN Creatinine Ratio 2025-07-12 :[address] [place] [address] 24.5 (missing) (missing) Alanine Aminotransferase 2025-07-12 :[address] [place] [address] 27 iu/l (missing) Blood Urea Nitrogen 2025-07-12 15:[address] [place] [address] 27 mg/dl (missing) Carbon Dioxide 2025-07-12 :[address] [place] [address] 27 mmol/l (missing) Globulin 2025-07-12 :[address] [place] [address] 3.4 g/dl (missing) Aspartate Aminotransferase 2025-07-12 :[address] [place] [address] 31 iu/l (missing) Potassium 2025-07-12 :[address] [place] [address] 4.1 mmol/l (missing) Albumin 2025-07-12 :[address] [place] [address] 4.6 g/dl (missing) Total Protein 2025-07-12 :[address] [place] [address] 8.0 g/dl (missing) Calcium 2025-07-12 :[address] [place] [address] 9.8 mg/dl (missing) Result panel 8 GLUCOSE, URINE (UA) 2025-07-17 12:[address] [place] [address] >=1000 mg/dl (missing) UROBILINOGEN,URI NE 2025-07-17 12:00 [facility] 0.2 (NORMAL) e.u./dl (missing) SPECIFIC GRAVITY,URINE 2025-07-17 [facility] 1.015 (missing) (missing) PH,URINE 2025-07-17: [facility] 5.5 ph (missing) CLARITY,URINE 2025-07-17:[address] [place] [address] CLEAR (missing) (missing) LEUKOCYTE ESTERASE, URINE 2025-07-17 [facility] NEGATIVE (missing) (missing) NITRITE,URINE 2025-07-17: [facility] NEGATIVE (missing) (missing) OCCULT BLOOD,URINE 2025-07-17: [facility] NEGATIVE (missing) (missing) BILIRUBIN,URINE 2025-07-17:[address] [place] [address] NEGATIVE (missing) Bilirubin can be influenced by color interference. Please correlate positive results with clinical presentation KETONES,URINE (UA) 2025-07-17 [facility] NEGATIVE mg/dl (missing) PROTEIN,URINE 2025-07-[address] [place] [address] NEGATIVE mg/dl (missing) UR CULTURE IF IND 2025-07-17 [facility] NOT INDICATED (missing) (missing) URINE MICROSCOPIC INDICATED? 2025-07-[address] [place] [address] NOT INDICATED (missing) (missing) COLOR,URINE 2025-07-17:[address] [place] [address] YELLOW (missing) URINE CATHETERIZED Result panel 9 PROCALCITONIN 2025-07-17 [facility] < 0.05 ng/ml PCT Concentration (n g/mL) [...] to 24hours. NUCLEATED RED BLOOD CELLS AUTO 2025-07-1736 [facility] 0.0 /100wbc (missing) NRBC ABSOLUTE COUNT (AUTO) 2025-07-17 12:[address] [place] [address] 0.00 x10 3/ul (missing) BASOPHILS # (AUTO) 2025-07-17 12:[address] [place] [address] 0.1 10 3/ul (missing) EOSINOPHILS # (AUTO) 2025-07-17 :[address] [place] [address] 0.2 10 3/ul (missing) MONOCYTES # (AUTO) 2025-07-17 12:[address] [place] [address] 0.4 10 3/ul (missing) BILIRUBIN,TOTAL 2025-07-17 :[address] [place] [address] 0.5 mg/dl As of January 2023 test ing method has changed, this may include reference ranges. LYMPHOCYTES # (AUTO) 2025-07-17 12:[address] [place] [address] 1.0 10 3/ul (missing) CREATININE 2025-07-17 :[address] [place] [address] 1.1 mg/dl As of January 2023 test ing method has changed, this may include reference ranges. ALBUMIN/GLOBULIN RATIO 2025-07-17 :[address] [place] [address] 1.4 (missin g) (missing) CALCIUM 2025-07-[address] [place] [address] 10.0 mg/dl As of January 2023 test ing method has changed, this may include reference ranges. CHLORIDE 2025-07-17 :[address] [place] [address] 104 mmol/l As of January 2023 test ing method has changed, this may include reference ranges. GLUCOSE 2025-07-[address] [place] [address] 106 mg/dl As of January 2023 test ing method has changed, this may include reference ranges. ALKALINE PHOSPHATASE 2025-07-17 :[address] [place] [address] 119 iu/l As of January 2023 test ing method has changed, this may include reference ranges. HGB - HEMOGLOBIN 2025-07-17 :[address] [place] [address] 12.3 g/dl (missing) RED CELL DISTRIBUTION WIDTH 2025-07-17 :[address] [place] [address] 14.4 % (missing) SODIUM 2025-07-17 :[address] [place] [address] 141 mmol/l (missing) AST ASPARTATE AMINOTRANSFERASE 2025-07-17 :[address] [place] [address] 15 iu/l As of January 2023 test ing method has changed, this may include reference ranges. PLT - PLATELET COUNT 2025-07-17 :[address] [place] [address] 158 10 3/ul (missing) LACTIC ACID, VENOUS 2025-07-17 :[address] [place] [address] 2.5 mmol/l N As of January 2023 te sting method has changed, this may include reference ranges. GLOBULIN 2025-07-17 12:[address] [place] [address] 2.9 g/dl (missing) ALT ALANINE AMINOTRANSFERASE 2025-07-17 :[address] [place] [address] 20 iu/l As of January 2023 test ing method has changed, this may include reference ranges. RED BLOOD COUNT 2025-07-17 12:[address] [place] [address] 3.99 10 6/ul (missing) CARBON DIOXIDE - CO2 2025-07-17 12:[address] [place] [address] 30 mmol/l As of January 2023 test ing method has changed, this may include reference ranges. MEAN CORPUSCULAR HEMOGLOBIN 2025-07-17 12:[address] [place] [address] 30.8 pg (missing) BUN - BLOOD UREA NITROGEN 2025-07-17 :[address] [place] [address] 31 mg/dl As of January 2023 test ing method has changed, this may include reference ranges. MEAN CORPUSCULAR HGB CONC 2025-07-17 12:[address] [place] [address] 31.1 g/dl (missing) HCT - HEMATOCRIT 2025-07-17 12:[address] [place] [address] 39.5 % (missing) ALBUMIN 2025-07-17 :[address] [place] [address] 4.1 g/dl As of January 2023 test ing method has changed, this may include reference ranges. POTASSIUM 2025-07-17 :[address] [place] [address] 4.3 mmol/l As of January 2023 test ing method has changed, this may include reference ranges. NEUTROPHILS # (AUTO) 2025-07-17 12:[address] [place] [address] 6.0 10 3/ul (missing) GFR - MDRD 2025-07-17 12:[address] [place] [address] 63 (anabela g) The IDMS-traceable MDRD Study Equation has [...] last updated September 2011. ANION GAP 2025-07-17 12:[address] [place] [address] 7.0 (missin g) (missing) TOTAL PROTEIN 2025-07-17 12:[address] [place] [address] 7.0 g/dl As of January 2023 test ing method has changed, this may include reference ranges. WHITE BLOOD COUNT 2025-07-17 12:[address] [place] [address] 7.7 x10 3/ul (missing) MEAN PLATELET VOLUME 2025-07-[address] [place] [address] 9.1 fl (missing) MEAN CORPUSCULAR VOLUME 2025-07-[address] [place] [address] 99.0 fl (missing) KETONES, SERUM (ACETEST) 2025-07-17 12:36 [facility] NEGATIVE (missin g) (missing) Result panel 10 SARS-CoV-2 -RESP PCR PANEL 2025-07-17 14:[address] [place] [address] NOT DETECTED (missing) A negative test result for this test indicates that SARS-CoV-2 RNA was not present in the specimen above the limit of detection. Testing performed on the [employer]elsion RP2.1 Panel, a multiplexed nucleic acid repiratory [...] virus. INFLUENZA A- RESP PCR PANEL 2025-07-17 14:[address] [place] [address] NOT DETECTED (missing) Influenza A including subtypes H1, H3, and H1-2009 not detected by the BioFire RP2.1 Panel, a multiplexed nucleic acid test intended for the simultaneous qualitative detection and differentiation of nucleic acids from multiple viral and bacterial respiratory organisms. B. PARAPERTUSSIS- RESP PCR CARABALLO 2025-07-17 14:55 [facility] NOT DETECTED (missing) Negative results for this organism do not preclude infection with this organism and may require additional laboratory testing (e.g., bacterial and viral culture, immunofluorescence , and radiography) when evaluating a patient with possible respiratory tract infection. B. PERTUSSIS- RESP PCR PANEL 2025-07-17 14:[address] [place] [address] NOT DETECTED (missing) Negative results for this organism do not preclude infection with this organism and may require additional laboratory testing (e.g., bacterial and viral culture, immunofluorescence , and radiography) when evaluating a patient with possible respiratory tract infection. C. PNEUMONIAE- RESP PCR PANEL 2025-07-17 14:55 [facility] NOT DETECTED (missing) Negative results for this organism do not preclude infection with this organism and may require additional laboratory testing (e.g., bacterial and viral culture, immunofluorescence , and radiography) when evaluating a patient with possible respiratory tract infection. M. PNEUMONIAE- RESP PCR PANEL 2025-07-17 14:55 [facility] NOT DETECTED (missing) Negative results for this organism do not preclude infection with this organism and may require additional laboratory testing (e.g., bacterial and viral culture, immunofluorescence , and radiography) when evaluating a patient with possible respiratory tract infection. CORONAVIRUS 229E-RESP PCR 2025-07-17 14:55 [facility] NOT DETECTED (missing) Negative results in the setting ofa respiratory illness may be due to infection with pathogens not detected by this test, or lower respiratory tract infection that may not be detected by nasopharyngeal specimen. CORONAVIRUS HKU1-RESP PCR 2025-07-17 14:55 [facility] NOT DETECTED (missing) Negative results in the setting ofa respiratory illness may be due to infection with pathogens not detected by this test, or lower respiratory tract infection that may not be detected by nasopharyngeal specimen. CORONAVIRUS [id number]-[id number] PCR 2025-07-17 14:55 [facility] NOT DETECTED (missing) Negative results in the setting ofa respiratory illness may be due to infection with pathogens not detected by this test, or lower respiratory tract infection that may not be detected by nasopharyngeal specimen. CORONAVIRUS [id number] PCR 2025-07-17 14:55 [facility] NOT DETECTED (missing) Negative results in the setting ofa respiratory illness may be due to infection with pathogens not detected by this test, or lower respiratory tract infection that may not be detected by nasopharyngeal specimen. HUMAN METAPNEUMOVIRUS 2025-07-17 14:55 [facility] NOT DETECTED (missing) Negative results in the setting ofa respiratory illness may be due to infection with pathogens not detected by this test, or lower respiratory tract infection that may not be detected by nasopharyngeal specimen. INFLUENZA B - RESP PCR PANEL 2025-07-17 14:55 [facility] NOT DETECTED (missing) Negative results in the setting ofa respiratory illness may be due to infection with pathogens not detected by this test, or lower respiratory tract infection that may not be detected by nasopharyngeal specimen. PARAINFLUENZA VIRUS 1 2025-07-17 14:55 [facility] NOT DETECTED (missing) Negative results in the setting ofa respiratory illness may be due to infection with pathogens not detected by this test, or lower respiratory tract infection that may not be detected by nasopharyngeal specimen. PARAINFLUENZA VIRUS 2 2025-07-17 14:[address] [place] [address] NOT DETECTED (missing) Negative results in the setting ofa respiratory illness may be due to infection with pathogens not detected by this test, or lower respiratory tract infection that may not be detected by nasopharyngeal specimen. PARAINFLUENZA VIRUS 3 2025-07-17 14:[address] [place] [address] NOT DETECTED (missing) Negative results in the setting ofa respiratory illness may be due to infection with pathogens not detected by this test, or lower respiratory tract infection that may not be detected by nasopharyngeal specimen. PARAINFLUENZA VIRUS 4 2025-07-17 14:[address] [place] [address] NOT DETECTED (missing) Negative results in the setting ofa respiratory illness may be due to infection with pathogens not detected by this test, or lower respiratory tract infection that may not be detected by nasopharyngeal specimen. RHINOVIRUS/ENTEROVI TOMMY 2025-07-17 14:55 [facility] NOT DETECTED (missing) Negative results in the setting ofa respiratory illness may be due to infection with pathogens not detected by this test, or lower respiratory tract infection that may not be detected by nasopharyngeal specimen. RSV- RESP PCR PANEL 2025-07-17 14:55 [facility] NOT DETECTED (missing) Negative results in the setting ofa respiratory illness may be due to infection with pathogens not detected by this test, or lower respiratory tract infection that may not be detected by nasopharyngeal specimen. ADENOVIRUS - RESP PCR PANEL 2025-07-17 14:[address] [place] [address] NOT DETECTED (missing) YES Negative results in the setting ofa respiratory illness may be due to infection with pathogens not detected by this test, or lower respiratory tract infection that may not be detected by nasopharyngeal specimen. Result panel 11 NUCLEATED RED BLOOD CELLS AUTO 2025-07-17 20:26 [facility] 0.0 /100wbc (missing) NRBC ABSOLUTE COUNT (AUTO) 2025-07-17 20:26 [facility] 0.00 x10 3/ul (missing) BASOPHILS # (AUTO) 2025-07-17 20:[address] [place] [address] 0.1 10 3/ul (missing) EOSINOPHILS # (AUTO) 2025-07-17 20:26 [facility] 0.2 10 3/ul (missing) MONOCYTES # (AUTO) 2025-07-17 20:[address] [place] [address] 0.5 10 3/ul (missing) BILIRUBIN,TOTAL 2025-07-17 20:[address] [place] [address] 0.6 mg/dl As of January 2023 testing method has changed, this may include reference ranges. LYMPHOCYTES # (AUTO) 2025-07-17 20:[address] [place] [address] 1.0 10 3/ul (missing) CREATININE 2025-07-17 20:[address] [place], [place] [address] 1.1 mg/dl As of January 2023 testing method has changed, this may include reference ranges. INR 2025-07-17 20:[address] [place] [address] 1.3 (missing) Oral Anticoagulant Indication INR range Venous Thrombosis, P.E. 2.0 - 3.0 Mechanical Valve 2.5 - 3.5 ALBUMIN/GLOBULIN RATIO 2025-07-17 20:[address] [place] [address] 1.5 (missing) (missing) CHLORIDE 2025-07-17:[address] [place] [address] 103 mmol/l As of January 2023 testing method has changed, this may include reference ranges. ALKALINE PHOSPHATASE 2025-07-17:[address] [place] [address] 118 iu/l As of January 2023 testing method has changed, this may include reference ranges. HGB - HEMOGLOBIN 2025-07-17:[address] [place] [address] 12.7 g/dl (missing) GLUCOSE 2025-07-17 20:[address] [place] [address] 126 mg/dl As of January 2023 testing method has changed, this may include reference ranges. RED CELL DISTRIBUTION WIDTH 2025-07-17 20:[address] [place] [address] 14.4 % (missing) PT - PROTHROMBIN TIME 2025-07-17 20:[address] [place] [address] 14.8 secs (missing) SODIUM 2025-07-17 20:[address] [place] [address] 140 mmol/l (missing) PLT - PLATELET COUNT 2025-07-17 20:26 [facility] 164 10 3/ul (missing) AST ASPARTATE AMINOTRANSFERASE 2025-07-17 20:26 [facility] 18 iu/l As of January 2023 testing method has changed, this may include reference ranges. GLOBULIN 2025-07-17 20:[address] [place] [address] 2.8 g/dl (missing) ALT ALANINE AMINOTRANSFERASE 2025-07-17 20:[address] [place] [address] 21 iu/l As of January 2023 testing method has changed, this may include reference ranges. CARBON DIOXIDE - CO2 2025-07-17 20:[address] [place] [address] 29 mmol/l As of January 2023 testing method has changed, this may include reference ranges. MEAN CORPUSCULAR HEMOGLOBIN 2025-07-17 20:26 [facility] 31.2 pg (missing) MEAN CORPUSCULAR HGB CONC 2025-07-17 20:[address] [place] [address] 31.6 g/dl (missing) BUN - BLOOD UREA NITROGEN 2025-07-17 20:[address] [place] [address] 32 mg/dl As of January 2023 testing method has changed, this may include reference ranges. LIPASE 2025-07-17 20:[address] [place] [address] 38 u/l As of January 2023 testing method has changed, this may include reference ranges. POTASSIUM 2025-07-17:[address] [place] [address] 4.0 mmol/l As of January 2023 testing method has changed, this may include reference ranges. RED BLOOD COUNT 2025-07-17:[address] [place] [address] 4.07 10 6/ul (missing) ALBUMIN 2025-07-[address] 4.1 g/dl As of January 2023 testing method has changed, this may include reference ranges. HCT - HEMATOCRIT 2025-07-17 20:26 [facility] 40.2 % (missing) NEUTROPHILS # (AUTO) 2025-07-17 20:26 [facility] 6.0 10 3/ul (missing) TOTAL PROTEIN 2025-07-[address] [place] [address] 6.9 g/dl As of January 2023 testing method has changed, this may include reference ranges. GFR - MDRD 2025-07-17:[address] [place] [address] 63 (missing) The IDMS-traceable MDRD Study Equation has been [...] caring for patients older than 70. References: http://www.nkdep.[place].gov/lab-evaluat ion/gfr/creatinine -stand ardization, last updated September 2011. WHITE BLOOD COUNT 2025-07-17:[address] [place] [address] 7.8 x10 3/ul (missing) ANION GAP 2025-07-17 20:26 [facility] 8.0 (missing) (missing) MEAN PLATELET VOLUME 2025-07-17 20: [facility] 8.7 fl (missing) CALCIUM 2025-07-17: [facility] 9.6 mg/dl As of January 2023 testing method has changed, this may include reference ranges. MEAN CORPUSCULAR VOLUME 2025-07-17: [facility] 98.8 fl (missing) Social History date description facility
[2025-07-18] MEDS: SODIUM CHLORIDE 0.9% 1,000 ML IV SCH (00:30)
[2025-07-18] MEDS: SODIUM CHLORIDE FLUSH 0.9% 10 ML SYRINGE IVP SCH (01:07)
[2025-07-18] MEDS: FINASTERIDE 5 MG TABLET PO SCH (01:14)
[2025-07-18] MEDS: AMIODARONE 200 MG TABLET PO SCH (01:14)
[2025-07-18] MEDS ORDERED: INSULIN REGULAR, HUMAN 300 UNIT/3 ML PEN SUBQ SCH (08:00)
[2025-07-18] MEDS: INSULIN LISPRO 300 UNIT/3 ML PEN SUBQ SCH (08:52)
[2025-07-18] MEDS: ATORVASTATIN 40 MG TABLET PO SCH (09:05)
[2025-07-18] MEDS: EMPAGLIFLOZIN 25 MG TABLET PO SCH (09:05)
[2025-07-18] MEDS: FLUTICASONE NASAL SPRAY NAS SCH (09:05)
[2025-07-18] MEDS: INSULIN REGULAR, HUMAN 300 UNIT/3 ML PEN SUBQ SCH (11:06)
--- NOTE | 2025-07-18 12:05 | Speech Therapy Plan of Care ---
DIAGNOSIS Date of Service Date of Service: 07/18/25 Diagnosis: CEREBRAL INFRACTION MEDICAL/SURGICAL PAST HISTORY Past History Medical History (Updated 07/18/25 @ 03:15 by Aidee Matos RN) Chronic ulcer of left ankle Infection of wound due to methicillin resistant Staphylococcus aureus (MRSA) Left wrist effusion Cataract (lens) fragments in eye following cataract surgery, bilateral Anemia Arterial leg ulcer Ganglion of joint Arthropathy of ankle and foot Onychomycosis JAYNA (obstructive sleep apnea) Insomnia Lumbar spondylosis Spinal stenosis of lumbar region without neurogenic claudication Vitamin B12 deficiency Polyneuropathy GERD (gastroesophageal reflux disease) Diabetes mellitus Diverticulosis PAD (peripheral artery disease) Cardiomyopathy SSS (sick sinus syndrome) Aortic valve stenosis ICD (implantable cardioverter-defibrillator) in place CAD (coronary artery disease) Aortic ectasia HLD (hyperlipidemia) ADHD (attention deficit hyperactivity disorder) Hard of hearing Acquired bilateral ankle pronation Skin cancer Pacemaker Hypertension Afib Non-STEMI (non-ST elevated myocardial infarction) No pertinent past medical history Surgical History (Updated 07/18/25 @ 03:15 by Aidee Matos RN) History of vasectomy History of prostate surgery History of cystoscopy History of heart valve replacement Hx of CABG Status post surgery of both feet History of left ankle joint replacement Hx of tonsillectomy History of open heart surgery History of right hip replacement SPEECH ASSESSMENT Assessment: History / Presentation: Pt is a pleasant 89-year-old male who presented to the ED with right-sided facial droop and was admitted for acute ischemic stroke. CT head (07/17) revealed no acute hemorrhage; possible old right frontal infarct. MRI recommended if concern for acute infarct remains. Please see chart for full history and work up. Pt seen alone, seated upright in bed, awaiting spouse. Alert, oriented, and able to provide history. At admission, pt reported facial droop, dysarthria, and word-finding difficulty, all of which he reports are resolving. Speech is currently clear and articulate. Pt endorses a history of dysphagia over the past year, particularly with thin liquids and dry/crunchy solids; onset unclear. Reports compensatory strategies including liquid wash with dry solids and avoidance of foods such as chips and nuts. Pt denies awareness of prior infarct. Oral Mechanism Exam: Mildly reduced right-sided labial retraction and agility. Very mild lingual deviation to the left. Otherwise WFL. PO Trials: Thin liquids (cup and straw), mildly thick liquids, moderately thick liquids, pudding, and solid textures administered. Pt demonstrated overt s/s of aspiration with thin liquids via cup and straw, suspected secondary to reduced oral control and premature spillage into the laryngeal vestibule prior to swallow initiation. Improved bolus control and swallow safety noted with thickened liquids; no coughing or overt s/s observed. Impression: Mildmoderate oropharyngeal dysphagia, primarily impacting thin liquids. Recommendations: Begin IDDSI Level 6 (Soft & Bite-Sized) solids and mildly (Sparkman) thick liquids Aspiration precautions & aggressive oral care Recommend outpatient speech therapy upon discharge Diet and swallow recommendations reviewed with pt, and new diet/aspiration precautions posted at bedside. Written education provided regarding IDDSI Level 6 diet and SimplyThick preparation. Sample SimplyThick gel packets provided for interim home use. SPEECH SHORT TERM GOALS Dysphagia: ST short term goal: Patient will safely consume the least restrictive diet and liquid level, as determined by ongoing swallow assessment, without overt s/s aspiration or pulmonary compromise, in order to maintain adequate nutrition and hydration
--- NOTE | 2025-07-18 12:25 | PT Plan of Care ---
PT Plan of Care Physical Therapy Plan of Care: Diagnosis Diagnosis acute ischemic infarct c R sided symptoms Referring Provider David Saleem Patient Status Inpatient Chief Complaint Chief Complaint weakness, recent fall Onset of Chief Complaint EMERGENCY MANAGER 06/10/25 Medical History (Updated 07/18/25 @ 03:15 by Aidee Matos, RN) Chronic ulcer of left ankle Infection of wound due to methicillin resistant Staphylococcus aureus (MRSA) Left wrist effusion Cataract (lens) fragments in eye following cataract surgery, bilateral Anemia Arterial leg ulcer Ganglion of joint Arthropathy of ankle and foot Onychomycosis JAYNA (obstructive sleep apnea) Insomnia Lumbar spondylosis Spinal stenosis of lumbar region without neurogenic claudication Vitamin B12 deficiency Polyneuropathy GERD (gastroesophageal reflux disease) Diabetes mellitus Diverticulosis PAD (peripheral artery disease) Cardiomyopathy SSS (sick sinus syndrome) Aortic valve stenosis ICD (implantable cardioverter-defibrillator) in place CAD (coronary artery disease) Aortic ectasia HLD (hyperlipidemia) ADHD (attention deficit hyperactivity disorder) Hard of hearing Acquired bilateral ankle pronation Skin cancer Pacemaker Hypertension Afib Non-STEMI (non-ST elevated myocardial infarction) No pertinent past medical history Surgical History (Updated 07/18/25 @ 03:15 by Aidee Matos, JOSE DANIEL) History of vasectomy History of prostate surgery History of cystoscopy History of heart valve replacement Hx of CABG Status post surgery of both feet History of left ankle joint replacement Hx of tonsillectomy History of open heart surgery History of right hip replacement Balance/ Functional Results Sitting Balance Fair Standing Balance Poor Tinetti Composite Score ( 11 Balance + Gait) Tinetti Assessment High Fall Risk Interpretation Assessment Assessment Pt is a pleasant 89yo M referred for PT eval d/t acute ischemic CVA with R sided deficits. Per CT possible "old R frontal infarct" no acute findings. Of note pt came to ED on 06/10/25 s/p fall with head strike, imaging negative for acute injury at that time as well. Please see medical record for further hx. Cleared for eval by hospitalist. Upon PT eval, pt A&Ox4 and agreeable to participate. Benefits from clear 3- 5 step instructions and follows visual cues more easily than verbal. Mild to moderate incoordination of RLE/RUE > L side. R sided weakness > L with overall 3+/5 RUE/RLE MMT. Notable R trunk lean in seated and unable to correct despite multimodal cueing. Requires multiple attempts and modAx1 for STS with FWW. High fall risk per mobility assessment and Tinetti score of 06/22. Given above impairments, pt will benefit from continued skilled PT to improve midline balance and progress gait training. When medically clear, PT rec dc to SNF for continued rehab as he is far below Sindy baseline. Goals Improve bed mobility to: Contact Guard Improve supine to sit to: Contact Guard Improve sit to stand to: Minimal Assist Improve pivot transfer ability Contact Guard to: Improve sit to supine to: Minimal Assist Improve gait ability to: Min A Assistive Device Used: Front Wheeled Walker Improve Sitting Balance to: Good Improve Standing Balance to: Fair PT Plan of Care Duration 4-6x/wk during acute stay Discharge Recommendations Discharge Location [facility] Equipment Recommended Front wheeled walker Transport Needs at Discharge Wheelchair van
[2025-07-18] MEDS: ASPIRIN EC 81 MG TABLET PO SCH (15:41)
--- NOTE | 2025-07-18 15:41 | PROVIDER PROGRESS NOTE ---
Subjective Prog Note Date Prog Note Date: 07/18/25 Subjective Pt reports feeling: No change Current Medications Current Medications Current Medications: Current Medications Generic Name Dose Route Start Last Admin Trade Name Freq PRN Reason Stop Dose Admin Acetaminophen 650 mg 07/17/25 22:34 Acetaminophen 325 Mg Tablet PO Q4HR PRN Pain 1 to 4, or Fever Amiodarone HCl 200 mg 07/17/25 23:00 07/18/25 01:14 Amiodarone 200 Mg Tablet PO 200 mg HS NIRAJ Administration Aspirin 81 mg 07/18/25 15:15 Aspirin Ec 81 Mg Tablet PO DAILY NIRAJ Atorvastatin Calcium 80 mg 07/18/25 09:00 07/18/25 09:05 Atorvastatin 40 Mg Tablet PO 80 mg DAILY NIRAJ Administration Carvedilol 12.5 mg 07/17/25 23:00 07/18/25 09:05 Carvedilol 12.5 Mg Tablet PO 12.5 mg BID NIRAJ Administration Empagliflozin 25 mg 07/18/25 09:00 07/18/25 09:05 Empagliflozin 25 Mg Tablet PO 25 mg DAILY NIRAJ Administration Finasteride 5 mg 07/17/25 23:00 07/18/25 01:14 Finasteride 5 Mg Tablet PO 5 mg HS NIRAJ Administration Fluticasone Propionate 1 sprays 07/18/25 09:00 07/18/25 09:05 Fluticasone Nasal Hunter SHANNON 1 applic DAILY NIRAJ Administration Insulin Human Lispro 1 - 5 unit 07/18/25 08:00 07/18/25 13:19 Insulin Lispro 300 Unit/3 Ml Pen SUBQ 1 unit 0800,1200,1700,2100 NIRAJ Administration Protocol Ondansetron HCl 4 mg 07/17/25 22:34 Ondansetron 4 Mg/2 Ml Vial IVP Q6HR PRN Nausea / Vomiting Sodium Chloride 10 ml 07/17/25 22:34 Sodium Chloride Flush 0.9% 10 Ml Syringe IVP PRN PRN NEEDED PER PROVIDER ORDERS Sodium Chloride 10 ml 07/18/25 01:00 07/18/25 09:06 Sodium Chloride Flush 0.9% 10 Ml Syringe IVP 10 ml 0100,0900,1700 NIRAJ Administration Objective Vital Signs/Intake & Output Reviewed Vital Signs: Yes Vital Signs: Vital Signs x48h Temp Pulse Resp BP Pulse Ox 07/18/25 13:17 97.7 F 67 18 112/68 96 07/18/25 08:13 97.5 F L 66 18 138/72 H 98 Intake & Output: Intake & Output 07/15/25 07/16/25 07/17/25 07/18/25 23:59 23:59 23:59 23:59 Intake Total 340 / 340 Output Total 1125 / 1125 Balance -785 / -785 Weight (kg) 95.254 kg 92.5 kg Objective General Appearance: positive No acute distress and Alert Eyes Bilateral: positive Normal inspection Respiratory: positive Chest non-tender and No respiratory distress Cardiovascular: positive Irregularly irregular Abdomen: positive Non-tender Skin: positive Other (Wound on left foot, dressing in place) Neurologic/Psychiatric: positive Oriented x3 and Other (Trace right sided facial droop, left pronator drift at 10 seconds) Lab Results 07/17/25 20:26 07/17/25 20:26 Other Labs: Lab Results x24hrs 07/18/25 07/18/25 07/18/25 Range/Units 11:22 08:02 02:00 WBC (4.8-10.8) x10^3/uL RBC (4.70-6.10) 10^6/uL Hgb (14.0-18.0) g/dL Hct (42.0-52.0) % MCV (80.0-94.0) fL MCH (27.0-31.0) pg MCHC (32.0-36.0) g/dL RDW (12.0-15.0) % Plt Count (130-450) 10^3/uL MPV (7.4-11.4) fL Neut # (Auto) (1.5-6.6) 10^3/uL Lymph # (Auto) (1.5-3.5) 10^3/uL Rogers # (Auto) (0.0-1.0) 10^3/uL Eos # (Auto) (0.0-0.7) 10^3/uL Baso # (Auto) (0.0-0.1) 10^3/uL Absolute Nucleated RBC x10^3/uL Nucleated RBC % /100WBC PT (9.9-12.6) secs INR (0.8-1.2) Sodium (135-145) mmol/L Potassium (3.5-4.5) mmol/L Chloride (101-111) mmol/L Carbon Dioxide (21-32) mmol/L Anion Gap (6-13) BUN (6-20) mg/dL Creatinine (0.6-1.3) mg/dL Estimated GFR (MDRD) (>89) Glucose (74-104) mg/dL POC Whole Bld Glucose 154 99 (70-100) mg/dL Calcium (8.5-10.3) mg/dL Total Bilirubin (0.2-1.0) mg/dL AST (10-42) IU/L ALT (10-60) IU/L Alkaline Phosphatase (42-121) IU/L Total Protein (6.4-8.9) g/dL Albumin (3.2-5.5) g/dL Globulin (2.1-4.2) g/dL Albumin/Globulin Ratio (1.0-2.2) Lipase (11-82) U/L Nasal Screen MRSA (PCR) POSITIVE A* (NEGATIVE) 07/17/25 Range/Units 20:26 WBC 7.8 (4.8-10.8) x10^3/uL RBC 4.07 L (4.70-6.10) 10^6/uL Hgb 12.7 L (14.0-18.0) g/dL Hct 40.2 L (42.0-52.0) % MCV 98.8 H (80.0-94.0) fL MCH 31.2 H (27.0-31.0) pg MCHC 31.6 L (32.0-36.0) g/dL RDW 14.4 (12.0-15.0) % Plt Count 164 (130-450) 10^3/uL MPV 8.7 (7.4-11.4) fL Neut # (Auto) 6.0 (1.5-6.6) 10^3/uL Lymph # (Auto) 1.0 L (1.5-3.5) 10^3/uL Rogers # (Auto) 0.5 (0.0-1.0) 10^3/uL Eos # (Auto) 0.2 (0.0-0.7) 10^3/uL Baso # (Auto) 0.1 (0.0-0.1) 10^3/uL Absolute Nucleated RBC 0.00 x10^3/uL Nucleated RBC % 0.0 /100WBC PT 14.8 H (9.9-12.6) secs INR 1.3 H (0.8-1.2) Sodium 140 (135-145) mmol/L Potassium 4.0 (3.5-4.5) mmol/L Chloride 103 (101-111) mmol/L Carbon Dioxide 29 (21-32) mmol/L Anion Gap 8.0 (6-13) BUN 32 H (6-20) mg/dL Creatinine 1.1 (0.6-1.3) mg/dL Estimated GFR (MDRD) 63 L (>89) Glucose 126 H (74-104) mg/dL POC Whole Bld Glucose (70-100) mg/dL Calcium 9.6 (8.5-10.3) mg/dL Total Bilirubin 0.6 (0.2-1.0) mg/dL AST 18 (10-42) IU/L ALT 21 (10-60) IU/L Alkaline Phosphatase 118 (42-121) IU/L Total Protein 6.9 (6.4-8.9) g/dL Albumin 4.1 (3.2-5.5) g/dL Globulin 2.8 (2.1-4.2) g/dL Albumin/Globulin Ratio 1.5 (1.0-2.2) Lipase 38 (11-82) U/L Nasal Screen MRSA (PCR) (NEGATIVE) Sepsis Event Note (H) Evaluation Current Stage of Sepsis: Ruled out Assessment/Plan Problem List (1) Acute stroke due to ischemia: (2) Weakness: Impression: Plan is for both the above Came in with strokelike symptoms including facial droop and arm weakness CT/CTA showed no large vessel occlusion or stenosis, but did show possible old right frontal infarct Patient has a pacemaker, meaning he cannot get an MRI here Follow-up CT head at 24 hours PT recommends SNF SINGER AND UNLOADER recommends follow-up in the outpatient setting for continued speech therapy Holding Pradaxa per neuro recs Aspirin 81 mg daily (3) Infection of wound due to methicillin resistant Staphylococcus aureus (MRSA): Impression: Patient has longstanding wounds, now on his left heel/foot Sees wound care in [place] Recently was found to have MRSA in the wound bed He has completed Dalvance, prescribed by ID Continue daily wound care, patient has been getting wound bed cleaned with Vashe, and then painted with iodine based cream (4) Congestive heart failure: Impression: Per , recent echo shows preserved EF No acute concerns at this time (5) Afib: Impression: Longstanding history of atrial fibrillation on Pradaxa, amiodarone, carvedilol Holding Pradaxa due to acute stroke
--- NOTE | 2025-07-19 08:35 | CT Report ---
PROCEDURE: CT Head WO INDICATIONS: f/u acute cva TECHNIQUE: CT of the head was performed, without intravenous contrast. Reformats: Coronal and sagittal. For radiation dose reduction, the following was used: automated exposure control, adjustment of mA and/or kV according to patient size. COMPARISON: 06/10/2025, 07/17/2025, 08/23/2023 FINDINGS: Image quality: Diagnostic. CSF spaces: Basal cisterns are patent. No extra-axial fluid collections. Ventricles are normal in size and shape. Brain: No midline shift. No intracranial mass effect or hemorrhage. Diaz- white matter interface is normal. There is a stable right frontal lobe infarction. Age-appropriate brain parenchymal volume loss and chronic small vessel ischemic change can be seen. Skull and face: Calvarium and visualized facial bones are intact, without suspicious lesions. Sinuses: Visualized sinuses and mastoids are clear. IMPRESSION: Stable right frontal lobe infarction. No holden new findings are seen. No hemorrhage is seen. Reviewed by: Rigoberto Castro MD on 07/19/2025 7:31 AM [facility] Approved by: Rigoberto Castro MD on 07/19/2025 7:31 AM [facility] Station ID: [id number]
[2025-07-19] MEDS ORDERED: CADEXOMER IODINE TOP PRN (10:46)
--- NOTE | 2025-07-19 13:01 | PROVIDER PROGRESS NOTE ---
Subjective Prog Note Date Prog Note Date: 07/19/25 Subjective Pt reports feeling: Improved Current Medications Current Medications Current Medications: Current Medications Generic Name Dose Route Start Last Admin Trade Name Freq PRN Reason Stop Dose Admin Acetaminophen 650 mg 07/17/25 22:34 Acetaminophen 325 Mg Tablet PO Q4HR PRN Pain 1 to 4, or Fever Amiodarone HCl 200 mg 07/17/25 23:00 07/18/25 21:29 Amiodarone 200 Mg Tablet PO 200 mg HS NIRAJ Administration Aspirin 81 mg 07/18/25 15:15 07/19/25 08:34 Aspirin Ec 81 Mg Tablet PO 81 mg DAILY NIRAJ Administration Atorvastatin Calcium 80 mg 07/18/25 09:00 07/19/25 08:34 Atorvastatin 40 Mg Tablet PO 80 mg DAILY NIRAJ Administration Carvedilol 12.5 mg 07/17/25 23:00 07/19/25 08:34 Carvedilol 12.5 Mg Tablet PO 12.5 mg BID NIRAJ Administration Empagliflozin 25 mg 07/18/25 09:00 07/19/25 08:34 Empagliflozin 25 Mg Tablet PO 25 mg DAILY NIRAJ Administration Finasteride 5 mg 07/17/25 23:00 07/18/25 21:29 Finasteride 5 Mg Tablet PO 5 mg HS NIRAJ Administration Fluticasone Propionate 1 sprays 07/18/25 09:00 07/19/25 08:34 Fluticasone Nasal Barton SHANNON 1 applic DAILY NIRAJ Administration Insulin Human Lispro 1 - 5 unit 07/18/25 08:00 07/19/25 11:36 Insulin Lispro 300 Unit/3 Ml Pen SUBQ Not Given 0800,1200,1700,2100 [facility] Protocol Ondansetron HCl 4 mg 07/17/25 22:34 Ondansetron 4 Mg/2 Ml Vial IVP Q6HR PRN Nausea / Vomiting Sodium Chloride 10 ml 07/17/25 22:34 Sodium Chloride Flush 0.9% 10 Ml Syringe IVP PRN PRN NEEDED PER PROVIDER ORDERS Sodium Chloride 10 ml 07/18/25 01:00 07/19/25 08:34 Sodium Chloride Flush 0.9% 10 Ml Syringe IVP 10 ml 0100,0900,1700 NIRAJ Administration Objective Vital Signs/Intake & Output Reviewed Vital Signs: Yes Vital Signs: Vital Signs x48h Temp Pulse Resp BP Pulse Ox 07/19/25 09:00 97.7 F 66 16 132/62 H 96 07/19/25 06:45 97.7 F 67 18 143/83 H 94 Intake & Output: Intake & Output 07/16/25 07/17/25 07/18/25 07/19/25 23:59 23:59 23:59 23:59 Intake Total 1490 / 1490 480 / 480 Output Total 2074 / 2074 600 / 600 Balance -585 / -585 -120 / -120 Weight (kg) 95.254 kg 92.5 kg Objective General Appearance: positive No acute distress and Alert Eyes Bilateral: positive Normal inspection Respiratory: positive Chest non-tender and No respiratory distress Cardiovascular: positive Irregularly irregular Abdomen: positive Non-tender Skin: positive Other (Wound on left foot, dressing in place) Neurologic/Psychiatric: positive Oriented x3, Slurred/abnml speech (Speech is a bit improved from yesterday) and Other (Trace right sided facial droop, left pronator drift at 10 seconds) Lab Results 07/17/25 20:26 07/17/25 20:26 Other Labs: Lab Results x24hrs 07/19/25 07/19/25 07/18/25 Range/Units 11:34 07:52 20:32 POC Whole Bld Glucose 140 114 121 (70-100) mg/dL 07/18/25 Range/Units 16:26 POC Whole Bld Glucose 146 (70-100) mg/dL Sepsis Event Note (H) Evaluation Current Stage of Sepsis: Ruled out Assessment/Plan Problem List (1) Acute stroke due to ischemia: (2) Weakness: Impression: Plan is for both the above Came in with strokelike symptoms including facial droop and arm weakness CT/CTA showed no large vessel occlusion or stenosis, but did show possible old right frontal infarct Patient has a pacemaker, meaning he cannot get an MRI here PT recommends SNF SUBCONTRACT MANAGER recommends follow-up in the outpatient setting for continued speech therapy 07/19: Follow-up CT shows stable appearing infarct with no holden new findings. I discussed this case with Dr. Guardado, teleneurology. He recommended that we place patient on apixaban and discontinue aspirin so I will do that effective tomorrow. At this point, patient is medically clear. While we are waiting on SNF, he will undergo echocardiogram with bubble study (3) Infection of wound due to methicillin resistant Staphylococcus aureus (MRSA): Impression: Patient has longstanding wounds, now on his left heel/foot Sees wound care in [place] Recently was found to have MRSA in the wound bed He has completed Dalvance, prescribed by ID Continue daily wound care, patient has been getting wound bed cleaned with Vashe, and then painted with iodine based cream (4) Congestive heart failure: Impression: Per , recent echo shows preserved EF No acute concerns at this time (5) Afib: Impression: Longstanding history of atrial fibrillation on Pradaxa, amiodarone, carvedilol Holding Pradaxa due to acute stroke
--- NOTE | 2025-07-19 15:53 | PHARMACY PROGRESS NOTE ---
Best Possible Medication History Admit Date and Time: 07/17/25 [id number] Home Medications Medication Instructions Recorded Confirmed Type metformin 500 mg tablet 1,000 mg PO BID 09/09/17 History amiodarone 200 mg tablet 200 mg PO HS 08/28/24 History atorvastatin 40 mg tablet 80 mg PO DAILY 08/28/2406/26 History empagliflozin 25 mg tablet 12.5 mg PO QAM 08/28/24 History (Jardiance) finasteride 5 mg tablet 5 mg PO DAILY 08/28/2407/17 History losartan 25 mg tablet 25 mg PO DAILY 08/28/2406/26 History multivitamin 1 tab PO QAM 08/28/24 History potassium chloride 10 mEq 10 meq PO BID 08/28/2407/17 History tablet,extended release spironolactone 25 mg tablet 12.5 mg PO DAILY 08/28/24 07/17/25 History torsemide 10 mg tablet 20 mg PO DAILY 08/28/2406/26 History trazodone 50 mg tablet 50 mg PO HS 08/28/24 5 History dabigatran etexilate 150 mg capsule 150 mg PO BID 06/2607/17/25 History ferrous sulfate 325 mg (65 mg 325 mg PO DAILY 07/17/25 07/17/25 History iron) tablet (Feosol) carvedilol 25 mg tablet 25 mg PO BID 07/19/25 History cholecalciferol (vitamin D3) 125 125 mcg PO DAILY 06/2607/19/25 History mcg (5,000 unit) tablet cyanocobalamin (vitamin B-12) 1,000 mcg PO DAILY 07/1907/19/25 History 1,000 mcg tablet (Vitamin B-12) glucosamine 500 1 cap PO BID 07/19/25 History [id number] comp 400 mg-D3 667 unit-C-Mn cap zinc 50 mg tablet 50 mg PO DAILY 07/19/2506/26 History Processed by: Pharmacy Medications reviewed in ED?: No Medication History completed: Yes Patient Interview: Completed Secondary Source(s): Spouse/Significant other and Insurance records [facility] Statement: As the person ultimately responsible for medication therapy, providers are able to order a medication from an existing home medication list in [facility] via the "Reconcile Routine" prior to Confirmation of that medication by practice support specialist. Such practice is discouraged except when the physician, in their clinical judgment, deems that a medical need exists for a medication without regard to previous use.
[2025-07-20] MEDS: APIXABAN 5 MG TABLET PO SCH (08:17)
[2025-07-20 10:28] LABS: HCT - HEMATOCRIT 41.9 % (42.0-52.0); HGB - HEMOGLOBIN 13.0 g/dL (14.0-18.0); MEAN PLATELET VOLUME 8.9 fL (7.4-11.4); NRBC ABSOLUTE COUNT (AUTO) 0.00 x10^3/uL; NUCLEATED RED BLOOD CELLS AUTO 0.0 /100WBC; PLT - PLATELET COUNT 169 10^3/uL (130-450); RED CELL DISTRIBUTION WIDTH 14.2 % (12.0-15.0)
[2025-07-20 11:01] LABS: BUN - BLOOD UREA NITROGEN 19.0 mg/dL (6-20); CARBON DIOXIDE - CO2 25.0 mmol/L (21-32); CREATININE 0.9 mg/dL (0.6-1.3); GFR - MDRD 80.0 (>89)
[2025-07-20 11:04] LABS: ESTIMATED AVERAGE GLUCOSE 128 mg/dL (70-100); HEMOGLOBIN A1c% 6.1 % (4.27-6.07)
--- NOTE | 2025-07-20 13:42 | PROVIDER PROGRESS NOTE ---
Subjective Prog Note Date Prog Note Date: 07/20/25 Subjective Pt reports feeling: Improved Subjective: He has improved much since yesterday. reportedly yesterday was sleepy, confused, unable to stay up in the chair for any length of time. This morning, he was able to get up, sat in the chair for breakfast and a friend was able to visit. he was then able to work with PT, had lunch, and now his , Ignacia is here. She gave him 4oz cranberry juice, not thickened, and he drank the whole thing without coughing. he is requesting that he not be on thickened liquids. appreciate that oral care items in use at bedside this AM. Current Medications Current Medications Current Medications: Current Medications Generic Name Dose Route Start Last Admin Trade Name Freq PRN Reason Stop Dose Admin Acetaminophen 650 mg 07/17/25 22:34 Acetaminophen 325 Mg Tablet PO Q4HR PRN Pain 1 to 4, or Fever Amiodarone HCl 200 mg 07/17/25 23:00 07/19/25 20:50 Amiodarone 200 Mg Tablet PO 200 mg HS NIRAJ Administration Apixaban 5 mg 07/20/25 09:00 07/20/25 08:17 Apixaban 5 Mg Tablet PO 5 mg BID NIRAJ Administration Atorvastatin Calcium 80 mg 07/18/25 09:00 07/20/25 08:17 Atorvastatin 40 Mg Tablet PO 80 mg DAILY NIRAJ Administration Carvedilol 12.5 mg 07/17/25 23:00 07/20/25 08:17 Carvedilol 12.5 Mg Tablet PO 12.5 mg BID NIRAJ Administration Empagliflozin 25 mg 07/18/25 09:00 07/20/25 08:17 Empagliflozin 25 Mg Tablet PO 25 mg DAILY NIRAJ Administration Finasteride 5 mg 07/17/25 23:00 07/19/25 20:50 Finasteride 5 Mg Tablet PO 5 mg HS NIRAJ Administration Fluticasone Propionate 1 sprays 07/18/25 09:00 07/20/25 08:17 Fluticasone Nasal Vallecitos SHANNON 1 applic DAILY NIRAJ Administration Insulin Human Lispro 1 - 5 unit 07/18/25 08:00 07/20/25 11:58 Insulin Lispro 300 Unit/3 Ml Pen SUBQ 1 unit 0800,1200,1700,2100 NIRAJ Administration Protocol Ondansetron HCl 4 mg 07/17/25 22:34 Ondansetron 4 Mg/2 Ml Vial IVP Q6HR PRN Nausea / Vomiting Sodium Chloride 10 ml 07/17/25 22:34 Sodium Chloride Flush 0.9% 10 Ml Syringe IVP PRN PRN NEEDED PER PROVIDER ORDERS Sodium Chloride 10 ml 07/18/25 01:00 07/20/25 08:18 Sodium Chloride Flush 0.9% 10 Ml Syringe IVP 10 ml 0100,0900,1700 [facility] Administration Objective Vital Signs/Intake & Output Reviewed Vital Signs: Yes Vital Signs: Vital Signs x48h Temp Pulse Resp BP Pulse Ox 07/20/25 07:22 36.1 C L 65 18 146/90 H 95 Intake & Output: Intake & Output 07/17/25 07/18/25 07/19/25 07/20/25 23:59 23:59 23:59 23:59 Intake Total 1490 / 1490 1500 / 1500 400 / 400 Output Total 2075 / 2075 1100 / 1100 700 / 700 Balance -585 / -585 400 / 400 -300 / -300 Weight (kg) 95.254 kg 92.5 kg Objective General Appearance: positive No acute distress and Alert Eyes Bilateral: positive Normal inspection Respiratory: positive Chest non-tender and No respiratory distress Cardiovascular: positive Irregularly irregular Abdomen: positive Non-tender Skin: positive Other (Wound on left foot, dressing in place) Neurologic/Psychiatric: positive Oriented x3, Slurred/abnml speech (speech is clear today. ) and Other (Trace right sided facial droop) Lab Results 07/20/25 10:16 07/20/25 10:16 Other Labs: Lab Results x24hrs 07/20/25 07/20/25 07/20/25 Range/Units 11:22 10:16 07:45 WBC 6.6 (4.8-10.8) x10^3/uL RBC 4.19 L (4.70-6.10) 10^6/uL Hgb 13.0 L (14.0-18.0) g/dL Hct 41.9 L (42.0-52.0) % MCV 100.0 H (80.0-94.0) fL MCH 31.0 (27.0-31.0) pg MCHC 31.0 L (32.0-36.0) g/dL RDW 14.2 (12.0-15.0) % Plt Count 169 (130-450) 10^3/uL MPV 8.9 (7.4-11.4) fL Neut # (Auto) 4.8 (1.5-6.6) 10^3/uL Lymph # (Auto) 1.0 L (1.5-3.5) 10^3/uL Mckinley # (Auto) 0.5 (0.0-1.0) 10^3/uL Eos # (Auto) 0.2 (0.0-0.7) 10^3/uL Baso # (Auto) 0.1 (0.0-0.1) 10^3/uL Absolute Nucleated RBC 0.00 x10^3/uL Nucleated RBC % 0.0 /100WBC Sodium 136 (135-145) mmol/L Potassium 4.2 (3.5-4.5) mmol/L Chloride 104 (101-111) mmol/L Carbon Dioxide 25 (21-32) mmol/L Anion Gap 7.0 (6-13) BUN 19 (6-20) mg/dL Creatinine 0.9 (0.6-1.3) mg/dL Estimated GFR (MDRD) 80 L (>89) Glucose 152 H (74-104) mg/dL POC Whole Bld Glucose 174 106 (70-100) mg/dL Estimat Average Glucose 128 H (70-100) mg/dL Hemoglobin A1c % 6.1 H (4.27-6.07) % Calcium 9.5 (8.5-10.3) mg/dL 07/19/25 07/19/25 Range/Units 20:35 16:54 WBC (4.8-10.8) x10^3/uL RBC (4.70-6.10) 10^6/uL Hgb (14.0-18.0) g/dL Hct (42.0-52.0) % MCV (80.0-94.0) fL MCH (27.0-31.0) pg MCHC (32.0-36.0) g/dL RDW (12.0-15.0) % Plt Count (130-450) 10^3/uL MPV (7.4-11.4) fL Neut # (Auto) (1.5-6.6) 10^3/uL Lymph # (Auto) (1.5-3.5) 10^3/uL Mckinley # (Auto) (0.0-1.0) 10^3/uL Eos # (Auto) (0.0-0.7) 10^3/uL Baso # (Auto) (0.0-0.1) 10^3/uL Absolute Nucleated RBC x10^3/uL Nucleated RBC % /100WBC Sodium (135-145) mmol/L Potassium (3.5-4.5) mmol/L Chloride (101-111) mmol/L Carbon Dioxide (21-32) mmol/L Anion Gap (6-13) BUN (6-20) mg/dL Creatinine (0.6-1.3) mg/dL Estimated GFR (MDRD) (>89) Glucose (74-104) mg/dL POC Whole Bld Glucose 144 138 (70-100) mg/dL Estimat Average Glucose (70-100) mg/dL Hemoglobin A1c % (4.27-6.07) % Calcium (8.5-10.3) mg/dL Sepsis Event Note (H) Evaluation Current Stage of Sepsis: Ruled out Assessment/Plan Problem List (1) 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 Follow-up CT shows stable appearing infarct with no holden new findings. Patient has a pacemaker, meaning he cannot get an MRI here PT recommends SNF- re eval today shows poor insight into deficits, moderate fall risk with quad cane. He will benefit from SNF. Prior to this event, he has been engaged with PT in the OP setting, and that has been helpful for fall prevention strategies, as well as recovery measures after falls. His is strongly reinforcing SNF recommendation. She is very concerned about how he might do at home. [employer] recommends follow-up in the outpatient setting for continued speech therapy. His swallow has improved greatly from eval 2 days ago, and he did drink some thin liquids today w/o incident, and per his request, I am removing the thickened liquids from his diet. On 07/19 case was discussed this case with Dr. Guardado, teleneurology. He recommended that we place patient on apixaban and discontinue aspirin. That change was implemented. At this point, patient is medically clear. While we are waiting on SNF, he will undergo echocardiogram with bubble study- that study remains pending at this [facility] [place]. 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 (3) Congestive heart failure: Impression: Per , recent echo shows preserved EF No acute concerns at this time. I am resuming home coreg and losartan, as well as diuretic treatment. He is on GDMT to include Jardiance. (4) Diabetes mellitus: Impression: At home he takes Jardiance and metformin. Here, blood sugars relatively well controlled. 2u of Lispro given in last 24h. At home he does POC fasting glucose weekly and states it is usually between 100-105. A1C of 6.1% appropriate and non contributory to current situation. 07/19/25 07/19/25 07/19/25 07:52 11:34 16:54 POC Whole Bld Glucose 114 140 138 Hemoglobin A1c % 07/19/25 07/20/25 07/20/25 20:35 07:45 10:16 POC Whole Bld Glucose 144 106 Hemoglobin A1c % 6.1 H 07/20/25 11:22 POC Whole Bld Glucose 174 Hemoglobin A1c % (5) Afib: Impression: Longstanding history of atrial fibrillation on Pradaxa, amiodarone, carvedilol Initially held pradaxa due to acute CVA, at recommendation of telestroke neuro, this was restarted and ASA was d/c'ed. This patient's diagnosis and treatment plan was discussed this AM with attending physician as a part of multi disciplinary rounding meeting. I have spent 53 minutes in the care of this patient today. This includes time [id number], review and ordering of diagnostic imaging and laboratory studies . Monitoring the patient's signs symptoms, evaluation of medication effectiveness and patient's response to treatment.
--- NOTE | 2025-07-20 19:07 | Discharge Summary ---
"Discharge Summary Admit Date: 07/17/25 Discharge Date: 07/21/25 Discharging Provider: Katrin Guillen PA-C Primary Care Provider: Donna Yao MD Code Status: Attempt Resuscitation DIAGNOSES Discharge Diagnoses with Status of Each Condition: Acute CVA Left heel and foot wounds, MRSA colonization Heart failure with preserved ejection fraction, chronic and stable Diabetes mellitus, chronic and stable, A1c 6.1% Atrial fibrillation, chronic and stable, is on Pradaxa at home. HPI History of Present Illness: 89-year-old male presents to the emergency department with a right sided facial droop. noticed this at 5 PM. Unclear when the last known normal was. He reportedly was seen in the emergency department earlier today and arrived home around 330. EMS did not ask when the last seen normal was, they state that the states she noticed it at 5. Patient used to work in [place], had ulcer in his leg, overalldoing well able to move all 4 ext in er, passed bedside swallow screen in ER, has facial droop, no pain, no headache, no N/v/d, no fever, no other complaints. at bedside states he was weak the whole day, we discussed code status and ACP, patient expresses desire to be full code. 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 Follow-up CT shows stable appearing infarct with no holden new findings. Patient has a pacemaker, therefore unable to complete MRI PT recommends SNF initially and re eval is consistent in this recommendation with patient showing poor insight into deficits, moderate fall risk with quad cane. He will benefit from SNF. Prior to this event, he has been engaged with PT in the OP setting, and that has been helpful for fall prevention strategies, as well as recovery measures after falls. His is strongly reinforcing SNF recommendation. She is very concerned about how he might do at home. BRICK BURNER HEAD recommends follow-up in the outpatient setting for continued speech therapy. His swallow has improved greatly from eval 2 days ago, and he did drink some thin liquids w/o incident, and per his request, I am removing the thickened liquids from his diet. Would recommend re eval by BRICK BURNER HEAD at SNF, and he did not get further intervention here as services not available. Telestroke neurology consulted twice. Once by the emergency department, recommendation was for aspirin 81 mg daily and holding Pradaxa for 2 to 3 days. Reconsulted on hospital day 3 after follow-up CT shows stable appearing infarct and recommendation was to place the patient on apixaban. This was done. 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 Continue daily wound care, patient has been getting wound bed cleaned with Vashe, and then Iodosorb paste, this is continued here. would recommend continuation at SNF and continued followup with wound care in [place] at [facility]. Congestive heart failure: Per , recent echo shows preserved EF No acute concerns at this time. I am resuming home coreg and losartan, as well as diuretic treatment. He is on GDMT to include Jardiance. Repeat Echocardiogram is done on 07/18/25, but not yet read. Diabetes mellitus: At home he takes Jardiance and metformin. I have resumed these meds on discharge. Here, blood sugars relatively well controlled. 3u of Lispro given in last 24h. At home he does POC fasting glucose weekly and states it is usually between 100- 105. A1C of 6.1% appropriate and non contributory to current situation. Afib: Longstanding history of atrial fibrillation on Pradaxa, amiodarone, carvedilol Initially held pradaxa due to acute CVA, at recommendation of telestroke neuro, this was restarted and ASA was d/c'ed. ALLERGIES Allergies Allergy/AdvReac Type Severity Reaction Status Date / Time No Known Drug Allergies Allergy Verified 07/17/25 20:35 MEDICATIONS Ambulatory Orders Medication Instructions Recorded Confirmed acetaminophen 325 mg tablet 650 mg (2 x 325 mg) PO Q4H R PRN 07/20/25 Pain 1 to 4, or Fever #60 tabs amiodarone 200 mg tablet 200 mg PO HS #30 tabs 07/17/25 apixaban 5 mg tablet (Eliquis) 5 mg PO BID #60 tabs atorvastatin 40 mg tablet 80 mg (2 x 40 mg) PO DAILY # 30 tabs 07/21/25 07/17/25 cadexomer iodine 0.9 % topical gel 40 g topical DAILY #40 grams 07/21/25 (Iodosorb) carvedilol 12.5 mg tablet 12.5 mg PO BID #60 tabs 06/26 02/16 cholecalciferol (vitamin D3) 125 125 mcg PO DAILY #30 tabs 07/21/25 07/19/25 mcg (5,000 unit) tablet cyanocobalamin (vitamin B-12) 1,000 mcg PO DAILY #30 t abs 07/21/25 07/19/25 1,000 mcg tablet (Vitamin B-12) empagliflozin 25 mg tablet 12.5 mg (1/2 x 25 mg) PO QA M #30 07/21/25 07/19/25 (Jardiance) tabs ferrous sulfate 325 mg (65 mg 325 mg PO DAILY #30 tabs 07/21/25 07/17/25 iron) tablet (Feosol) finasteride 5 mg tablet 5 mg PO DAILY #30 tabs 07/2107/17/25 fluticasone propionate 50 1 spray intranasal DAILY #16 grams 07/21/25 mcg/actuation nasal spray,suspension losartan 25 mg tablet 25 mg PO DAILY #30 tabs 06/2607/19/25 metformin 500 mg tablet 1,000 mg (2 x 500 mg) PO BID #120 07/21/25 07/19/25 tabs multivitamin 1 tab PO QAM #30 tabs 07/17/25 potassium chloride 10 mEq 10 meq PO BID #60 tabs 07/2107/17/25 tablet,extended release spironolactone 25 mg tablet 12.5 mg (1/2 x 25 mg) PO D AILY #30 07/21/25 07/17/25 tabs torsemide 10 mg tablet 20 mg (2 x 10 mg) PO DAILY # 60 tabs 07/21/25 07/17/25 PHYSICAL EXAM AT DISCHARGE Vital Signs: Vital Signs x48h Temp Pulse Resp BP Pulse Ox 07/21/25 07:56 36.4 C L 65 16 127/74 95 LABS 07/20/25 10:16 07/20/25 10:16 DIAGNOSTIC IMAGING Diagnostic Imaging Results Comments: Echocardiogram. 07/14/2025. Done but not read CT head 07/17/2025: No acute hemorrhage, possible old right frontal infarct. CTA head neck 07/17/2025: No LVO or high-grade stenosis. Mild to moderate intracranial and extracranial calcifications most significant of the right vertebral origin and bilateral cavernous ICAs. Dilated mid ascending aorta measuring 4.[address] 07/19/2025: Stable right frontal lobe infarction. No new findings. SEPSIS Current Stage of Sepsis: Ruled out FOLLOW UP Follow Up: PCP on discharge from nursing home rehab. Continued follow-up with wound care clinic in [place]. TIME SPENT Time Spent in Discharge (Minutes): 45 Discharge Plan Discharge Patient Disposition: [facility] DC/Xfer Condition: Stable Prescriptions: New acetaminophen 325 mg Tablet 650 mg PO Q4HR PRN (Reason: Pain 1 to 4, or Fever) Qty: 60 0RF carvedilol 12.5 mg Tablet 12.5 mg PO BID Qty: 60 0RF fluticasone propionate 50 mcg/actuation [place],Suspension 1 spray intranasal DAILY Qty: 16 0RF Eliquis 5 mg Tablet 5 mg PO BID Qty: 60 0RF Iodosorb 0.9 % gel 40 g topical DAILY Qty: 40 0RF Continued multivitamin Tablet 1 tab PO QAM Qty: 30 0RF atorvastatin 40 mg tablet 80 mg PO DAILY Qty: 30 0RF metformin 500 MG tablet 1,000 mg PO BID Qty: 120 0RF amiodarone 200 mg tablet 200 mg PO HS Qty: 30 0RF cyanocobalamin (vitamin B-12) [Vitamin B-12] 1,000 mcg tablet 1,000 mcg PO DAILY Qty: 30 0RF torsemide 10 mg tablet 20 mg PO DAILY Qty: 60 0RF potassium chloride 10 mEq tablet extended release 10 meq PO BID Qty: 60 0RF spironolactone 25 mg tablet 12.5 mg PO DAILY Qty: 30 0RF ferrous sulfate [Feosol] 325 mg (65 mg iron) tablet 325 mg PO DAILY Qty: 30 0RF losartan 25 mg tablet 25 mg PO DAILY Qty: 30 0RF finasteride 5 mg tablet 5 mg PO DAILY Qty: 30 0RF cholecalciferol (vitamin D3) 125 mcg (5,000 unit) tablet 125 mcg PO DAILY Qty: 30 0RF Jardiance 25 mg tablet 12.5 mg PO QAM Qty: 30 0RF Discontinued dabigatran etexilate 150 mg capsule 150 mg PO BID carvedilol 25 mg tablet 25 mg PO BID [id number] [id number] mg-mg-unit capsule 1 cap PO BID zinc 50 mg tablet 50 mg PO DAILY trazodone 50 mg tablet 50 mg PO HS Activity Restrictions: Activity as Tolerated Diet: Regular Health Concerns: Your Diagnosis You were hospitalized for anacute right frontal stroke. A stroke occurs when blood flow to part of the brain is blocked, causing brain cells to be damaged. You are being discharged on a blood-thinning medication calledapixaban (Eliquis)to help prevent another stroke. Your Medications Apixaban (Eliquis): Take as prescribed by your doctor, typically 5 mg by mouth twice daily (morning and evening), or 2.5 mg twice daily if your doctor has adjusted the dose based on your age, weight, or kidney function. * Take this medication at the same times each day * Do NOT skip doses or stop taking this medication without talking to your doctor first - stopping suddenly increases your risk of having another stroke * If you miss a dose, take it as soon as you remember on the same day, then continue with your regular schedule the next day. Do NOT double up on doses * This medication can be taken with or without food * If you have trouble swallowing pills, talk to your pharmacist about how to take this medication Warning Signs of Another Stroke - CALL 911 IMMEDIATELY Call 911 right away if you experience any of these symptoms: * Sudden weakness or numbnessof the face, arm, or leg, especially on one side of the body * Sudden confusionor trouble speaking or understanding speech * Sudden trouble seeingin one or both eyes * Sudden trouble walking, dizziness, or loss of balance or coordination * Sudden severe headachewith no known cause Remember: Time is critical. Do not wait to see if symptoms go away. Call 911 immediately. Bleeding Precautions Because apixaban is a blood thinner, you have an increased risk of bleeding.Watch for these signs of bleeding and contact your doctor or go to the emergency room if you notice * Unusual bruising or bleeding that won't stop * Red, pink, or brown urine * Black or bloody stools (bowel movements that look like tar) * Coughing up blood * Vomiting blood or material that looks like coffee grounds * Severe headache or dizziness * Unusual pain, swelling, or discomfort * Bleeding from gums or nose that doesn't stop quickly Important Safety Tips: * Tell ALL your doctors and dentists that you are taking apixaban before any procedure, surgery, or dental work * Avoid activities with high risk of injury or falls * Use a soft toothbrush and electric razor to minimize bleeding * Avoid taking aspirin, ibuprofen (Advil, Motrin), naproxen (Aleve), or other anti-inflammatory medications unless specifically instructed by your doctor * Limit alcohol to no more than 1-2 drinks per day Lifestyle Changes to Prevent Another Stroke Diet: * Follow a Mediterranean-style diet or DASH (Dietary Approaches to Stop Hypertension) diet * Eat plenty of fruits, vegetables, whole grains, fish, nuts, and olive oil * Limit salt intake to less than 2,500 mg (about 1 teaspoon) per day * Reduce red meat, processed foods, and sweets * Limit saturated fats and fried foods Physical Activity: * Start with light activity as tolerated and gradually increase * Goal: At least 10 minutes of moderate exercise 4 times per week, or 20 minutes of vigorous exercise 2 times per week * Break up sitting time with light activity every 30 minutes * Talk to your doctor before starting any new exercise program Other Important Changes: * DO NOT SMOKE- Smoking doubles your risk of another stroke. Ask your doctor about smoking cessation programs and medications * Avoid illicit drugs, especially cocaine and methamphetamine * Maintain a healthy weight * Limit alcohol consumption Managing Your Health Conditions Blood Pressure: * Check your blood pressure regularly at home if instructed * Goal: Less than 130/80 mm Hg (your doctor will tell you your specific goal) * Take all blood pressure medications as prescribed Diabetes (if applicable): * Monitor blood sugar as directed * Take diabetes medications as prescribed * Goal A1C: 7% or less Cholesterol: * Take cholesterol medications (statins) as prescribed * Follow up for cholesterol monitoring as directed Follow-Up Care Appointments: * Schedule a follow-up appointment with your primary care doctor within 1-2 weeks of discharge * Keep all scheduled appointments with specialists (neurologist, drug room operator, etc.) * You may need additional testing such as heart monitoring to check for irregular heart rhythms Rehabilitation: * Attend all physical therapy, occupational therapy, and speech therapy appointments as scheduled * Continue exercises at home as instructed by your therapists * Report any new difficulties with movement, balance, speech, or swallowing When to Contact Your Doctor Call your doctor if you experience: * Any signs of stroke (listed above - call 911 instead) * Any signs of bleeding (listed above) * New or worsening weakness, numbness, or difficulty with speech * Difficulty swallowing * Falls or injuries * Fever over 100.4F (38C) * New or worsening depression or anxiety * Questions about your medications Important Reminders * Carry a list of all your medications with you at all times * Wear a medical alert bracelet indicating you take a blood thinner * The risk of having another stroke is highest in the first few weeks to months after your stroke, which is why taking your medications and following these instructions is so important * Depression is common after stroke - tell your doctor if you feel sad, hopeless, or lose interest in activities Print Language: Beninese Patient Instructions: Discharge Instructions for Stroke Stand Alone Forms: SNF Discharge Follow-up Care: DONNA YAO MD [Primary Care Provider, Family Practice] Vitals documented within 30 minutes of discharge?: Yes"
[2025-07-21] MEDS: SPIRONOLACTONE 25 MG TABLET PO SCH (09:01)
[2025-07-21] MEDS: BUMETANIDE 1 MG TABLET PO SCH (09:01)
[2025-07-21] MEDS: LOSARTAN 50 MG TABLET PO SCH (09:01)
[2025-07-21 11:27] VITALS: BP 133/73; TEMP 97.2; O2SAT 98
== END 2025-07-21 11:27 | DRG 65 ==
LOC: ED 20:07 → MS2 23:46
PROVIDERS: ADMIT Internal Medicine; ATTEND Internal Medicine
DX: E11.9 Type 2 diabetes mellitus without complications; E11.621 Type 2 diabetes mellitus with foot ulcer; Z95.810 Presence of automatic (implantable) cardiac defibrillator; I45.10 Unspecified right bundle-branch block; Z79.01 Long term (current) use of anticoagulants; S91.302A Unspecified open wound, left foot, initial encounter; I63.9 Cerebral infarction, unspecified; Z79.899 Other long term (current) drug therapy; R29.708 NIHSS score 8; I50.9 Heart failure, unspecified; R29.810 Facial weakness; B95.62 Methicillin resistant Staphylococcus aureus infection as the cause of diseases classified elsewhere; I50.32 Chronic diastolic (congestive) heart failure; R47.81 Slurred speech; L97.529 Non-pressure chronic ulcer of other part of left foot with unspecified severity; I48.20 Chronic atrial fibrillation, unspecified; Z79.84 Long term (current) use of oral hypoglycemic drugs; I48.91 Unspecified atrial fibrillation; R53.1 Weakness